=== PATIENT | male | born 1945 | race Hispanic/Latino ===

== ENCOUNTER 2020-08-31 15:21 | Outpatient (CLI) | payer MEDICARE ==
--- NOTE | 2020-08-31 16:57 | XRay Report ---
THORACIC SPINE 2 VIEWS INDICATION / CLINICAL INFORMATION: BACK PAIN. COMPARISON: None available. FINDINGS: VERTEBRAE: No acute fracture. No significant malalignment. DISC SPACES / FACET JOINTS:Moderate multilevel degenerative spondylosis is seen throughout the thorac ic spine. PARASPINAL SOFT TISSUES:No significant abnormality. ADDITIONAL FINDINGS: IVC filter is noted. Signer Name: Yevgeniy Tracy MD Signed: 08/31/2020 4:52 PM Workstation Name: [id number]
== END 2020-08-31 15:22 | disposition home or self-care (01) ==
LOC: XRAY 15:21
PROVIDERS: ATTEND Internal Medicine Hematology & Oncology
DX: M47.814 Spondylosis without myelopathy or radiculopathy, thoracic region (principal); M54.9 Dorsalgia, unspecified
CPT/HCPCS: 72080

== ENCOUNTER 2020-12-24 15:11 | Outpatient (CLI) | payer MEDICARE ==
--- NOTE | 2020-12-24 16:07 | XRay Report ---
CLINICAL DATA: PAIN IN NECK AND SHOULDER TECHNICAL DATA: AP, lateral, and odontoid views of the cervical spine were obtained. FINDINGS: Only the first 6 vertebral body are clearly visualized. The vertebral body heights are within normal limits. Bones are osteopenic. Anterior osteophytes are present throughout the cervical spine region IMPRESSION: 1. Osteopenia 2. Degenerative changes as noted Signer Name: Rajinder Kang MD Signed: 12/24/2020 4:03 PM Workstation Name: [id number]
== END 2020-12-24 15:12 | disposition home or self-care (01) ==
LOC: XRAY 15:11
PROVIDERS: ATTEND Internal Medicine Hematology & Oncology
DX: M47.812 Spondylosis without myelopathy or radiculopathy, cervical region (principal); M85.88 Other specified disorders of bone density and structure, other site
CPT/HCPCS: 72040

== ENCOUNTER 2021-01-14 11:36 | Outpatient (CLI) | payer MEDICARE ==
--- NOTE | 2021-01-14 13:24 | XRay Report ---
Right shoulder 2 views INDICATION: Tender FINDINGS: Glenohumeral and AC degenerative change. No displaced fracture. If there is concern for a s oft tissue mass MRI is recommended. Signer Name: Tyrel Bower MD Signed: 01/14/2021 1:20 PM Workstation Name: [id number]
== END 2021-01-14 11:37 | disposition home or self-care (01) ==
LOC: XRAY 11:36
PROVIDERS: ATTEND Internal Medicine Hematology & Oncology
DX: M19.011 Primary osteoarthritis, right shoulder (principal)

== ENCOUNTER 2021-03-17 10:10 | Emergency (ER) | payer MEDICARE ==
[2021-03-17 10:36] VITALS: BP 104/53
[2021-03-17 12:56] LABS: Basophils % (Auto) 0.7 % (0.0-1.8); Eosinophils # (Auto) 0.1 K/mm3 (0.0-0.4); Eosinophils % (Auto) 2.1 % (0.0-4.3); Hematocrit 32.5 % (35.5-45.6); Hemoglobin 10.4 gm/dl (11.8-15.2); Lymphocytes # (Auto) 1.3 K/mm3 (1.2-5.4); Lymphocytes % (Auto) 22.1 % (13.4-35.0); Mean Corpuscular HGB Conc 32 % (32-34); Mean Corpuscular Volume 87 fl (84-94); Monocytes # (Auto) 0.5 K/mm3 (0.0-0.8); Monocytes % (Auto) 8.6 % (0.0-7.3); Platelet Count 231 K/mm3 (140-440); Red Blood Count 3.76 M/mm3 (3.65-5.03); Red Cell Distribution Width 18.5 % (13.2-15.2)
[2021-03-17 13:11] LABS: Albumin 3.9 g/dL (3.9-5); Calcium 8.4 mg/dL (8.4-10.2)
== END 2021-03-17 15:40 | disposition home or self-care (01) ==
LOC: ED 10:10
DX: S62.112A Displaced fracture of triquetrum [cuneiform] bone, left wrist, initial encounter for closed fracture (principal); S52.515A Nondisplaced fracture of left radial styloid process, initial encounter for closed fracture; S20.219A Contusion of unspecified front wall of thorax, initial encounter; J18.9 Pneumonia, unspecified organism; J98.11 Atelectasis; R55 Syncope and collapse; I10 Essential (primary) hypertension; J44.9 Chronic obstructive pulmonary disease, unspecified; Z90.49 Acquired absence of other specified parts of digestive tract; Z98.890 Other specified postprocedural states; Z87.891 Personal history of nicotine dependence; Z79.2 Long term (current) use of antibiotics; W18.30XA Fall on same level, unspecified, initial encounter; Y93.89 Activity, other specified; Y92.89 Other specified places as the place of occurrence of the external cause; Y99.8 Other external cause status
CPT/HCPCS: 36415; 80053; 83880; 84484; 85025; 93005

== ENCOUNTER 2021-05-06 09:43 | Outpatient (CLI) | payer MEDICARE ==
--- NOTE | 2021-05-06 17:19 | Vascular Lab Report ---
DUPLEX DOPPLER ULTRASOUND CAROTID, BILATERAL INDICATION / CLINICAL INFORMATION: SYNCOPE. COMPARISON: None available. FINDINGS: RIGHT CAROTID: Moderate plaque in ICA proximally - PLAQUE ESTIMATE (%): 50-75% - CCA velocity: 64 cm/sec. - ICA peak systolic velocity: 148 cm/sec. - ICA/CCA PSV Ratio: 2.33 Right Vertebral Artery: Antegrade flow. LEFT CAROTID: Moderate plaque - PLAQUE ESTIMATE: 50-75% - CCA velocity: 67 cm/sec. - ICA peak systolic velocity: 166 cm/sec. - ICA/CCA PSV Ratio: 2.49 Left Vertebral Artery: Antegrade flow. IMPRESSION: 1. Right Internal Carotid Artery: 50-69% diameter stenosis. 2. Left Internal Carotid Artery: 50-69% diameter stenosis. Velocity criteria are extrapolated from diameter data as defined by the Society of Radiologists in Ul trasound Consensus Conference, Radiology 2003; 229;340-346. NO STENOSIS (NORMAL) * Plaque = none; ICA PSV < 125 cm/sec; ICA/CCA PSV Ratio < 2.0 <50% STENOSIS * Plaque < 50%; ICA PSV < 125 cm/sec; ICA/CCA PSV Ratio < 2.0 50-69% STENOSIS * Plaque > 50%; ICA PSV = 125-230 cm/sec; ICA/CCA PSV Ratio = 2.0-4.0 >70% BUT <100% STENOSIS * Plaque > 50%; ICA PSV > 230 cm/sec; ICA/CCA PSV Ratio > 4.0 NEAR OCCLUSION * Plaque = visible lumen; ICA PSV = high/low/none; ICA/CCA PSV Ratio = variable TOTAL OCCLUSION * Plaque = no lumen; ICA PSV = none; ICA/CCA PSV Ratio = N/A Signer Name: Tyrel Bower MD Signed: 05/06/2021 5:15 PM Workstation Name: [id number]
== END 2021-05-06 09:44 | disposition home or self-care (01) ==
LOC: VAS 09:43
PROVIDERS: ATTEND Internal Medicine Hematology & Oncology
DX: I65.23 Occlusion and stenosis of bilateral carotid arteries (principal)
CPT/HCPCS: 93880

== ENCOUNTER 2021-05-23 13:35 | Inpatient (IN) | payer MEDICARE ==
[2021-05-23] MEDS ORDERED: IPRATROPIUM 0.02% NEBU 2.5 ML IH ONE ×2 (17:19→20:06)
[2021-05-23] MEDS ORDERED: ALBUTEROL 2.5 MG/3 ML NEBU IH ONE ×2 (17:19→20:06)
--- NOTE | 2021-05-23 17:28 | Emergency Department Report ---
ED General Adult HPI - General Chief complaint: Dyspnea/Respdistress Stated complaint: MARKY/SOB Time Seen by Provider: 05/23/21 16:55 Source: EMS Mode of arrival: Stretcher Limitations: No Limitations - History of Present Illness Initial comments: Patient presents to the emergency department the chief complaint of a nagging cough that started yesterday. Patient states he has history of COPD and wears 2.5 L oxygen at home. Patient states last night he began to have a very severe cough which has persisted since his onset. Patient also complains of mild shortness of breath when trying to lay flat. Patient states this feels different than his COPD exacerbations. Patient complains of substernal chest pain that he describes as tightness in nature. Patient also tells me that he takes a water pill daily -: Sudden Severity scale (0 -10): 0 Consistency: constant Improves with: none Worsens with: movement Associated Symptoms: denies other symptoms Treatments Prior to Arrival: none - Related Data Home Medications Medication Instructions Recorded Confirmed Last Taken No Known Home Medications [No 02/04/20 02/04/20 Unknown Reported Home Medications] Previous Rx's Medication Instructions Recorded Last Taken Type Amoxicillin/Potassium Clav 1 each PO BID #10 tablet 03/17/21 Unknown Rx [Augmentin 875-125 Tablet] Allergies Allergy/AdvReac Type Severity Reaction Status Date / Time No Known Allergies Allergy Verified 07/24/20 15:58 ED Review of Systems ROS: Stated complaint: MARKY/SOB Other details as noted in HPI Constitutional: denies: chills, fever Eyes: denies: eye pain, eye discharge, vision change ENT: denies: ear pain, throat pain Respiratory: shortness of breath. denies: cough, wheezing Cardiovascular: denies: chest pain, palpitations Endocrine: no symptoms reported Gastrointestinal: denies: abdominal pain, nausea, diarrhea Genitourinary: denies: urgency, dysuria Musculoskeletal: denies: back pain, joint swelling, arthralgia Skin: denies: rash, lesions Neurological: denies: headache, weakness, paresthesias Psychiatric: denies: anxiety, depression Hematological/Lymphatic: denies: easy bleeding, easy bruising ED Past Medical Hx - Past Medical History Previous Medical History?: Yes Hx Hypertension: Yes Hx COPD: Yes - Surgical History Past Surgical History?: No Hx Cholecystectomy: Yes Additional Surgical History: bilateral hip replacement. colon rupture. hernia repair x 2 - Social History Smoking Status: Former Smoker Substance Use Type: Alcohol - Medications Home Medications: Home Medications Medication Instructions Recorded Confirmed Last Taken Type No Known Home Medications [No 02/04/20 02/04/20 Unknown History Reported Home Medications] Amoxicillin/Potassium Clav 1 each PO BID #10 tablet 03/17/21 Unknown Rx [Augmentin 875-125 Tablet] ED Physical Exam - General Limitations: No Limitations General appearance: alert, in no apparent distress - Head Head exam: Present: atraumatic, normocephalic - Eye Eye exam: Present: normal appearance, PERRL, EOMI - ENT ENT exam: Present: mucous membranes moist - Neck Neck exam: Present: normal inspection - Respiratory Respiratory exam: Present: normal lung sounds bilaterally, rales, other (Mild respiratory distress) - Cardiovascular Cardiovascular Exam: Present: regular rate, normal rhythm. Absent: systolic murmur, diastolic murmur, rubs, gallop - GI/Abdominal GI/Abdominal exam: Present: soft, normal bowel sounds. Absent: distended, tenderness - Rectal Rectal exam: Present: deferred - Extremities Exam Extremities exam: Present: normal inspection, pedal edema - Back Exam Back exam: Present: normal inspection - Neurological Exam Neurological exam: Present: alert, oriented X3, CN II-XII intact. Absent: motor sensory deficit - Psychiatric Psychiatric exam: Present: normal affect, normal mood - Skin Skin exam: Present: warm, dry, intact, normal color. Absent: rash ED Course Vital Signs 05/23/21 05/23/21 13:37 20:13 Pulse Rate 92 H Pulse Rate [ 94 H Bilateral] Respiratory 21 Rate Respiratory 20 Rate [Bilateral ] Blood Pressure 197/106 [Left] O2 Sat by Pulse 98 Oximetry ED Medical Decision Making - Lab Data Result diagrams: 05/23/21 17:37 05/23/21 17:37 Lab Results 05/23/21 05/23/21 05/23/21 Range/Units 17:37 17:37 17:37 WBC 6.5 (4.5-11.0) K/mm3 RBC 4.57 (3.65-5.03) M/mm3 Hgb 13.0 (11.8-15.2) gm/dl Hct 40.0 (35.5-45.6) % MCV 88 (84-94) fl MCH 29 (28-32) pg MCHC 33 (32-34) % RDW 19.3 H (13.2-15.2) % Plt Count 215 (140-440) K/mm3 Add Manual Diff Complete Total Counted 100 Seg Neutrophils % Reed Repairer Seg Neuts % (Manual) 86.0 H (40.0-70.0) % Lymphocytes % (Manual) 10.0 L (13.4-35.0) % Monocytes % (Manual) 4.0 (0.0-7.3) % Nucleated RBC % Not Reportable Seg Neutrophils # Man 5.6 (1.8-7.7) K/mm3 Band Neutrophils # 0.0 K/mm3 Lymphocytes # (Manual) 0.7 L (1.2-5.4) K/mm3 Abs React Lymphs (Man) 0.0 K/mm3 Monocytes # (Manual) 0.3 (0.0-0.8) K/mm3 Eosinophils # (Manual) 0.0 (0.0-0.4) K/mm3 Basophils # (Manual) 0.0 (0.0-0.1) K/mm3 Metamyelocytes # 0.0 K/mm3 Myelocytes # 0.0 K/mm3 Promyelocytes # 0.0 K/mm3 Blast Cells # 0.0 K/mm3 WBC Morphology Not Reportable Hypersegmented Neuts Not Reportable Hyposegmented Neuts Not Reportable Hypogranular Neuts Not Reportable Smudge Cells Not Reportable Toxic Granulation Not Reportable Toxic Vacuolation Not Reportable Dohle Bodies Not Reportable Pelger-Huet Anomaly Not Reportable Fabricio Rods Not Reportable Platelet Estimate Not Reportable Clumped Platelets Not Reportable Plt Clumps, EDTA Not Reportable Large Platelets Not Reportable Giant Platelets Not Reportable Platelet Satelliting Not Reportable Plt Morphology Comment Not Reportable RBC Morphology Normal Dimorphic RBCs Not Reportable Polychromasia Not Reportable Hypochromasia Not Reportable Poikilocytosis Not Reportable Anisocytosis Not Reportable Microcytosis Not Reportable Macrocytosis Not Reportable Spherocytes Not Reportable Pappenheimer Bodies Not Reportable Sickle Cells Not Reportable Target Cells Not Reportable Tear Drop Cells Not Reportable Ovalocytes Not Reportable Helmet Cells Not Reportable Perry-Ridgemark Bodies Not Reportable Kerrick Rings Not Reportable Eldred Cells Not Reportable Bite Cells Not Reportable Crenated Cell Not Reportable Elliptocytes Not Reportable Acanthocytes (Spur) Not Reportable Rouleaux Not Reportable Hemoglobin C Crystals Not Reportable Schistocytes Not Reportable Malaria parasites Not Reportable Julio Cesar Bodies Not Reportable Hem Pathologist Commnt No PT (12.2-14.9) Sec. INR (0.87-1.13) APTT (24.2-36.6) Sec. Sodium 138 (137-145) mmol/L Potassium 4.4 (3.6-5.0) mmol/L Chloride 98.3 (98-107) mmol/L Carbon Dioxide 26 (22-30) mmol/L Anion Gap 18 mmol/L BUN 9 (9-20) mg/dL Creatinine 1.1 (0.8-1.3) mg/dL Estimated GFR > 60 ml/min BUN/Creatinine Ratio 8 % Glucose 120 H (75-100) mg/dL Lactic Acid 1.40 (0.7-2.0) mmol/L Calcium 8.8 (8.4-10.2) mg/dL Total Bilirubin 0.60 (0.1-1.2) mg/dL AST 22 (5-40) units/L ALT 10 (7-56) units/L Alkaline Phosphatase 77 (35-129) units/L Troponin T 0.030 H (0.00-0.029) ng/mL NT-Pro-B Natriuret Pep (0-900) pg/mL Total Protein 7.9 (6.3-8.2) g/dL Albumin 3.9 (3.9-5) g/dL Albumin/Globulin Ratio 1.0 % Triglycerides 93 (2-149) mg/dL Cholesterol 140 (50-199) mg/dL LDL Cholesterol Direct 63 (50-130) mg/dL HDL Cholesterol 67 H (40-59) mg/dL Cholesterol/HDL Ratio 2.08 % 05/23/21 05/23/21 05/23/21 Range/Units 17:37 17:37 20:01 WBC (4.5-11.0) K/mm3 RBC (3.65-5.03) M/mm3 Hgb (11.8-15.2) gm/dl Hct (35.5-45.6) % MCV (84-94) fl MCH (28-32) pg MCHC (32-34) % RDW (13.2-15.2) % Plt Count (140-440) K/mm3 Add Manual Diff Total Counted Seg Neutrophils % Seg Neuts % (Manual) (40.0-70.0) % Lymphocytes % (Manual) (13.4-35.0) % Monocytes % (Manual) (0.0-7.3) % Nucleated RBC % Seg Neutrophils # Man (1.8-7.7) K/mm3 Band Neutrophils # K/mm3 Lymphocytes # (Manual) (1.2-5.4) K/mm3 Abs React Lymphs (Man) K/mm3 Monocytes # (Manual) (0.0-0.8) K/mm3 Eosinophils # (Manual) (0.0-0.4) K/mm3 Basophils # (Manual) (0.0-0.1) K/mm3 Metamyelocytes # K/mm3 Myelocytes # K/mm3 Promyelocytes # K/mm3 Blast Cells # K/mm3 WBC Morphology Hypersegmented Neuts Hyposegmented Neuts Hypogranular Neuts Smudge Cells Toxic Granulation Toxic Vacuolation Dohle Bodies Pelger-Huet Anomaly Fabricio Rods Platelet Estimate Clumped Platelets Plt Clumps, EDTA Large Platelets Giant Platelets Platelet Satelliting Plt Morphology Comment RBC Morphology Dimorphic RBCs Polychromasia Hypochromasia Poikilocytosis Anisocytosis Microcytosis Macrocytosis Spherocytes Pappenheimer Bodies Sickle Cells Target Cells Tear Drop Cells Ovalocytes Helmet Cells Perry-Ridgemark Bodies Kerrick Rings Eldred Cells Bite Cells Crenated Cell Elliptocytes Acanthocytes (Spur) Rouleaux Hemoglobin C Crystals Schistocytes Malaria parasites Julio Cesar Bodies Hem Pathologist Commnt PT 20.2 H (12.2-14.9) Sec. INR 1.66 H (0.87-1.13) APTT 32.9 (24.2-36.6) Sec. Sodium (137-145) mmol/L Potassium (3.6-5.0) mmol/L Chloride (98-107) mmol/L Carbon Dioxide (22-30) mmol/L Anion Gap mmol/L BUN (9-20) mg/dL Creatinine (0.8-1.3) mg/dL Estimated GFR ml/min BUN/Creatinine Ratio % Glucose (75-100) mg/dL Lactic Acid (0.7-2.0) mmol/L Calcium (8.4-10.2) mg/dL Total Bilirubin (0.1-1.2) mg/dL AST (5-40) units/L ALT (7-56) units/L Alkaline Phosphatase (35-129) units/L Troponin T 0.031 H (0.00-0.029) ng/mL NT-Pro-B Natriuret Pep 3136 H (0-900) pg/mL Total Protein (6.3-8.2) g/dL Albumin (3.9-5) g/dL Albumin/Globulin Ratio % Triglycerides (2-149) mg/dL Cholesterol (50-199) mg/dL LDL Cholesterol Direct (50-130) mg/dL HDL Cholesterol (40-59) mg/dL Cholesterol/HDL Ratio % - EKG Data -: EKG Interpreted by Me EKG shows normal: sinus rhythm Rate: tachycardia - Radiology Data Radiology results: report reviewed - Medical Decision Making Patient received a continuous breathing treatment as well as 40 mg IV Lasix repeat evaluation of the patient multiple times from to be tachypneic with respiratory rate approximately 28 breaths/min Critical Care Time: Yes Critical care time in (mins) excluding proc time.: 35 Critical care attestation.: If time is entered above; I have spent that time in minutes in the direct care of this critically ill patient, excluding procedure time. ED Disposition Clinical Impression: Dyspnea, Orthopnea, Chest pain, COPD (chronic obstructive pulmonary disease) Disposition: ADMITTED INPATIENT Is pt being admited?: No Does the pt Need Aspirin: No Condition: Stable Instructions: Chronic Obstructive Pulmonary Disease (ED) Heart Score - HEART Score History: Slightly suspicious EKG: Non-specific Age: > 65 Risk factors: 1-2 risk factors Troponin: 1-3x normal limit HEART Score: 5 - EKG Read Time Time EKG Completed: 22:40 EKG Read Time: 22:42
--- NOTE | 2021-05-23 17:52 | XRay Report ---
CHEST 1 VIEW 05/23/2021 5:32 PM INDICATION / CLINICAL INFORMATION: Dyspnea. COMPARISON: 03/17/21. FINDINGS: SUPPORT DEVICES: None. HEART / MEDIASTINUM: Mild cardiomegaly with a left ventricular configuration is stable. Pulmonary vas culature is normal. LUNGS / PLEURA: Patchy parenchymal opacity in the right lower lung has improved significantly. There is minimal residual bibasilar subsegmental atelectasis/scarring. No new abnormality. No pleural effus ion. No pneumothorax. ADDITIONAL FINDINGS: No significant additional findings. IMPRESSION: Mild bibasilar subsegmental atelectasis/scarring. Patchy parenchymal disease in the right lower lung has otherwise cleared since 03/17/21. Signer Name: Kenny Simpson MD Signed: 05/23/2021 5:48 PM Workstation Name: [id number]
[2021-05-23] MEDS ORDERED: guaiFENesin/CODEINE 100-10MG ORAL LIQD 5 ML PO ONE (18:00)
[2021-05-23 18:05] LABS: Mean Corpuscular HGB Conc 33 % (32-34); Mean Corpuscular Volume 88 fl (84-94); Platelet Count 215 K/mm3 (140-440); Red Blood Count 4.57 M/mm3 (3.65-5.03); Red Cell Distribution Width 19.3 % (13.2-15.2)
[2021-05-23 18:15] LABS: INR 1.66 (0.87-1.13)
[2021-05-23 18:16] LABS: Partial Thromboplastin Time 32.9 Sec. (24.2-36.6)
[2021-05-23 18:21] LABS: Alanine Aminotransferase 10 units/L (7-56); Albumin 3.9 g/dL (3.9-5); BUN/Creatinine Ratio 8; Blood Urea Nitrogen 9 mg/dL (9-20); Calcium 8.8 mg/dL (8.4-10.2); Hemolysis Index 10
[2021-05-23 18:41] LABS: Chol/HDL Ratio 2.08 %; HDL Cholesterol 67 mg/dL (40-59); LDL Cholesterol,Direct 63 mg/dL (50-130)
[2021-05-23] MEDS ORDERED: FUROSEMIDE 40 MG/4 ML INJ IV ONE (19:14)
[2021-05-23 19:45] LABS: Total Cells Counted 100
[2021-05-23 19:46] LABS: RBC Morphology Normal
[2021-05-23] MEDS ORDERED: MORPHINE 4 MG/1 ML INJ IV ONE (21:27)
[2021-05-23] MEDS ORDERED: ONDANSETRON 4 MG/2 ML INJ IV ONE (21:27)
[2021-05-23] MEDS ORDERED: FUROSEMIDE 40 MG/4 ML INJ ONE (22:55)
[2021-05-23] MEDS ORDERED: ONDANSETRON 4 MG/2 ML INJ IV PRN (23:17)
[2021-05-23] MEDS ORDERED: ACETAMINOPHEN 325 MG TAB PO PRN ×2 (23:17)
[2021-05-23] MEDS ORDERED: NITROGLYCERIN 0.4 MG TAB SUBL SL PRN (23:17)
[2021-05-23] MEDS ORDERED: traMADol 50 MG TAB PO PRN (23:17)
[2021-05-23] MEDS ORDERED: ALBUTEROL 2.5 MG/3 ML NEBU IH PRN (23:17)
--- NOTE | 2021-05-23 23:28 | History and Physical Report ---
History of Present Illness Date of examination: 05/23/21 Date of admission: 05/23/2021 Chief complaint: Shortness of breath Cough History of present illness: 75 years old male with history of COPD was brought to the emergency room because of shortness of breath and nagging cough that started yesterday. Patient states he has history of COPD and wears 2.5 L oxygen at home. Patient states last night he began to have a very severe cough which has persisted since his onset. Patient also complains of mild shortness of breath when trying to lay flat. Patient states this feels different than his COPD exacerbations. Patient complains of substernal chest pain that he describes as tightness in nature. Patient also tells me that he takes a water pill daily In the emergency room patient BNP is 3136, patient troponin is 0.030. Also chest x-ray shows mild bibasilar subsegmental atelectasis/scaring. Patchy parenchymal disease in the right lower lung base Past History Past Medical History: COPD, hypertension Medications and Allergies Allergies Allergy/AdvReac Type Severity Reaction Status Date / Time No Known Allergies Allergy Verified 07/24/20 15:58 Home Medications Medication Instructions Recorded Confirmed Last Taken Type No Known Home Medications [No 02/04/20 02/04/20 Unknown History Reported Home Medications] Amoxicillin/Potassium Clav 1 each PO BID #10 tablet 03/17/21 Unknown Rx [Augmentin 875-125 Tablet] Active Meds: Active Medications Acetaminophen (Acetaminophen 325 Mg Tab) 650 mg PO Q4H PRN PRN Reason: Pain MILD(1-3)/Fever >100.5/[place] Acetaminophen (Acetaminophen 325 Mg Tab) 650 mg PO Q6H PRN PRN Reason: Pain, Mild (1-3) Albuterol (Albuterol 2.5 Mg/3 Ml Nebu) 2.5 mg IH Q4HRT PRN PRN Reason: Shortness Of Breath Albuterol/Ipratropium (Ipratropium/Albuterol Sulfate 3 Ml Ampul.Neb) 1 ampul IH Q6HRT [facility] Aspirin (Aspirin 325 Mg Tab) 325 mg PO QDAY [facility] Atorvastatin Calcium (Atorvastatin 40 Mg Tab) 40 mg PO QHS [facility] Famotidine (Famotidine 20 Mg Tab) 20 mg PO BID [facility] Furosemide (Furosemide 40 Mg/4 Ml Inj) 40 mg IV BID@0600,1800 [facility] Heparin Sodium (Porcine) (Heparin 5,000 Unit/1 Ml Vial) 5,000 unit SUB-Q Q8HR [facility] Hydromorphone HCl (Hydromorphone 1 Mg/1 Ml Inj) 0.5 mg IV Q3H PRN PRN Reason: Pain , Severe (7-10) Nitroglycerin (Nitroglycerin 0.4 Mg Tab Subl) 0.4 mg SL Q5M PRN PRN Reason: Chest Pain Ondansetron HCl (Ondansetron 4 Mg/2 Ml Inj) 4 mg IV Q8H PRN PRN Reason: Nausea And Vomiting Oxycodone/Acetaminophen (Oxycodone /Acetaminophen 5-325mg Tab) 1 tab PO Q6H PRN PRN Reason: Pain, Moderate (4-6) Ropinirole HCl (Ropinirole 1 Mg Tab) 1 mg PO QHS [facility] Sodium Chloride (Sodium Chloride 0.9% 10 Ml Flush Syringe) 10 ml IV BID [facility] Sodium Chloride (Sodium Chloride 0.9% 10 Ml Flush Syringe) 10 ml IV PRN PRN PRN Reason: LINE FLUSH Sodium Chloride (Sodium Chloride 0.9% 10 Ml Flush Syringe) 10 ml IV PRN PRN PRN Reason: LINE FLUSH Tramadol HCl (Tramadol 50 Mg Tab) 50 mg PO Q6H PRN PRN Reason: Pain, Moderate (4-6) Review of Systems Cardiovascular: orthopnea, edema, shortness of breath, dyspnea on exertion Respiratory: shortness of breath, dyspnea on exertion Exam - Constitutional Vitals: Temp Pulse Resp BP Pulse Ox 98.9 F 94 H 20 135/82 94 05/23/21 18:14 05/23/21 20:13 05/23/21 20:13 05/23/21 18:14 05/23/21 19:00 General appearance: Present: no acute distress, well-nourished - EENT Eyes: Present: PERRL ENT: hearing intact, clear oral mucosa - Neck Neck: Present: supple, normal ROM - Respiratory Respiratory effort: normal Respiratory: bilateral: diminished, rales - Cardiovascular Heart Sounds: Present: S1 & S2. Absent: rub, click - Extremities Extremities: pulses symmetrical Extremity abnormal: edema Peripheral Pulses: within normal limits - Abdominal General gastrointestinal: Present: soft, non-tender, non-distended, normal bowel sounds Male genitourinary: Present: normal - Integumentary Integumentary: Present: clear, warm, dry - Musculoskeletal Musculoskeletal: gait normal, strength equal bilaterally - Psychiatric Psychiatric: appropriate mood/affect, intact judgment & insight - Neurologic Neurologic: CNII-XII intact, moves all extremities HEART Score - HEART Score EKG: Non-specific Age: > 65 Risk factors: 1-2 risk factors Troponin: Troponin T 0.031 ng/mL (0.00-0.029) H 05/23/21 20:01 Troponin: 1-3x normal limit Results - Labs CBC & Chem 7: 05/23/21 17:37 05/23/21 17:37 Labs: Laboratory Last Values WBC 6.5 K/mm3 (4.5-11.0) 05/23/21 17:37 RBC 4.57 M/mm3 (3.65-5.03) 05/23/21 17:37 Hgb 13.0 gm/dl (11.8-15.2) 05/23/21 17:37 Hct 40.0 % (35.5-45.6) 05/23/21 17:37 MCV 88 fl (84-94) 05/23/21 17:37 MCH 29 pg (28-32) 05/23/21 17:37 MCHC 33 % (32-34) 05/23/21 17:37 RDW 19.3 % (13.2-15.2) H 05/23/21 17:37 Plt Count 215 K/mm3 (140-440) 05/23/21 17:37 Add Manual Diff Complete 05/23/21 17:37 Total Counted 100 05/23/21 17:37 Seg Neutrophils % Marriage Counselor 05/23/21 17:37 Seg Neuts % (Manual) 86.0 % (40.0-70.0) H 05/23/21 17:37 Lymphocytes % (Manual) 10.0 % (13.4-35.0) L 05/23/21 17:37 Monocytes % (Manual) 4.0 % (0.0-7.3) 05/23/21 17:37 Nucleated RBC % Not Reportable 05/23/21 17:37 Seg Neutrophils # Man 5.6 K/mm3 (1.8-7.7) 05/23/21 17:37 Band Neutrophils # 0.0 K/mm3 05/23/21 17:37 Lymphocytes # (Manual) 0.7 K/mm3 (1.2-5.4) L 05/23/21 17:37 Abs React Lymphs (Man) 0.0 K/mm3 05/23/21 17:37 Monocytes # (Manual) 0.3 K/mm3 (0.0-0.8) 05/23/21 17:37 Eosinophils # (Manual) 0.0 K/mm3 (0.0-0.4) 05/23/21 17:37 Basophils # (Manual) 0.0 K/mm3 (0.0-0.1) 05/23/21 17:37 Metamyelocytes # 0.0 K/mm3 05/23/21 17:37 Myelocytes # 0.0 K/mm3 05/23/21 17:37 Promyelocytes # 0.0 K/mm3 05/23/21 17:37 Blast Cells # 0.0 K/mm3 05/23/21 17:37 WBC Morphology Not Reportable 05/23/21 17:37 Hypersegmented Neuts Not Reportable 05/23/21 17:37 Hyposegmented Neuts Not Reportable 05/23/21 17:37 Hypogranular Neuts Not Reportable 05/23/21 17:37 Smudge Cells Not Reportable 05/23/21 17:37 Toxic Granulation Not Reportable 05/23/21 17:37 Toxic Vacuolation Not Reportable 05/23/21 17:37 Dohle Bodies Not Reportable 05/23/21 17:37 Pelger-Huet Anomaly Not Reportable 05/23/21 17:37 Fabricio Rods Not Reportable 05/23/21 17:37 Platelet Estimate Not Reportable 05/23/21 17:37 Clumped Platelets Not Reportable 05/23/21 17:37 Plt Clumps, EDTA Not Reportable 05/23/21 17:37 Large Platelets Not Reportable 05/23/21 17:37 Giant Platelets Not Reportable 05/23/21 17:37 Platelet Satelliting Not Reportable 05/23/21 17:37 Plt Morphology Comment Not Reportable 05/23/21 17:37 RBC Morphology Normal 05/23/21 17:37 Dimorphic RBCs Not Reportable 05/23/21 17:37 Polychromasia Not Reportable 05/23/21 17:37 Hypochromasia Not Reportable 05/23/21 17:37 Poikilocytosis Not Reportable 05/23/21 17:37 Anisocytosis Not Reportable 05/23/21 17:37 Microcytosis Not Reportable 05/23/21 17:37 Macrocytosis Not Reportable 05/23/21 17:37 Spherocytes Not Reportable 05/23/21 17:37 Pappenheimer Bodies Not Reportable 05/23/21 17:37 Sickle Cells Not Reportable 05/23/21 17:37 Target Cells Not Reportable 05/23/21 17:37 Tear Drop Cells Not Reportable 05/23/21 17:37 Ovalocytes Not Reportable 05/23/21 17:37 Helmet Cells Not Reportable 05/23/21 17:37 [place] Bodies Not Reportable 05/23/21 17:37 Mills Rings Not Reportable 05/23/21 17:37 Donaldo Cells Not Reportable 05/23/21 17:37 Bite Cells Not Reportable 05/23/21 17:37 Crenated Cell Not Reportable 05/23/21 17:37 Elliptocytes Not Reportable 05/23/21 17:37 Acanthocytes (Spur) Not Reportable 05/23/21 17:37 Rouleaux Not Reportable 05/23/21 17:37 Hemoglobin C Crystals Not Reportable 05/23/21 17:37 Schistocytes Not Reportable 05/23/21 17:37 Malaria parasites Not Reportable 05/23/21 17:37 Julio Cesar Bodies Not Reportable 05/23/21 17:37 Hem Pathologist Commnt No 05/23/21 17:37 PT 20.2 Sec. (12.2-14.9) H 05/23/21 17:37 INR 1.66 (0.87-1.13) H 05/23/21 17:37 APTT 32.9 Sec. (24.2-36.6) 05/23/21 17:37 Sodium 138 mmol/L (137-145) 05/23/21 17:37 Potassium 4.4 mmol/L (3.6-5.0) 05/23/21 17:37 Chloride 98.3 mmol/L (98-107) 05/23/21 17:37 Carbon Dioxide 26 mmol/L (22-30) 05/23/21 17:37 Anion Gap 18 mmol/L 05/23/21 17:37 BUN 9 mg/dL (9-20) 05/23/21 17:37 Creatinine 1.1 mg/dL (0.8-1.3) 05/23/21 17:37 Estimated GFR > 60 ml/min 05/23/21 17:37 BUN/Creatinine Ratio 8 % 05/23/21 17:37 Glucose 120 mg/dL (75-100) H 05/23/21 17:37 Lactic Acid 1.40 mmol/L (0.7-2.0) 05/23/21 17:37 Calcium 8.8 mg/dL (8.4-10.2) 05/23/21 17:37 Total Bilirubin 0.60 mg/dL (0.1-1.2) 05/23/21 17:37 AST 22 units/L (5-40) 05/23/21 17:37 ALT 10 units/L (7-56) 05/23/21 17:37 Alkaline Phosphatase 77 units/L (35-129) 05/23/21 17:37 Troponin T 0.031 ng/mL (0.00-0.029) H 05/23/21 20:01 NT-Pro-B Natriuret Pep 3136 pg/mL (0-900) H 05/23/21 17:37 Total Protein 7.9 g/dL (6.3-8.2) 05/23/21 17:37 Albumin 3.9 g/dL (3.9-5) 05/23/21 17:37 Albumin/Globulin Ratio 1.0 % 05/23/21 17:37 Triglycerides 93 mg/dL (2-149) 05/23/21 17:37 Cholesterol 140 mg/dL (50-199) 05/23/21 17:37 LDL Cholesterol Direct 63 mg/dL (50-130) 05/23/21 17:37 HDL Cholesterol 67 mg/dL (40-59) H 05/23/21 17:37 Cholesterol/HDL Ratio 2.08 % 05/23/21 17:37 Microbiology: Microbiology 05/23/21 17:37 Peripheral/Venous Blood Culture - Preliminary Culture in Progress 05/23/21 17:37 Peripheral/Venous Blood Culture - Preliminary Culture in Progress - Imaging and Cardiology Chest x-ray: report reviewed Assessment and Plan VTE prophylaxis?: Chemical Plan of care discussed with patient/family: Yes - Patient Problems (1) Acute exacerbation of congestive heart failure Status: Acute Plan to address problem: Admit the patient to the medical telemetry. Cardiac diet. Fluid restriction. Maintain input output. Daily weight. Lasix 40 mg IV every 12 hours. E chocardiogram. Cardiology consult (2) Acute coronary syndrome Status: Acute Plan to address problem: Aspirin 325 mg p.o. daily. Lipitor 40 mg p.o. daily. Nitroglycerin as needed. Serial cardiac enzymes. Echocardiogram. Cardiology consult. Recheck lipid and BMP in the morning (3) COPD exacerbation Status: Acute Plan to address problem: Oxygen by nasal cannula 3 L/min. DuoNeb by nebulizer every 4 hours. Albuterol via nebulizer every 4 hours as needed. Robitussin 10 mL p.o. 3 times daily as needed. Consult pulmonary if needed (4) Hypertension Status: Acute Plan to address problem: Hydralazine 10 mg IV every 6 hours as needed. We will monitor the blood pressure closely. (5) DVT prophylaxis Status: Acute Plan to address problem: Heparin 5000 units subcu every 8 hours for DVT prophylaxis. Pepcid 20 mg p.o. twice daily for GI prophylaxis. Patient is a full code
[2021-05-23] MEDS ORDERED: guaiFENesin 200 MG TAB PO PRN (23:30)
[2021-05-23] MEDS ORDERED: hydrALAZINE 20 MG/1 ML INJ IV PRN (23:30)
[2021-05-24 00:01] LABS: Calcium 8.4 mg/dL (8.4-10.2)
[2021-05-24 03:27] LABS: Basophils % (Auto) 0.1 % (0.0-1.8); Hematocrit 37.4 % (35.5-45.6); Lymphocytes # (Auto) 0.3 K/mm3 (1.2-5.4); Lymphocytes % (Auto) 5.2 % (13.4-35.0); Mean Corpuscular HGB Conc 32 % (32-34); Mean Corpuscular Volume 89 fl (84-94); Monocytes # (Auto) 0.4 K/mm3 (0.0-0.8); Monocytes % (Auto) 6.6 % (0.0-7.3); Platelet Count 204 K/mm3 (140-440); Red Blood Count 4.23 M/mm3 (3.65-5.03); Red Cell Distribution Width 19.4 % (13.2-15.2)
[2021-05-24 03:38] LABS: Calcium 8.2 mg/dL (8.4-10.2)
[2021-05-24] MEDS: HYDROmorphone 1 MG/1 ML INJ IV PRN ×3 (04:10→16:34)
[2021-05-24] MEDS: oxyCODONE /ACETAMINOPHEN 5-325MG TAB PO PRN (04:18)
[2021-05-24] MEDS: cefTRIAXone/NS 1 GM/50 ML 1 GM/50 ML BAG IV SCH (04:20)
[2021-05-24] MEDS: IPRATROPIUM/ALBUTEROL SULFATE 3 ML AMPUL.NEB IH SCH ×4 (05:41→22:34)
[2021-05-24] MEDS: HEPARIN 5,000 UNIT/1 ML VIAL SUB-Q SCH ×2 (05:42→14:59)
[2021-05-24] MEDS: FUROSEMIDE 40 MG/4 ML INJ IV SCH ×2 (05:42→17:23)
--- NOTE | 2021-05-24 09:22 | Electrocardiograph Report ---
[facility] Test Date: 2021-05-23 Test Time: 22:40:43 Pat Name: SAMMY TEIXEIRA Department: Room: A465 Gender: M Clinical Consultant: : 1945 Requested By: FAITH TRAN Order Number: [id number] Reading MD: Maciel Mendes Measurements Intervals Steele Rate: 112 P: 31 NJ: 189 QRS: 24 QRSD: 96 T: 192 QT: 335 QTc: 458 Interpretive Statements Sinus tachycardia Atrial premature complex Repol abnrm suggests ischemia, lateral leads Compared to ECG 03/17/2021 14:00:43 Atrial premature complex(es) now present Early repolarization now present Possible ischemia now present Sinus rhythm no longer present Electronically Signed On 05-24-2021 9:22:07 EDT by Maciel Mendes
[2021-05-24] MEDS ORDERED: FAMOTIDINE 20 MG TAB PO SCH (10:00)
--- NOTE | 2021-05-24 10:25 | Consultation ---
History of Present Illness Consult date: 05/24/21 Consult reason: shortness of breath History of present illness: The patient is a 75-year-old man with a history of previous tobacco abuse, which resulted in severe COPD. He is on home oxygen therapy and home nebulizer therapy. He has no prior cardiac history. His primary care doctor is Dr. Boyer who he states also manages his pulmonary condition. He presents to the hospital with a 1 day history of increasing shortness of breath above his usual baseline. He states that he awoke in the middle of the night, feeling dyspneic, and found some malfunction of his oxygen concentrator that was by his bedside. [facility], he states that he became very anxious, which worsened his dyspnea and he eventually had the ambulance called and he was brought to the emergency room for further evaluation. There was no chest pain, no palpitations, no lower extremity edema. Currently, the patient is in the emergency room, feels better, despite nasal oxygen, he exhibits oral breathing, consistent with her severe underlying COPD. Work-up in the hospital so far, EKG was sinus rhythm, left ventricular hypertrophy by voltage criteria, no acute ST or T wave abnormalities. His chest x-ray showed a normal-sized cardiac silhouette, with diffuse chronic interstitial changes consistent with his COPD, no evident pulmonary edema. Past History Past Medical History: COPD, hypertension Medications and Allergies Allergies Allergy/AdvReac Type Severity Reaction Status Date / Time No Known Allergies Allergy Verified 07/24/20 15:58 Home Medications Medication Instructions Recorded Confirmed Last Taken Type No Known Home Medications [No 02/04/20 02/04/20 Unknown History Reported Home Medications] Amoxicillin/Potassium Clav 1 each PO BID #10 tablet 03/17/21 Unknown Rx [Augmentin 875-125 Tablet] Active Meds: Active Medications Acetaminophen (Acetaminophen 325 Mg Tab) 650 mg PO Q6H PRN PRN Reason: Pain, Mild (1-3) Albuterol (Albuterol 2.5 Mg/3 Ml Nebu) 2.5 mg IH Q4HRT PRN PRN Reason: Shortness Of Breath Albuterol/Ipratropium (Ipratropium/Albuterol Sulfate 3 Ml Ampul.Neb) 1 ampul IH Q6HRT [facility] Last Admin: 05/24/21 08:12 Dose: 1 ampul Documented by: Aspirin (Aspirin 325 Mg Tab) 325 mg PO QDAY [facility] Atorvastatin Calcium (Atorvastatin 40 Mg Tab) 40 mg PO QHS [facility] Famotidine (Famotidine 20 Mg Tab) 20 mg PO BID [facility] Furosemide (Furosemide 40 Mg/4 Ml Inj) 40 mg IV BID@0600,1800 [facility] Last Admin: 05/24/21 05:42 Dose: 40 mg Documented by: Guaifenesin (Guaifenesin 200 Mg Tab) 200 mg PO BIDAC PRN PRN Reason: Cough Last Admin: 05/24/21 05:14 Dose: 200 mg Documented by: Heparin Sodium (Porcine) (Heparin 5,000 Unit/1 Ml Vial) 5,000 unit SUB-Q Q8HR [facility] Last Admin: 05/24/21 05:42 Dose: 5,000 unit Documented by: Hydralazine HCl (Hydralazine 20 Mg/1 Ml Inj) 10 mg IV Q6H PRN PRN Reason: Blood Pressure Hydromorphone HCl (Hydromorphone 1 Mg/1 Ml Inj) 0.5 mg IV Q3H PRN PRN Reason: Pain , Severe (7-10) Last Admin: 05/24/21 07:15 Dose: 0.5 mg Documented by: Ceftriaxone Sodium (Rocephin/Ns 1 Gm/50 Ml) 1 gm in 50 mls @ 100 mls/hr IV Q24H [facility]; Protocol Last Admin: 05/24/21 04:20 Dose: 100 mls/hr Documented by: Nitroglycerin (Nitroglycerin 0.4 Mg Tab Subl) 0.4 mg SL Q5M PRN PRN Reason: Chest Pain Ondansetron HCl (Ondansetron 4 Mg/2 Ml Inj) 4 mg IV Q8H PRN PRN Reason: Nausea And Vomiting Oxycodone/Acetaminophen (Oxycodone /Acetaminophen 5-325mg Tab) 1 tab PO Q6H PRN PRN Reason: Pain, Moderate (4-6) Last Admin: 05/24/21 04:18 Dose: 1 tab Documented by: Ropinirole HCl (Ropinirole 1 Mg Tab) 1 mg PO QHS [facility] Sodium Chloride (Sodium Chloride 0.9% 10 Ml Flush Syringe) 10 ml IV BID [facility] Sodium Chloride (Sodium Chloride 0.9% 10 Ml Flush Syringe) 10 ml IV PRN PRN PRN Reason: LINE FLUSH Sodium Chloride (Sodium Chloride 0.9% 10 Ml Flush Syringe) 10 ml IV PRN PRN PRN Reason: LINE FLUSH Tramadol HCl (Tramadol 50 Mg Tab) 50 mg PO Q6H PRN PRN Reason: Pain, Moderate (4-6) Review of Systems Cardiovascular: shortness of breath, no chest pain, no orthopnea, no palpitations, no rapid/irregular heart beat, no edema, no syncope, no li ghtheadedness Physical Examination Vital Signs Pulse Resp BP Pulse Ox 92 H 21 197/106 98 05/23/21 13:37 05/23/21 13:37 05/23/21 13:37 05/23/21 13:37 General appearance: mild distress HEENT: Positive: PERRL Neck: Positive: neck supple Cardiac: Positive: Reg Rate and Rhythm Lungs: Positive: Decreased Breath Sounds, Wheezes Neuro: Positive: Grossly Intact Abdomen: Positive: Soft Male genitourinary: Positive: deferred Skin: Positive: Clear Extremities: Absent: edema Results 05/24/21 03:01 05/24/21 03:01 Cardiac Enzymes 05/23/21 Range/Units 17:37 AST 22 (5-40) units/L Coagulation 05/23/21 Range/Units 17:37 PT 20.2 H (12.2-14.9) Sec. INR 1.66 H (0.87-1.13) APTT 32.9 (24.2-36.6) Sec. Lipids 05/23/21 Range/Units 17:37 Triglycerides 93 (2-149) mg/dL Cholesterol 140 (50-199) mg/dL HDL Cholesterol 67 H (40-59) mg/dL Cholesterol/HDL Ratio 2.08 % CBC 05/23/21 05/24/21 Range/Units 17:37 03:01 WBC 6.5 5.9 (4.5-11.0) K/mm3 RBC 4.57 4.23 (3.65-5.03) M/mm3 Hgb 13.0 12.0 (11.8-15.2) gm/dl Hct 40.0 37.4 (35.5-45.6) % Plt Count 215 204 (140-440) K/mm3 Lymph # (Auto) 0.3 L (1.2-5.4) K/mm3 [place] # (Auto) 0.4 (0.0-0.8) K/mm3 Eos # (Auto) 0.0 (0.0-0.4) K/mm3 Baso # (Auto) 0.0 (0.0-0.1) K/mm3 Comprehensive Metabolic Panel 05/23/21 05/23/21 05/24/21 Range/Units 17:37 23:29 03:01 Sodium 138 138 138 (137-145) mmol/L Potassium 4.4 3.9 4.0 (3.6-5.0) mmol/L Chloride 98.3 99.7 99.2 (98-107) mmol/L Carbon Dioxide 26 23 27 (22-30) mmol/L BUN 9 13 16 (9-20) mg/dL Creatinine 1.1 1.7 H D 1.6 H (0.8-1.3) mg/dL Glucose 120 H 342 H 199 H (75-100) mg/dL Calcium 8.8 8.4 8.2 L (8.4-10.2) mg/dL AST 22 (5-40) units/L ALT 10 (7-56) units/L Alkaline Phosphatase 77 (35-129) units/L Total Protein 7.9 (6.3-8.2) g/dL Albumin 3.9 (3.9-5) g/dL EKG interpretations - Telemetry EKG Rhythm: Sinus Rhythm Assessment and Plan - Patient Problems (1) SOB (shortness of breath) Current Visit: Yes Status: Acute Plan to address problem: Patient's history and presentation appear likely due to exacerbation of his chronic lung disease. For cardiac work-up, we will get an echocardiogram for left ventricular function assessment, further cardiac evaluation and management will depend on clinical course.
[2021-05-24] MEDS: ASPIRIN 325 MG TAB PO SCH (11:17)
[2021-05-24] MEDS: FAMOTIDINE 20 MG TAB PO SCH (11:17)
[2021-05-24] MEDS: CETIRIZINE 10 MG TAB PO SCH (11:48)
[2021-05-24] MEDS: guaiFENesin/CODEINE 100-10MG ORAL LIQD 5 ML PO PRN (14:59)
[2021-05-24] MEDS ORDERED: ALPRAZolam 0.5 MG TAB PO PRN (18:53)
[2021-05-24] MEDS ORDERED: ALPRAZolam 1 MG TAB PO ONE (18:56)
[2021-05-24] MEDS: methylPREDNISolone Sod Succinate 125 MG/2 ML INJ IV SCH (19:20)
--- NOTE | 2021-05-24 19:27 | Progress Note ---
Assessment and Plan Assessment and plan: --Acute on chronic hypoxic respiratory failure; Status: Acute Secondary to CHF exacerbation, as well as acute exacerbation of COPD Patient is home oxygen dependent Complains of mild congestion, improved with IV Lasix We will add antihistamines, cough medicine --Acute exacerbation of congestive heart failure Status: Acute Antifailure medications, input output monitoring, low-sodium diet, fluid restriction Cardiology evaluation noted and appreciated, follow echocardiogram and ejection fraction --Non-ST elevation AK; probably type II Status: Acute Nonspecific elevation of troponins Due to CHF exacerbation Trend the cardiac enzymes, follow EKG, echocardiogram for LV function Cardiology already following --Acute coronary syndrome Status: Acute Continue cardiac medications aspirin 325 mg p.o. daily. Lipitor 40 mg p.o. daily. Nitroglycerin as needed. Serial cardiac enzymes. Echocardiogram. For LV function ejection fraction cardiology following --Acute exacerbation COPD; Status: Acute Oxygen titrate O2 sats to more than 90% Duo nebs , IV steroids , inhalation steroids , cough medicine Antihistamines , supportive care pulmonary consult if needed --Acute kidney injury; Status: Acute vasomotor nephropathy;present on admission Probably due to overdiuresis, closely monitor renal function Avoid nephrotoxins --Generalized anxiety; Status: Acute Xanax 0.5 every 8 hours as needed O2 sats 97 to 98% on 2 L of oxygen Closely monitor -- Hypertension/moderate control Status: Acute Continue current antihypertensives , as needed hydralazine -- DVT prophylaxis Status: Acute Heparin 5000 units subcu every 8 hours for DVT prophylaxis. GI prophylaxis; Pepcid 20 mg p.o. twice daily --full CODE STATUS Closely monitor the patient and adjust management as needed Follow consultants and recommendations PT OT evaluation to treat and for DC needs at discharge Plan of care reviewed with the patient and his nurse History Interval history: I have seen and examined the patient at the bedside this morning during morning rounds Patient's chart and medications reviewed, patient complains of shortness of breath and chest congestion and cough Alert awake oriented, not in acute distress Patient reports he has home oxygen Productive cough, no hemoptysis Vital signs noted Saturating well on 2 L of nasal cannula oxygen Hospitalist Physical - Constitutional Vitals: Temp Pulse Resp BP Pulse Ox 97.4 F L 110 H 18 201/117 93 05/24/21 11:06 05/24/21 18:02 05/24/21 16:50 08/13/21 18:02 05/24/21 16:50 General appearance: Present: mild distress, well-nourished, other (On 2 L nasal cannula oxygen) - EENT Eyes: Present: PERRL, EOM intact - Neck Neck: Present: supple, normal ROM - Respiratory Respiratory effort: normal Respiratory: bilateral: diminished, rhonchi, wheezing, negative: rales - Cardiovascular Rhythm: regular Heart Sounds: Present: S1 & S2 - Extremities Extremities: no ischemia, No edema - Abdominal General gastrointestinal: soft, non-tender, non-distended, normal bowel sounds - Integumentary Integumentary: Present: clear, warm - Psychiatric Psychiatric: appropriate mood/affect, cooperative - Neurologic Neurologic: CNII-XII intact, moves all extremities HEART Score - HEART Score EKG: Non-specific Age: > 65 Risk factors: 1-2 risk factors Troponin: Troponin T 0.023 ng/mL (0.00-0.029) 05/24/21 04:58 Troponin: 1-3x normal limit Results - Labs CBC & Chem 7: 05/24/21 03:01 05/24/21 03:01 Labs: Laboratory Last Values WBC 5.9 K/mm3 (4.5-11.0) 05/24/21 03:01 RBC 4.23 M/mm3 (3.65-5.03) 05/24/21 03:01 Hgb 12.0 gm/dl (11.8-15.2) 05/24/21 03:01 Hct 37.4 % (35.5-45.6) 05/24/21 03:01 MCV 89 fl (84-94) 05/24/21 03:01 MCH 28 pg (28-32) 05/24/21 03:01 MCHC 32 % (32-34) 05/24/21 03:01 RDW 19.4 % (13.2-15.2) H 05/24/21 03:01 Plt Count 204 K/mm3 (140-440) 05/24/21 03:01 Lymph % (Auto) 5.2 % (13.4-35.0) L 05/24/21 03:01 [place] % (Auto) 6.6 % (0.0-7.3) 05/24/21 03:01 Eos % (Auto) 0.0 % (0.0-4.3) 05/24/21 03:01 Baso % (Auto) 0.1 % (0.0-1.8) 05/24/21 03:01 Lymph # (Auto) 0.3 K/mm3 (1.2-5.4) L 05/24/21 03:01 [place] # (Auto) 0.4 K/mm3 (0.0-0.8) 05/24/21 03:01 Eos # (Auto) 0.0 K/mm3 (0.0-0.4) 05/24/21 03:01 Baso # (Auto) 0.0 K/mm3 (0.0-0.1) 05/24/21 03:01 Add Manual Diff Complete 05/23/21 17:37 Total Counted 100 05/23/21 17:37 Seg Neutrophils % 88.1 % (40.0-70.0) H 05/24/21 03:01 Seg Neuts % (Manual) 86.0 % (40.0-70.0) H 05/23/21 17:37 Lymphocytes % (Manual) 10.0 % (13.4-35.0) L 05/23/21 17:37 Monocytes % (Manual) 4.0 % (0.0-7.3) 05/23/21 17:37 Nucleated RBC % Not Reportable 05/23/21 17:37 Seg Neutrophils # 5.2 K/mm3 (1.8-7.7) 05/24/21 03:01 Seg Neutrophils # Man 5.6 K/mm3 (1.8-7.7) 05/23/21 17:37 Band Neutrophils # 0.0 K/mm3 05/23/21 17:37 Lymphocytes # (Manual) 0.7 K/mm3 (1.2-5.4) L 05/23/21 17:37 Abs React Lymphs (Man) 0.0 K/mm3 05/23/21 17:37 Monocytes # (Manual) 0.3 K/mm3 (0.0-0.8) 05/23/21 17:37 Eosinophils # (Manual) 0.0 K/mm3 (0.0-0.4) 05/23/21 17:37 Basophils # (Manual) 0.0 K/mm3 (0.0-0.1) 05/23/21 17:37 Metamyelocytes # 0.0 K/mm3 05/23/21 17:37 Myelocytes # 0.0 K/mm3 05/23/21 17:37 Promyelocytes # 0.0 K/mm3 05/23/21 17:37 Blast Cells # 0.0 K/mm3 05/23/21 17:37 WBC Morphology Not Reportable 05/23/21 17:37 Hypersegmented Neuts Not Reportable 05/23/21 17:37 Hyposegmented Neuts Not Reportable 05/23/21 17:37 Hypogranular Neuts Not Reportable 05/23/21 17:37 Smudge Cells Not Reportable 05/23/21 17:37 Toxic Granulation Not Reportable 05/23/21 17:37 Toxic Vacuolation Not Reportable 05/23/21 17:37 Dohle Bodies Not Reportable 05/23/21 17:37 Pelger-Huet Anomaly Not Reportable 05/23/21 17:37 Fabricio Rods Not Reportable 05/23/21 17:37 Platelet Estimate Not Reportable 05/23/21 17:37 Clumped Platelets Not Reportable 05/23/21 17:37 Plt Clumps, EDTA Not Reportable 05/23/21 17:37 Large Platelets Not Reportable 05/23/21 17:37 Giant Platelets Not Reportable 05/23/21 17:37 Platelet Satelliting Not Reportable 05/23/21 17:37 Plt Morphology Comment Not Reportable 05/23/21 17:37 RBC Morphology Normal 05/23/21 17:37 Dimorphic RBCs Not Reportable 05/23/21 17:37 Polychromasia Not Reportable 05/23/21 17:37 Hypochromasia Not Reportable 05/23/21 17:37 Poikilocytosis Not Reportable 05/23/21 17:37 Anisocytosis Not Reportable 05/23/21 17:37 Microcytosis Not Reportable 05/23/21 17:37 Macrocytosis Not Reportable 05/23/21 17:37 Spherocytes Not Reportable 05/23/21 17:37 Pappenheimer Bodies Not Reportable 05/23/21 17:37 Sickle Cells Not Reportable 05/23/21 17:37 Target Cells Not Reportable 05/23/21 17:37 Tear Drop Cells Not Reportable 05/23/21 17:37 Ovalocytes Not Reportable 05/23/21 17:37 Helmet Cells Not Reportable 05/23/21 17:37 [place] Bodies Not Reportable 05/23/21 17:37 [place] Rings Not Reportable 05/23/21 17:37 [place] Cells Not Reportable 05/23/21 17:37 Bite Cells Not Reportable 05/23/21 17:37 Crenated Cell Not Reportable 05/23/21 17:37 Elliptocytes Not Reportable 05/23/21 17:37 Acanthocytes (Spur) Not Reportable 05/23/21 17:37 Rouleaux Not Reportable 05/23/21 17:37 Hemoglobin C Crystals Not Reportable 05/23/21 17:37 Schistocytes Not Reportable 05/23/21 17:37 Malaria parasites Not Reportable 05/23/21 17:37 Julio Cesar Bodies Not Reportable 05/23/21 17:37 Hem Pathologist Commnt No 05/23/21 17:37 PT 20.2 Sec. (12.2-14.9) H 05/23/21 17:37 INR 1.66 (0.87-1.13) H 05/23/21 17:37 APTT 32.9 Sec. (24.2-36.6) 05/23/21 17:37 Sodium 138 mmol/L (137-145) 05/24/21 03:01 Potassium 4.0 mmol/L (3.6-5.0) 05/24/21 03:01 Chloride 99.2 mmol/L (98-107) 05/24/21 03:01 Carbon Dioxide 27 mmol/L (22-30) 05/24/21 03:01 Anion Gap 16 mmol/L 05/24/21 03:01 BUN 16 mg/dL (9-20) 05/24/21 03:01 Creatinine 1.6 mg/dL (0.8-1.3) H 05/24/21 03:01 Estimated GFR 42 ml/min 05/24/21 03:01 BUN/Creatinine Ratio 10 % 05/24/21 03:01 Glucose 199 mg/dL (75-100) H 05/24/21 03:01 POC Glucose 104 mg/dL (70-105) 05/24/21 19:21 Lactic Acid 4.90 mmol/L (0.7-2.0) H* 05/24/21 03:01 Calcium 8.2 mg/dL (8.4-10.2) L 05/24/21 03:01 Total Bilirubin 0.60 mg/dL (0.1-1.2) 05/23/21 17:37 AST 22 units/L (5-40) 05/23/21 17:37 ALT 10 units/L (7-56) 05/23/21 17:37 Alkaline Phosphatase 77 units/L (35-129) 05/23/21 17:37 Troponin T 0.023 ng/mL (0.00-0.029) 05/24/21 04:58 NT-Pro-B Natriuret Pep 3136 pg/mL (0-900) H 05/23/21 17:37 Total Protein 7.9 g/dL (6.3-8.2) 05/23/21 17:37 Albumin 3.9 g/dL (3.9-5) 05/23/21 17:37 Albumin/Globulin Ratio 1.0 % 05/23/21 17:37 Triglycerides 93 mg/dL (2-149) 05/23/21 17:37 Cholesterol 140 mg/dL (50-199) 05/23/21 17:37 LDL Cholesterol Direct 63 mg/dL (50-130) 05/23/21 17:37 HDL Cholesterol 67 mg/dL (40-59) H 05/23/21 17:37 Cholesterol/HDL Ratio 2.08 % 05/23/21 17:37 Microbiology: Microbiology 05/23/21 17:37 Peripheral/Venous Blood Culture - Preliminary NO GROWTH AFTER 24 HOURS 05/23/21 17:37 Peripheral/Venous Blood Culture - Preliminary NO GROWTH AFTER 24 HOURS Santos/IV: Voiding Method Urinal Active Medications - Current Medications Current Medications: Generic Name Dose Route Start Last Admin Trade Name Freq PRN Reason Stop Dose Admin Acetaminophen 650 mg 05/23/21 23:17 Acetaminophen 325 Mg Tab PO Q6H PRN Pain, Mild (1-3) Albuterol 2.5 mg 05/23/21 23:17 Albuterol 2.5 Mg/3 Ml Nebu IH Q4HRT PRN Shortness Of Breath Albuterol/Ipratropium 1 ampul 05/24/21 02:00 05/24/21 14:16 Ipratropium/Albuterol Sulfate 3 Ml Ampul.Neb IH 1 ampul Q6HRT THERON Administration Alprazolam 0.5 mg 05/24/21 18:53 Alprazolam 0.5 Mg Tab PO Q8H PRN Anxiety Aspirin 325 mg 05/24/21 10:00 05/24/21 11:17 Aspirin 325 Mg Tab PO Not Given QDAY [facility] Atorvastatin Calcium 40 mg 05/24/21 22:00 Atorvastatin 40 Mg Tab PO QHS THERON Budesonide 0.5 mg 05/24/21 20:00 Budesonide 0.5 Mg/2 Ml Nebu IH Q12HRT THERON Cetirizine HCl 10 mg 05/24/21 12:00 05/24/21 11:48 Cetirizine 10 Mg Tab PO 10 mg QDAY THERON Administration Famotidine 20 mg 05/24/21 11:00 05/24/21 11:17 Famotidine 20 Mg Tab PO 20 mg DAILY THERON Administration Furosemide 40 mg 05/24/21 06:00 05/24/21 17:23 Furosemide 40 Mg/4 Ml Inj IV 40 mg BID@0600,1800 [facility] Administration Heparin Sodium (Porcine) 5,000 unit 05/24/21 06:00 05/24/21 14:59 Heparin 5,000 Unit/1 Ml Vial SUB-Q 5,000 unit Q8HR THERON Administration Hydralazine HCl 10 mg 05/23/21 23:30 05/24/21 18:02 Hydralazine 20 Mg/1 Ml Inj IV 10 mg Q6H PRN Administration SBP >/=165; DBP >/=100 Hydromorphone HCl 0.5 mg 05/23/21 23:17 05/24/21 16:34 Hydromorphone 1 Mg/1 Ml Inj IV 0.5 mg Q3H PRN Administration Pain , Severe (7-10) Ceftriaxone Sodium 1 gm in 50 mls @ 100 mls/hr 05/24/21 01:00 05/24/21 04:20 Rocephin/Ns 1 Gm/50 Ml IV 100 mls/hr Q24H [facility]ERON Administration Protocol Methylprednisolone Sodium Succinate 60 mg 05/24/21 20:00 Methylprednisolone Sod Succinate 125 Mg/2 Ml Inj IV Q8H [facility] Nitroglycerin 0.4 mg 05/23/21 23:17 Nitroglycerin 0.4 Mg Tab Subl SL Q5M PRN Chest Pain Ondansetron HCl 4 mg 05/23/21 23:17 Ondansetron 4 Mg/2 Ml Inj IV Q8H PRN Nausea And Vomiting Oxycodone/Acetaminophen 1 tab 05/23/21 23:17 05/24/21 04:18 Oxycodone /Acetaminophen 5-325mg Tab PO 1 tab Q6H PRN Administration Pain, Moderate (4-6) Pseudoephedrine/Acetam/Chlorphenir 5 ml 05/24/21 14:54 05/24/21 14:59 Guaifenesin/Codeine 100-10mg Oral Liqd 5 Ml PO 5 ml Q4H PRN Administration Cough Ropinirole HCl 1 mg 05/24/21 22:00 Ropinirole 1 Mg Tab PO QHS THERON Sodium Chloride 10 ml 05/24/21 10:00 05/24/21 11:17 Sodium Chloride 0.9% 10 Ml Flush Syringe IV 10 ml BID THERON Administration Sodium Chloride 10 ml 05/23/21 23:17 Sodium Chloride 0.9% 10 Ml Flush Syringe IV PRN PRN LINE FLUSH Tramadol HCl 50 mg 05/23/21 23:17 Tramadol 50 Mg Tab PO Q6H PRN Pain, Moderate (4-6)
[2021-05-24] MEDS ORDERED: IPRATROPIUM/ALBUTEROL SULFATE 3 ML AMPUL.NEB IH PRN (19:44)
[2021-05-24] MEDS ORDERED: LORazepam 2 MG/ML VIAL IV ONE (19:45)
[2021-05-24] MEDS ORDERED: LORazepam 2 MG/ML VIAL IV PRN ×3 (19:53→22:59)
[2021-05-24] MEDS ORDERED: methylPREDNISolone Sod Succinate 125 MG/2 ML INJ IV SCH (20:00)
[2021-05-24] MEDS ORDERED: WATER IV SCH (20:00)
[2021-05-24] MEDS ORDERED: ALBUTEROL 2.5 MG/3 ML NEBU IH PRN (20:00)
[2021-05-24] MEDS ORDERED: DEXTROSE 5% IV SCH (20:00)
[2021-05-24] MEDS ORDERED: DILTIAZEM IV SCH (20:00)
[2021-05-24] MEDS ORDERED: dilTIAZem 25 MG/5 ML INJ IV ONE (21:00)
[2021-05-24] MEDS ORDERED: dilTIAZem/D5W 100 MG/100 ML BAG IV SCH (21:00)
[2021-05-24] MEDS: LORazepam 2 MG/ML VIAL IV PRN (21:10)
[2021-05-24] MEDS: BUDESONIDE 0.5 MG/2 ML NEBU IH SCH (21:34)
[2021-05-24] MEDS: LEVALBUTEROL 0.63 MG/3 ML NEBU IH PRN (21:35)
--- NOTE | 2021-05-24 23:09 | Event Note ---
Date: 05/24/21 Code met was called around 19 hours Patient was very short of breath and hypertensive with blood pressure of 200/110 and very restless and agitated. Patient was wheezing . Patient was tachycardic and heart rate of 170s. Patient was IV hydralazine IV Cardizem and started on Cardizem drip. Patient transferred to ICU. Patient on BiPAP If decompensates patient to be intubated Dr. Gong advised about admission to ICU at 23 hours
[2021-05-25] MEDS: LORazepam 2 MG/ML VIAL IV PRN (00:34)
[2021-05-25] MEDS: hydrALAZINE 25 MG TAB PO SCH ×4 (01:42→21:14)
[2021-05-25] MEDS: rOPINIRole 1 MG TAB PO SCH ×2 (01:43→21:18)
[2021-05-25] MEDS: cefTRIAXone/NS 1 GM/50 ML 1 GM/50 ML BAG IV SCH (01:52)
[2021-05-25] MEDS: HEPARIN 5,000 UNIT/1 ML VIAL SUB-Q SCH ×4 (01:53→21:07)
--- NOTE | 2021-05-25 02:21 | Consultation ---
History of Present Illness Consult date: 05/25/21 Requesting physician: ALEXANDRIA ROE Reason for consult: hypoxemia History of present illness: 75 y/o male admitted on the floor with CHF and COPD exacerbation had code met called at 1900 today. IMS responded and felt patient was volume overloaded, tachycardic and hypertensive. All of these things per IMS secondary to ETOH withdrawal. Given sedatives and placed on bipap. Transferred to ICU for further monitoring. When I was called ordered precedex therapy to help with agitation and potential withdrawal symptoms. patient is asleep, on precedex and bipap, minimal settings with good sats. Got lasix earlier as well with good output. No further history able to be obtained. Past History Past Medical History: COPD, hypertension Medications and Allergies Allergies Allergy/AdvReac Type Severity Reaction Status Date / Time No Known Allergies Allergy Verified 07/24/20 15:58 Home Medications Medication Instructions Recorded Confirmed Last Taken Type No Known Home Medications [No 02/04/20 02/04/20 Unknown History Reported Home Medications] Amoxicillin/Potassium Clav 1 each PO BID #10 tablet 03/17/21 Unknown Rx [Augmentin 875-125 Tablet] Active Meds: Active Medications Acetaminophen (Acetaminophen 325 Mg Tab) 650 mg PO Q6H PRN PRN Reason: Pain, Mild (1-3) Albuterol/Ipratropium (Ipratropium/Albuterol Sulfate 3 Ml Ampul.Neb) 1 ampul IH QIDRT [facility] Last Admin: 05/24/21 22:34 Dose: Not Given Documented by: Alprazolam (Alprazolam 0.5 Mg Tab) 0.5 mg PO Q8H PRN PRN Reason: Anxiety Aspirin (Aspirin 325 Mg Tab) 325 mg PO QDAY [facility] Last Admin: 05/24/21 11:17 Dose: Not Given Documented by: Atorvastatin Calcium (Atorvastatin 40 Mg Tab) 40 mg PO QHS [facility] Last Admin: 05/25/21 01:43 Dose: Not Given Documented by: Budesonide (Budesonide 0.5 Mg/2 Ml Nebu) 0.5 mg IH Q12HRT [facility] Last Admin: 05/24/21 21:34 Dose: 0.5 mg Documented by: Cetirizine HCl (Cetirizine 10 Mg Tab) 10 mg PO QDAY [facility] Last Admin: 05/24/21 11:48 Dose: 10 mg Documented by: Famotidine (Famotidine 20 Mg Tab) 20 mg PO DAILY [facility] Last Admin: 05/24/21 11:17 Dose: 20 mg Documented by: Furosemide (Furosemide 40 Mg/4 Ml Inj) 40 mg IV BID@0600,1800 [facility] Last Admin: 05/24/21 17:23 Dose: 40 mg Documented by: Heparin Sodium (Porcine) (Heparin 5,000 Unit/1 Ml Vial) 5,000 unit SUB-Q Q8HR [facility] Last Admin: 05/25/21 01:53 Dose: Not Given Documented by: Hydralazine HCl (Hydralazine 20 Mg/1 Ml Inj) 10 mg IV Q6H PRN PRN Reason: SBP >/=165; DBP >/=100 Last Admin: 05/24/21 18:02 Dose: 10 mg Documented by: Hydralazine HCl (Hydralazine 25 Mg Tab) 50 mg PO Q8HR [facility] Last Admin: 05/25/21 01:42 Dose: Not Given Documented by: Hydromorphone HCl (Hydromorphone 1 Mg/1 Ml Inj) 0.5 mg IV Q3H PRN PRN Reason: Pain , Severe (7-10) Last Admin: 05/24/21 16:34 Dose: 0.5 mg Documented by: Ceftriaxone Sodium (Rocephin/Ns 1 Gm/50 Ml) 1 gm in 50 mls @ 100 mls/hr IV Q24H THERON; Protocol Last Admin: 05/25/21 01:52 Dose: 100 mls/hr Documented by: Diltiazem HCl (Cardizem/D5w 100mg/100ml) 100 mg in 100 mls @ 5 mls/hr IV TITR THERON; Protocol Dexmedetomidine HCl 400 mcg/ (Sodium Chloride) 104 mls @ 3.892 mls/hr IV TITRATE THERON; Protocol Last Admin: 05/25/21 02:06 Dose: 0.2 mcg/kg/hr, 3.892 mls/hr Documented by: Dexmedetomidine HCl 400 mcg/ (Sodium Chloride) 104 mls @ 3.892 mls/hr IV TITRATE THERON; Protocol Levalbuterol HCl (Levalbuterol 0.63 Mg/3 Ml Nebu) 0.63 mg IH Q6H PRN PRN Reason: Shortness Of Breath Last Admin: 05/24/21 21:35 Dose: 0.63 mg Documented by: Lorazepam (Lorazepam 2 Mg/Ml Vial) 1 mg IV Q1H PRN PRN Reason: CIWA-Ar 8-15 Lorazepam (Lorazepam 2 Mg/Ml Vial) 2 mg IV Q1H PRN PRN Reason: CIWA-Ar 8-15 Last Admin: 05/25/21 00:34 Dose: 2 mg Documented by: Lorazepam (Lorazepam 2 Mg/Ml Vial) 4 mg IV Q1H PRN PRN Reason: CIWA-Ar 16-25 Lorazepam (Lorazepam 2 Mg/Ml Vial) 4 mg IV Q15MIN PRN PRN Reason: CIWA-Ar >25 Last Admin: 05/25/21 01:30 Dose: 4 mg Documented by: Methylprednisolone Sodium Succinate (Methylprednisolone Sod Succinate 125 Mg/2 Ml Inj) 125 mg IV Q8H [facility] Last Admin: 05/24/21 19:20 Dose: 125 mg Documented by: Nitroglycerin (Nitroglycerin 0.4 Mg Tab Subl) 0.4 mg SL Q5M PRN PRN Reason: Chest Pain Ondansetron HCl (Ondansetron 4 Mg/2 Ml Inj) 4 mg IV Q8H PRN PRN Reason: Nausea And Vomiting Oxycodone/Acetaminophen (Oxycodone /Acetaminophen 5-325mg Tab) 1 tab PO Q6H PRN PRN Reason: Pain, Moderate (4-6) Last Admin: 05/24/21 04:18 Dose: 1 tab Documented by: Pseudoephedrine/Acetam/Chlorphenir (Guaifenesin/Codeine 100-10mg Oral Liqd 5 Ml) 5 ml PO Q4H PRN PRN Reason: Cough Last Admin: 05/24/21 14:59 Dose: 5 ml Documented by: Ropinirole HCl (Ropinirole 1 Mg Tab) 1 mg PO QHS [facility] Last Admin: 05/25/21 01:43 Dose: Not Given Documented by: Sodium Chloride (Sodium Chloride 0.9% 10 Ml Flush Syringe) 10 ml IV BID [facility] Last Admin: 05/24/21 22:00 Dose: 10 ml Documented by: Sodium Chloride (Sodium Chloride 0.9% 10 Ml Flush Syringe) 10 ml IV PRN PRN PRN Reason: LINE FLUSH Tramadol HCl (Tramadol 50 Mg Tab) 50 mg PO Q6H PRN PRN Reason: Pain, Moderate (4-6) Review of Systems ROS unobtainable: due to mental status Physical Examination Vital signs: Vital Signs Pulse Resp BP Pulse Ox 92 H 21 197/106 98 05/23/21 13:37 05/23/21 13:37 05/23/21 13:37 05/23/21 13:37 General appearance: no acute distress, lethargic, appears uncomfortable Ascultation: Bilateral: rales Percussion: Bilateral: not dull Cardiovascular: other (sinus tach) Gastrointestinal: normoactive bowel sounds, soft Results - Laboratory Findings CBC and BMP: 05/24/21 03:01 05/24/21 03:01 ABG ABG pH 7.343 (7.320-7.450) 05/24/21 20:48 POC ABG pCO2 42.9 mmHg (32.0-48.0) 05/24/21 20:48 POC ABG pO2 136.5 mmHg (83-108) H 05/24/21 20:48 POC ABG HCO3 22.8 05/24/21 20:48 ABG O2 Saturation 98.6 (0-100) 05/24/21 20:48 PT/INR, D-dimer PT 20.2 Sec. (12.2-14.9) H 05/23/21 17:37 INR 1.66 (0.87-1.13) H 05/23/21 17:37 Abnormal lab findings: Abnormal Labs 05/23/21 05/23/21 05/23/21 17:37 17:37 17:37 RDW 19.3 H Lymph % (Auto) Lymph # (Auto) Seg Neutrophils % Seg Neuts % (Manual) 86.0 H Lymphocytes % (Manual) 10.0 L Lymphocytes # (Manual) 0.7 L PT 20.2 H INR 1.66 H POC ABG pO2 ABG Sodium ABG Glucose Creatinine Glucose 120 H Lactic Acid Calcium Troponin T 0.030 H NT-Pro-B Natriuret Pep HDL Cholesterol 67 H Arterial Blood Glucose Arterial Blood Ionized Calcium 05/23/21 05/23/21 05/23/21 17:37 20:01 23:17 RDW Lymph % (Auto) Lymph # (Auto) Seg Neutrophils % Seg Neuts % (Manual) Lymphocytes % (Manual) Lymphocytes # (Manual) PT INR POC ABG pO2 ABG Sodium ABG Glucose Creatinine Glucose Lactic Acid 7.00 H* Calcium Troponin T 0.031 H NT-Pro-B Natriuret Pep 3136 H HDL Cholesterol Arterial Blood Glucose Arterial Blood Ionized Calcium 05/23/21 05/24/21 05/24/21 23:29 03:01 03:01 RDW 19.4 H Lymph % (Auto) 5.2 L Lymph # (Auto) 0.3 L Seg Neutrophils % 88.1 H Seg Neuts % (Manual) Lymphocytes % (Manual) Lymphocytes # (Manual) PT INR POC ABG pO2 ABG Sodium ABG Glucose Creatinine 1.7 H D Glucose 342 H Lactic Acid 4.90 H* Calcium Troponin T NT-Pro-B Natriuret Pep HDL Cholesterol Arterial Blood Glucose Arterial Blood Ionized Calcium 05/24/21 05/24/21 03:01 20:48 RDW Lymph % (Auto) Lymph # (Auto) Seg Neutrophils % Seg Neuts % (Manual) Lymphocytes % (Manual) Lymphocytes # (Manual) PT INR POC ABG pO2 136.5 H ABG Sodium 130.6 L ABG Glucose 141 H Creatinine 1.6 H Glucose 199 H Lactic Acid Calcium 8.2 L Troponin T NT-Pro-B Natriuret Pep HDL Cholesterol Arterial Blood Glucose 141 H Arterial Blood Ionized Calcium 4.0 L - Diagnostic Findings Chest x-ray: other (no recent imaging taken since MET called.) Assessment and Plan 75 y/o male with acute on chronic respiratory failure per IMS note secondary to CHF and COPD now with worsening of both thought secondary to ETOH withdrawal 1. Continue precedex for sedation and possible withdrawal symptoms 2. Repeat CXR in am 3. Agree with diuresis, suggest another dose of lasix in am 4. Rate control per cards. 5. MOnitor electrolytes, keep K at 4 and Mag at 2 6. Wean Bipap as tolerated given current clinical state and oxygen requirements 7. Guarded prognosis. If able to be weaned from bipap and weaned off precedex, can likely go back to floor with CIWA protocol if scores will allow this once off drip. CCT 31 minutes.
--- NOTE | 2021-05-25 02:28 | XRay Report ---
ABDOMEN 1 VIEW(S) 05/25/2021 1:14 AM INDICATION / CLINICAL INFORMATION: NGT. COMPARISON: None available. FINDINGS: The tip of an esophagogastric tube projects over the distal thoracic esophagus and should be advanced another 10 to 15 cm into stomach. Signer Name: Benjamín Sher MD Signed: 05/25/2021 2:24 AM Workstation Name: [id number]
[2021-05-25 03:16] LABS: Hemoglobin 11.6 gm/dl (11.8-15.2); Mean Corpuscular HGB Conc 32 % (32-34); Mean Corpuscular Volume 87 fl (84-94); Platelet Count 182 K/mm3 (140-440); Red Blood Count 4.12 M/mm3 (3.65-5.03)
[2021-05-25 03:35] LABS: Albumin 3.9 g/dL (3.9-5); Calcium 8.2 mg/dL (8.4-10.2)
[2021-05-25] MEDS: methylPREDNISolone Sod Succinate 125 MG/2 ML INJ IV SCH ×3 (03:51→21:13)
[2021-05-25] MEDS: FUROSEMIDE 40 MG/4 ML INJ IV SCH ×2 (06:21→18:26)
[2021-05-25 06:36] LABS: Anisocytosis 1+; Platelet Estimate Consistent w Auto; Total Cells Counted 100
[2021-05-25] MEDS: IPRATROPIUM/ALBUTEROL SULFATE 3 ML AMPUL.NEB IH SCH ×4 (07:36→19:15)
[2021-05-25] MEDS: BUDESONIDE 0.5 MG/2 ML NEBU IH SCH ×2 (07:36→19:15)
[2021-05-25] MEDS ORDERED: INSULIN REGULAR, HUMAN 100 UNITS/1 ML SUB-Q PRN (09:00)
[2021-05-25] MEDS ORDERED: DEXTROSE 50% IN WATER (25GM) 50 ML SYRINGE IV PRN (09:30)
[2021-05-25] MEDS: CETIRIZINE 10 MG TAB PO SCH (10:28)
[2021-05-25] MEDS: ASPIRIN 325 MG TAB PO SCH (10:28)
[2021-05-25] MEDS: FAMOTIDINE 20 MG TAB PO SCH (10:28)
--- NOTE | 2021-05-25 16:52 | Progress Note ---
Assessment and Plan Assessment and plan: This is an 75-year-old female with COPD on home oxygen of 2.5 L and HTN who was admitted for COPD exacerbation,, acute exacerbation of chronic CHF and to rule out ACS Neuro: Generalized anxiety, ? EtOH abuse -Patient currently sedated on Precedex drip -Patient awakens to verbal and noxious stimuli however is unable to sustain a conversation. -RN instructed to wean Precedex -Avoid delirium -Reorientation as needed -CIWA protocol -Requip -As needed Xanax Cardio: r/o ACS, acute on chronic exacerbation of CHF, NSTEMI -Cardiology consulted, appreciate recommendations -Echocardiogram completed on 05/23 shows LVEF of 55 to 60%, mild LVH, normal biventricular function-see report -Admit proBNP 3136 -Trended cardiac enzymes (0.030, 0.031, 0.023) -Aspirin, Lipitor, Lasix -Hydralazine, as needed hydralazine, as needed nitroglycerin -Blood pressure monitoring per protocol -S/p Cardizem drip Respiratory: Acute on chronic hypoxic respiratory failure, COPD exacerbation -S/p BiPAP therapy currently on nasal cannula -SPO2 monitor per protocol -Pulmonary hygiene -CCM consulted, appreciate recommendations -As needed Robitussin and cefazolin GI: NAD -Cardiac diet -BR: senna -PPI : Acute kidney injury, hyponatremia, hypochloremia -Strict intake and output -Patient is on Lasix; likely due to overdiuresis -Trend BMP -Urine lites pending -24 hours -539.83 ml -Santos -Nephrology consult if needed Endo: NAD -Avoid hypoglycemia -BG q6 Heme: NAD -Heparin subq -SCDs to BLE -Trend CBC -Transfuse for hbg <7 ID: NAD -Trend CBC -Monitor for sx of infection The high probability of a clinically significant, sudden or life threatening deterioration of the [neuro/resp] system(s) required my full and direct attention, intervention and personal management. The aggregate critical care time was [60] minutes. This time is in addition to time spent performing reported procedures but includes the following: [x] Data Review and interpretation [x] Patient assessment and monitoring of vital signs [x] Documentation [x] Medication orders and management Total Time Spent with Patient (Minutes): 60 History Interval history: This is a 75-year-old male with COPD on home oxygen of 2.5 L, nicotine abuse and HTN who presents to the emergency department 05/23 because of mild orthopnea and nagging cough for 1 day and substernal chest pain described as tightness in nature. Work-up in the emergency department revealed proBNP of 3136, troponin 0 0.03 and CXR showed bibasilar segmental atelectasis/scarring with patchy parenchymal disease in the right lower lung base. Patient was admitted to the hospitalist service with acute exacerbation of chronic congestive heart failure, rule out ACS, COPD exacerbation consults to cardiology and eventually pulmonology was consulted due to acute respiratory distress. 05/24: Was on 2 L nasal cannula and awake, alert and oriented without any acute distress in the a.m. when examined by the hospitalist however around 1900 code met was called as the patient was very short of breath and hypertensive with a blood pressure of 200/110, tachycardia into the 170s and very agitated and restless. He was also wheezing. Patient was given IV hydralazine, IV Cardizem and started on a Cardizem drip and transferred to the ICU on BiPAP therapy. CCM was consulted. 05/25: Patient weaned to NC from BiPAP this morning. Weaning Precedex as tolerated. AM labs Hospitalist Physical - Constitutional Vitals: Temp Pulse Resp BP Pulse Ox 97.6 F 74 23 129/78 96 05/25/21 08:00 05/25/21 14:17 05/25/21 13:11 05/25/21 14:17 05/25/21 13:11 General appearance: Present: mild distress, well-nourished, other (On 2 L nasal cannula oxygen) HEART Score - HEART Score EKG: Non-specific Age: > 65 Risk factors: 1-2 risk factors Troponin: Troponin T 0.023 ng/mL (0.00-0.029) 05/24/21 04:58 Troponin: 1-3x normal limit Results - Labs CBC & Chem 7: 05/25/21 02:45 05/25/21 02:45 Labs: Laboratory Last Values WBC 10.0 K/mm3 (4.5-11.0) 05/25/21 02:45 RBC 4.12 M/mm3 (3.65-5.03) 05/25/21 02:45 Hgb 11.6 gm/dl (11.8-15.2) L 05/25/21 02:45 Hct 36.0 % (35.5-45.6) 05/25/21 02:45 MCV 87 fl (84-94) 05/25/21 02:45 MCH 28 pg (28-32) 05/25/21 02:45 MCHC 32 % (32-34) 05/25/21 02:45 RDW 19.0 % (13.2-15.2) H 05/25/21 02:45 Plt Count 182 K/mm3 (140-440) 05/25/21 02:45 Lymph % (Auto) 5.2 % (13.4-35.0) L 05/24/21 03:01 [place] % (Auto) 6.6 % (0.0-7.3) 05/24/21 03:01 Eos % (Auto) 0.0 % (0.0-4.3) 05/24/21 03:01 Baso % (Auto) 0.1 % (0.0-1.8) 05/24/21 03:01 Lymph # (Auto) 0.3 K/mm3 (1.2-5.4) L 05/24/21 03:01 [place] # (Auto) 0.4 K/mm3 (0.0-0.8) 05/24/21 03:01 Eos # (Auto) 0.0 K/mm3 (0.0-0.4) 05/24/21 03:01 Baso # (Auto) 0.0 K/mm3 (0.0-0.1) 05/24/21 03:01 Add Manual Diff Complete 05/25/21 02:45 Total Counted 100 05/25/21 02:45 Seg Neutrophils % Production Machine Computer Operator 05/25/21 02:45 Seg Neuts % (Manual) 95.0 % (40.0-70.0) H 05/25/21 02:45 Lymphocytes % (Manual) 1.0 % (13.4-35.0) L 05/25/21 02:45 Monocytes % (Manual) 4.0 % (0.0-7.3) 05/25/21 02:45 Nucleated RBC % Not Reportable 05/25/21 02:45 Seg Neutrophils # 5.2 K/mm3 (1.8-7.7) 05/24/21 03:01 Seg Neutrophils # Man 9.5 K/mm3 (1.8-7.7) H 05/25/21 02:45 Band Neutrophils # 0.0 K/mm3 05/25/21 02:45 Lymphocytes # (Manual) 0.1 K/mm3 (1.2-5.4) L 05/25/21 02:45 Abs React Lymphs (Man) 0.0 K/mm3 05/25/21 02:45 Monocytes # (Manual) 0.4 K/mm3 (0.0-0.8) 05/25/21 02:45 Eosinophils # (Manual) 0.0 K/mm3 (0.0-0.4) 05/25/21 02:45 Basophils # (Manual) 0.0 K/mm3 (0.0-0.1) 05/25/21 02:45 Metamyelocytes # 0.0 K/mm3 05/25/21 02:45 Myelocytes # 0.0 K/mm3 05/25/21 02:45 Promyelocytes # 0.0 K/mm3 05/25/21 02:45 Blast Cells # 0.0 K/mm3 05/25/21 02:45 WBC Morphology Not Reportable 05/25/21 02:45 Hypersegmented Neuts Not Reportable 05/25/21 02:45 Hyposegmented Neuts Not Reportable 05/25/21 02:45 Hypogranular Neuts Not Reportable 05/25/21 02:45 Smudge Cells Not Reportable 05/25/21 02:45 Toxic Granulation Not Reportable 05/25/21 02:45 Toxic Vacuolation Not Reportable 05/25/21 02:45 Dohle Bodies Not Reportable 05/25/21 02:45 Pelger-Huet Anomaly Not Reportable 05/25/21 02:45 Fabricio Rods Not Reportable 05/25/21 02:45 Platelet Estimate Consistent w auto 05/25/21 02:45 Clumped Platelets Not Reportable 05/25/21 02:45 Plt Clumps, EDTA Not Reportable 05/25/21 02:45 Large Platelets Not Reportable 05/25/21 02:45 Giant Platelets Not Reportable 05/25/21 02:45 Platelet Satelliting Not Reportable 05/25/21 02:45 Plt Morphology Comment Not Reportable 05/25/21 02:45 RBC Morphology Not Reportable 05/25/21 02:45 Dimorphic RBCs Not Reportable 05/25/21 02:45 Polychromasia Not Reportable 05/25/21 02:45 Hypochromasia Not Reportable 05/25/21 02:45 Poikilocytosis Not Reportable 05/25/21 02:45 Anisocytosis 1+ 05/25/21 02:45 Microcytosis Not Reportable 05/25/21 02:45 Macrocytosis Not Reportable 05/25/21 02:45 Spherocytes Not Reportable 05/25/21 02:45 Pappenheimer Bodies Not Reportable 05/25/21 02:45 Sickle Cells Not Reportable 05/25/21 02:45 Target Cells Not Reportable 05/25/21 02:45 Tear Drop Cells Not Reportable 05/25/21 02:45 Ovalocytes Not Reportable 05/25/21 02:45 Helmet Cells Not Reportable 05/25/21 02:45 [place] Bodies Not Reportable 05/25/21 02:45 [place] Rings Not Reportable 05/25/21 02:45 [place] Cells Not Reportable 05/25/21 02:45 Bite Cells Not Reportable 05/25/21 02:45 Crenated Cell Not Reportable 05/25/21 02:45 Elliptocytes Not Reportable 05/25/21 02:45 Acanthocytes (Spur) Not Reportable 05/25/21 02:45 Rouleaux Not Reportable 05/25/21 02:45 Hemoglobin C Crystals Not Reportable 05/25/21 02:45 Schistocytes Not Reportable 05/25/21 02:45 Malaria parasites Not Reportable 05/25/21 02:45 Julio Cesar Bodies Not Reportable 05/25/21 02:45 Hem Pathologist Commnt No 05/25/21 02:45 PT 20.2 Sec. (12.2-14.9) H 05/23/21 17:37 INR 1.66 (0.87-1.13) H 05/23/21 17:37 APTT 32.9 Sec. (24.2-36.6) 05/23/21 17:37 ABG pH 7.343 (7.320-7.450) 05/24/21 20:48 POC ABG pCO2 42.9 mmHg (32.0-48.0) 05/24/21 20:48 POC ABG pO2 136.5 mmHg (83-108) H 05/24/21 20:48 POC ABG HCO3 22.8 05/24/21 20:48 ABG O2 Saturation 98.6 (0-100) 05/24/21 20:48 POC ABG Base Excess -2.9 05/24/21 20:48 ABG Hemoglobin 13.0 (12.0-17.5) 05/24/21 20:48 ABG Oxyhemoglobin 97.6 (94-98) 05/24/21 20:48 ABG Methemoglobin 0.3 (0.0-1.5) 05/24/21 20:48 ABG Sodium 130.6 mmol/L (136.0-145.0) L 05/24/21 20:48 ABG Potassium 4.2 mmol/L (3.40-4.50) 05/24/21 20:48 ABG Chloride 100.0 mmol/L (98-107) 05/24/21 20:48 ABG Glucose 141 mg/dL (65-95) H 05/24/21 20:48 Carboxyhemoglobin 0.7 (0.5-1.5) 05/24/21 20:48 FiO2 % 100.0 05/24/21 20:48 Sodium 135 mmol/L (137-145) L 05/25/21 02:45 Potassium 4.1 mmol/L (3.6-5.0) 05/25/21 02:45 Chloride 92.2 mmol/L (98-107) L 05/25/21 02:45 Carbon Dioxide 29 mmol/L (22-30) 05/25/21 02:45 Anion Gap 18 mmol/L 05/25/21 02:45 BUN 22 mg/dL (9-20) H 05/25/21 02:45 Creatinine 1.7 mg/dL (0.8-1.3) H 05/25/21 02:45 Estimated GFR 39 ml/min 05/25/21 02:45 BUN/Creatinine Ratio 13 % 05/25/21 02:45 Glucose 82 mg/dL (75-100) 05/25/21 02:45 POC Glucose 112 mg/dL (70-105) H 05/25/21 13:18 Lactic Acid 1.50 mmol/L (0.7-2.0) 05/24/21 22:55 Calcium 8.2 mg/dL (8.4-10.2) L 05/25/21 02:45 Magnesium 2.00 mg/dL (1.7-2.3) 05/25/21 02:45 Total Bilirubin 0.50 mg/dL (0.1-1.2) 05/25/21 02:45 AST 36 units/L (5-40) 05/25/21 02:45 ALT 13 units/L (7-56) 05/25/21 02:45 Alkaline Phosphatase 60 units/L (35-129) 05/25/21 02:45 Troponin T 0.023 ng/mL (0.00-0.029) 05/24/21 04:58 NT-Pro-B Natriuret Pep 3136 pg/mL (0-900) H 05/23/21 17:37 Total Protein 6.8 g/dL (6.3-8.2) 05/25/21 02:45 Albumin 3.9 g/dL (3.9-5) 05/25/21 02:45 Albumin/Globulin Ratio 1.3 % 05/25/21 02:45 Triglycerides 93 mg/dL (2-149) 05/23/21 17:37 Cholesterol 140 mg/dL (50-199) 05/23/21 17:37 LDL Cholesterol Direct 63 mg/dL (50-130) 05/23/21 17:37 HDL Cholesterol 67 mg/dL (40-59) H 05/23/21 17:37 Cholesterol/HDL Ratio 2.08 % 05/23/21 17:37 Arterial Blood Glucose 141 mg/dL (65-95) H 05/24/21 20:48 Arterial Blood Ionized Calcium 4.0 mg/dL (4.6-5.3) L 05/24/21 20:48 Microbiology: Microbiology 05/23/21 17:37 Peripheral/Venous Blood Culture - Preliminary NO GROWTH AFTER 24 HOURS 05/23/21 17:37 Peripheral/Venous Blood Culture - Preliminary NO GROWTH AFTER 24 HOURS Santos/IV: Voiding Method Indwelling Catheter Active Medications - Current Medications Current Medications: Generic Name Dose Route Start Last Admin Trade Name Freq PRN Reason Stop Dose Admin Acetaminophen 650 mg 05/23/21 23:17 Acetaminophen 325 Mg Tab PO Q6H PRN Pain, Mild (1-3) Albuterol/Ipratropium 1 ampul 05/25/21 14:00 05/25/21 15:01 Ipratropium/Albuterol Sulfate 3 Ml Ampul.Neb IH Not Given TIDRT THERON Alprazolam 0.5 mg 05/24/21 18:53 Alprazolam 0.5 Mg Tab PO Q8H PRN Anxiety Aspirin 81 mg 05/26/21 10:00 Aspirin 81 Mg Tab Chew PO QDAY THERON Atorvastatin Calcium 40 mg 05/24/21 22:00 05/25/21 01:43 Atorvastatin 40 Mg Tab PO Not Given QHS THERON Budesonide 0.5 mg 05/24/21 20:00 05/25/21 07:36 Budesonide 0.5 Mg/2 Ml Nebu IH 0.5 mg Q12HRT THERON Administration Cetirizine HCl 10 mg 05/24/21 12:00 05/25/21 10:28 Cetirizine 10 Mg Tab PO Not Given QDAY [facility] Dextrose 50 ml 05/25/21 09:30 Dextrose 50% In Water (25gm) 50 Ml Syringe IV Q30MIN PRN Hypoglycemia Protocol Famotidine 20 mg 05/24/21 11:00 05/25/21 10:28 Famotidine 20 Mg Tab PO Not Given DAILY [facility] Furosemide 40 mg 05/24/21 06:00 05/25/21 06:21 Furosemide 40 Mg/4 Ml Inj IV 40 mg BID@0600,1800 [facility] Administration Heparin Sodium (Porcine) 5,000 unit 05/24/21 06:00 05/25/21 14:18 Heparin 5,000 Unit/1 Ml Vial SUB-Q 5,000 unit Q8HR THERON Administration Hydralazine HCl 10 mg 05/23/21 23:30 05/24/21 18:02 Hydralazine 20 Mg/1 Ml Inj IV 10 mg Q6H PRN Administration SBP >/=165; DBP >/=100 Hydralazine HCl 50 mg 05/24/21 20:00 05/25/21 14:17 Hydralazine 25 Mg Tab PO Not Given Q8HR [facility] Hydromorphone HCl 0.5 mg 05/23/21 23:17 05/24/21 16:34 Hydromorphone 1 Mg/1 Ml Inj IV 0.5 mg Q3H PRN Administration Pain , Severe (7-10) Ceftriaxone Sodium 1 gm in 50 mls @ 100 mls/hr 05/24/21 01:00 05/25/21 04:42 Rocephin/Ns 1 Gm/50 Ml IV Infused Q24H THERON Infusion Protocol Diltiazem HCl 100 mg in 100 mls @ 5 mls/hr 05/24/21 21:00 Cardizem/D5w 100mg/100ml IV TITR THERON Protocol 5 MG/HR Dexmedetomidine HCl 400 mcg/ 104 mls @ 4.763 mls/hr 05/25/21 02:00 05/25/21 14:17 Sodium Chloride IV 0.1 mcg/kg/hr TITRATE THERON 2.382 mls/hr Titration Protocol 0.2 MCG/KG/HR Insulin Human Regular 0 units 05/25/21 09:00 Insulin Regular, Human 100 Units/1 Ml SUB-Q Q6H PRN Hyperglycemia Protocol Levalbuterol HCl 0.63 mg 05/24/21 19:52 05/24/21 21:35 Levalbuterol 0.63 Mg/3 Ml Nebu IH 0.63 mg Q6H PRN Administration Shortness Of Breath Lorazepam 1 mg 05/24/21 19:53 Lorazepam 2 Mg/Ml Vial IV Q1H PRN CIWA-Ar 8-15 Lorazepam 2 mg 05/24/21 22:59 05/25/21 00:34 Lorazepam 2 Mg/Ml Vial IV 2 mg Q1H PRN Administration CIWA-Ar 8-15 Lorazepam 4 mg 05/24/21 22:59 Lorazepam 2 Mg/Ml Vial IV Q1H PRN CIWA-Ar 16-25 Lorazepam 4 mg 05/24/21 22:59 05/25/21 01:30 Lorazepam 2 Mg/Ml Vial IV 4 mg Q15MIN PRN Administration CIWA-Ar >25 Methylprednisolone Sodium Succinate 125 mg 05/24/21 20:00 05/25/21 12:01 Methylprednisolone Sod Succinate 125 Mg/2 Ml Inj IV 125 mg Q8H THERON Administration Nitroglycerin 0.4 mg 05/23/21 23:17 Nitroglycerin 0.4 Mg Tab Subl SL Q5M PRN Chest Pain Ondansetron HCl 4 mg 05/23/21 23:17 Ondansetron 4 Mg/2 Ml Inj IV Q8H PRN Nausea And Vomiting Oxycodone/Acetaminophen 1 tab 05/23/21 23:17 05/24/21 04:18 Oxycodone /Acetaminophen 5-325mg Tab PO 1 tab Q6H PRN Administration Pain, Moderate (4-6) Pseudoephedrine/Acetam/Chlorphenir 5 ml 05/24/21 14:54 05/24/21 14:59 Guaifenesin/Codeine 100-10mg Oral Liqd 5 Ml PO 5 ml Q4H PRN Administration Cough Ropinirole HCl 1 mg 05/24/21 22:00 05/25/21 01:43 Ropinirole 1 Mg Tab PO Not Given QHS THERON Senna 17.2 mg 05/25/21 22:00 Sennosides 8.6 Mg Tab PO QHS THERON Sodium Chloride 10 ml 05/24/21 10:00 05/25/21 12:01 Sodium Chloride 0.9% 10 Ml Flush Syringe IV 10 ml BID THERON Administration Sodium Chloride 10 ml 05/23/21 23:17 Sodium Chloride 0.9% 10 Ml Flush Syringe IV PRN PRN LINE FLUSH Tramadol HCl 50 mg 05/23/21 23:17 Tramadol 50 Mg Tab PO Q6H PRN Pain, Moderate (4-6) Nutrition/Malnutrition Assess - Dietary Evaluation Nutrition/Malnutrition Findings: Nutrition Notes Start: 05/25/21 11:30 Freq: Status: Active Protocol: Document 05/25/21 11:30 SG (Rec: 05/25/21 11:57 SG [id number]) Nutrition Notes Need for Assessment generated from: education administrator Initial or Follow up Assessment Current Diagnosis COPD,Hypertension Other Pertinent Diagnosis Exacerbation of CHF, Coronary syndrome, Current Diet Cardiac diet Labs/Tests reviewed Pertinent Medications reviewed Height 5 ft 6 in Weight 91.6 kg [place] Body Weight (kg) 64.54 BMI 32.5 Weight Status Obese Subjective/Other Information Pt screened for skin risk. Adam score of 15. Pt transferred from telemetry floor secondary to breathing difficulty. Minimum of two criteria No #1 Nutrition Diagnosis Predicted suboptimal energy intake Etiology hx of COPD, CHF, ETOH dependence, As Evidenced by Signs and Symptoms Pt on bipap support, possible ETOH withdrawal Is patient on ventilator? No Is Patient Ambulatory and/or Out of Bed No REE-([facility]-confined to bed) 1918.596 Kcal/Kg value to use for calculation 20 Approximate Energy Requirements Using 1832 kcal/Kg Calculation Used for Recommendations Kcal/kg Additional Notes Protein need : 2g/kg IBW of 64 .54kg = 129 g fluid needs: 1ml/kcal Nutrition Intervention Change Diet Order: Continue current diet order Goal #1 PO intake to meet at least 75% of energy and protein needs. Follow-Up By: 05/27/21 Additional Comments F/u for intakes, respiratory status
[2021-05-25 18:45] LABS: Creatinine,Urine 85.3 mg/dL (0.1-20.0)
--- NOTE | 2021-05-25 20:39 | XRay Report ---
CHEST 1 VIEW 05/25/2021 7:30 PM INDICATION / CLINICAL INFORMATION: SOB. COMPARISON: 05/23/2021 FINDINGS: SUPPORT DEVICES: None. HEART / MEDIASTINUM: Stable. LUNGS / PLEURA: No significant pulmonary or pleural abnormality. No pneumothorax. Mild bibasilar atel ectasis/scarring appears similar. ADDITIONAL FINDINGS: No significant additional findings. IMPRESSION: 1. No acute findings. Signer Name: Elvis Sarmiento MD Signed: 05/25/2021 8:34 PM Workstation Name: [email or web address]
[2021-05-25] MEDS: SENNOSIDES 8.6 MG TAB PO SCH (21:18)
[2021-05-25] MEDS ORDERED: AMIODARONE 150 MG in DEXTROSE 5% IN WATER 97 ML IV ONE (21:22)
[2021-05-25] MEDS: AMIODARONE 900 MG in DEXTROSE 5% IN WATER 482 ML IV SCH (22:25)
[2021-05-26] MEDS: cefTRIAXone/NS 1 GM/50 ML 1 GM/50 ML BAG IV SCH (02:39)
--- NOTE | 2021-05-26 02:59 | XRay Report ---
CHEST 1 VIEW 05/26/2021 1:43 AM INDICATION / CLINICAL INFORMATION: hypoxia. COMPARISON: 05/25/2021 FINDINGS: SUPPORT DEVICES: None. HEART / MEDIASTINUM: No significant abnormality. LUNGS / PLEURA: Underlying COPD with streaky bibasilar parenchymal disease, unchanged. No pneumothora x. ADDITIONAL FINDINGS: No significant additional findings. IMPRESSION: 1. No acute findings. Signer Name: Benjamín Sher MD Signed: 05/26/2021 2:54 AM Workstation Name: [id number]
[2021-05-26] MEDS: LEVALBUTEROL 0.63 MG/3 ML NEBU IH PRN (03:28)
[2021-05-26] MEDS: HEPARIN 5,000 UNIT/1 ML VIAL SUB-Q SCH ×3 (05:09→21:16)
[2021-05-26] MEDS: methylPREDNISolone Sod Succinate 125 MG/2 ML INJ IV SCH ×3 (05:09→20:43)
[2021-05-26] MEDS: FUROSEMIDE 40 MG/4 ML INJ IV SCH ×2 (05:09→17:33)
[2021-05-26 06:33] LABS: Hematocrit 37.3 % (35.5-45.6); Hemoglobin 11.7 gm/dl (11.8-15.2); Mean Corpuscular HGB Conc 31 % (32-34); Mean Corpuscular Volume 88 fl (84-94); Platelet Count 305 K/mm3 (140-440); Red Blood Count 4.26 M/mm3 (3.65-5.03); Red Cell Distribution Width 19.5 % (13.2-15.2)
[2021-05-26] MEDS: hydrALAZINE 25 MG TAB PO SCH ×3 (06:38→21:16)
[2021-05-26 06:54] LABS: Calcium 7.9 mg/dL (8.4-10.2)
[2021-05-26] MEDS: IPRATROPIUM/ALBUTEROL SULFATE 3 ML AMPUL.NEB IH SCH ×3 (07:21→19:12)
[2021-05-26] MEDS: BUDESONIDE 0.5 MG/2 ML NEBU IH SCH ×2 (07:21→19:12)
--- NOTE | 2021-05-26 11:18 | Cat Scan Report ---
CT HEAD WITHOUT CONTRAST INDICATION / CLINICAL INFORMATION: ams. TECHNIQUE: All CT scans at this location are performed using CT dose reduction for ALARA by means of automated exposure control. COMPARISON: None available. FINDINGS: BRAIN PARENCHYMA: No acute intracranial hemorrhage. No evidence of recent infarct. No mass effect or midline shift. White matter chronic small vessel ischemic changes. VENTRICULAR SYSTEM/EXTRA-AXIAL SPACES: Age-related cerebral atrophy. No extra-axial fluid collection. ORBITS: Normal as visualized. SKELETAL SYSTEM/SOFT TISSUES: Normal bones and soft tissues. PARANASAL SINUSES/MASTOID AIR CELLS: No significant abnormality. ADDITIONAL FINDINGS: None. IMPRESSION: 1. No acute intracranial abnormality. Signer Name: Rob Brink MD Signed: 05/26/2021 11:13 AM Workstation Name: [email or web address]
[2021-05-26] MEDS: ASPIRIN 81 MG TAB CHEW PO SCH (12:28)
[2021-05-26] MEDS: FAMOTIDINE 20 MG TAB PO SCH (12:28)
[2021-05-26] MEDS: CETIRIZINE 10 MG TAB PO SCH (12:28)
[2021-05-26] MEDS: guaiFENesin/CODEINE 100-10MG ORAL LIQD 5 ML PO PRN ×2 (12:28→20:42)
--- NOTE | 2021-05-26 13:20 | Progress Note ---
Assessment and Plan 75 y/o male with acute on chronic respiratory failure per IMS note secondary to CHF and COPD now with worsening of both thought secondary to ETOH withdrawal 05/26/21: Weaned of bipap. Suggest long acting therapy for ETOH symptoms withdrawal. Spoke with MEDICAL CUSTOMER SERVICE REPRESENTATIVE, would not discontinue diuretic therapy all together but would change to daily. Amio for rate control. Stable from a critical care standpoint for transfer to telemetry. 1. Continue precedex for sedation and possible withdrawal symptoms 2. Repeat CXR in am 3. Agree with diuresis, suggest another dose of lasix in am 4. Rate control per cards. 5. MOnitor electrolytes, keep K at 4 and Mag at 2 6. Wean Bipap as tolerated given current clinical state and oxygen requirements 7. Guarded prognosis. If able to be weaned from bipap and weaned off precedex, can likely go back to floor with CIWA protocol if scores will allow this once off drip. CCT 31 minutes. Subjective Date of service: 05/26/21 Interval history: Weaned off bipap and essentially on room air. Still somewhat confused. HR elevated but on amio drip. Objective Vital Signs - 12hr 05/26/21 05/26/21 05/26/21 01:21 01:30 01:41 Temperature Pulse Rate 97 H 103 H 93 H Pulse Rate [ Bilateral Upper Lobe] Pulse Rate [ Bilateral] Pulse Rate [ From Monitor] Respiratory 26 H 24 21 Rate Respiratory Rate [Bilateral Upper Lobe] Respiratory Rate [Bilateral ] Blood Pressure 139/89 136/83 136/83 O2 Sat by Pulse 99 94 97 Oximetry 05/26/21 05/26/21 05/26/21 01:51 02:01 02:11 Temperature Pulse Rate 94 H 105 H Pulse Rate [ Bilateral Upper Lobe] Pulse Rate [ Bilateral] Pulse Rate [ From Monitor] Respiratory 23 28 H 41 H Rate Respiratory Rate [Bilateral Upper Lobe] Respiratory Rate [Bilateral ] Blood Pressure 136/83 138/87 138/87 O2 Sat by Pulse 95 91 93 Oximetry 05/26/21 05/26/21 05/26/21 02:21 02:31 02:41 Temperature Pulse Rate 103 H 109 H 105 H Pulse Rate [ Bilateral Upper Lobe] Pulse Rate [ Bilateral] Pulse Rate [ From Monitor] Respiratory 26 H 35 H 28 H Rate Respiratory Rate [Bilateral Upper Lobe] Respiratory Rate [Bilateral ] Blood Pressure 136/83 143/77 143/77 O2 Sat by Pulse 93 94 96 Oximetry 05/26/21 05/26/21 05/26/21 02:51 03:01 03:11 Temperature Pulse Rate 117 H 120 H 117 H Pulse Rate [ Bilateral Upper Lobe] Pulse Rate [ Bilateral] Pulse Rate [ From Monitor] Respiratory 25 H 19 28 H Rate Respiratory Rate [Bilateral Upper Lobe] Respiratory Rate [Bilateral ] Blood Pressure 138/87 138/87 142/70 O2 Sat by Pulse 99 97 Oximetry 05/26/21 05/26/21 05/26/21 03:21 03:28 03:31 Temperature Pulse Rate 119 H 114 H Pulse Rate [ Bilateral Upper Lobe] Pulse Rate [ 120 H Bilateral] Pulse Rate [ From Monitor] Respiratory 18 24 Rate Respiratory Rate [Bilateral Upper Lobe] Respiratory 20 Rate [Bilateral ] Blood Pressure 142/70 150/93 O2 Sat by Pulse 97 96 Oximetry 05/26/21 05/26/21 05/26/21 03:40 03:41 03:51 Temperature 98.8 F Pulse Rate 120 H 150 H Pulse Rate [ Bilateral Upper Lobe] Pulse Rate [ Bilateral] Pulse Rate [ From Monitor] Respiratory 29 H 31 H Rate Respiratory Rate [Bilateral Upper Lobe] Respiratory Rate [Bilateral ] Blood Pressure 150/93 150/93 O2 Sat by Pulse 98 98 Oximetry 05/26/21 05/26/21 05/26/21 04:00 04:01 04:11 Temperature Pulse Rate 136 H 111 H Pulse Rate [ Bilateral Upper Lobe] Pulse Rate [ Bilateral] Pulse Rate [ From Monitor] Respiratory 27 H 23 Rate Respiratory Rate [Bilateral Upper Lobe] Respiratory Rate [Bilateral ] Blood Pressure 166/76 166/76 O2 Sat by Pulse 95 97 Oximetry 05/26/21 05/26/21 05/26/21 04:21 04:31 04:41 Temperature Pulse Rate 114 H 120 H 118 H Pulse Rate [ Bilateral Upper Lobe] Pulse Rate [ Bilateral] Pulse Rate [ From Monitor] Respiratory 24 22 22 Rate Respiratory Rate [Bilateral Upper Lobe] Respiratory Rate [Bilateral ] Blood Pressure 166/76 113/65 113/65 O2 Sat by Pulse 96 95 96 Oximetry 05/26/21 05/26/21 05/26/21 04:51 05:00 05:10 Temperature Pulse Rate 103 H 104 H 106 H Pulse Rate [ Bilateral Upper Lobe] Pulse Rate [ Bilateral] Pulse Rate [ From Monitor] Respiratory 20 20 20 Rate Respiratory Rate [Bilateral Upper Lobe] Respiratory Rate [Bilateral ] Blood Pressure 113/65 107/68 O2 Sat by Pulse 94 95 96 Oximetry 05/26/21 05/26/21 05/26/21 05:21 05:31 05:41 Temperature Pulse Rate 110 H 116 H 98 H Pulse Rate [ Bilateral Upper Lobe] Pulse Rate [ Bilateral] Pulse Rate [ From Monitor] Respiratory 25 H 26 H 21 Rate Respiratory Rate [Bilateral Upper Lobe] Respiratory Rate [Bilateral ] Blood Pressure 107/68 90/72 90/72 O2 Sat by Pulse 97 97 97 Oximetry 05/26/21 05/26/21 05/26/21 05:51 06:01 06:11 Temperature Pulse Rate 107 H 100 H 106 H Pulse Rate [ Bilateral Upper Lobe] Pulse Rate [ Bilateral] Pulse Rate [ From Monitor] Respiratory 22 22 21 Rate Respiratory Rate [Bilateral Upper Lobe] Respiratory Rate [Bilateral ] Blood Pressure 90/72 130/81 130/81 O2 Sat by Pulse 93 93 96 Oximetry 05/26/21 05/26/21 05/26/21 06:21 06:31 06:41 Temperature Pulse Rate 106 H 133 H 111 H Pulse Rate [ Bilateral Upper Lobe] Pulse Rate [ Bilateral] Pulse Rate [ From Monitor] Respiratory 22 22 22 Rate Respiratory Rate [Bilateral Upper Lobe] Respiratory Rate [Bilateral ] Blood Pressure 130/81 143/86 143/86 O2 Sat by Pulse 97 97 97 Oximetry 05/26/21 05/26/21 05/26/21 06:51 07:00 07:11 Temperature Pulse Rate 95 H 115 H 98 H Pulse Rate [ Bilateral Upper Lobe] Pulse Rate [ Bilateral] Pulse Rate [ From Monitor] Respiratory 23 23 24 Rate Respiratory Rate [Bilateral Upper Lobe] Respiratory Rate [Bilateral ] Blood Pressure 143/86 149/89 149/89 O2 Sat by Pulse 98 97 96 Oximetry 05/26/21 05/26/21 05/26/21 07:21 07:30 07:41 Temperature Pulse Rate 127 H 102 H 106 H Pulse Rate [ 108 H Bilateral Upper Lobe] Pulse Rate [ Bilateral] Pulse Rate [ From Monitor] Respiratory 21 23 26 H Rate Respiratory 18 Rate [Bilateral Upper Lobe] Respiratory Rate [Bilateral ] Blood Pressure 149/89 141/78 141/78 O2 Sat by Pulse 95 98 99 Oximetry 05/26/21 05/26/21 05/26/21 07:51 08:00 08:11 Temperature 97.5 F L Pulse Rate 119 H 109 H 114 H Pulse Rate [ Bilateral Upper Lobe] Pulse Rate [ Bilateral] Pulse Rate [ 102 H From Monitor] Respiratory 21 19 22 Rate Respiratory Rate [Bilateral Upper Lobe] Respiratory Rate [Bilateral ] Blood Pressure 141/78 114/63 141/78 O2 Sat by Pulse 93 96 95 Oximetry 05/26/21 05/26/21 05/26/21 08:21 08:30 08:41 Temperature Pulse Rate 111 H 105 H 104 H Pulse Rate [ Bilateral Upper Lobe] Pulse Rate [ Bilateral] Pulse Rate [ From Monitor] Respiratory 24 26 H 20 Rate Respiratory Rate [Bilateral Upper Lobe] Respiratory Rate [Bilateral ] Blood Pressure 141/78 132/77 132/77 O2 Sat by Pulse 95 94 96 Oximetry 05/26/21 05/26/21 05/26/21 08:51 09:01 09:11 Temperature Pulse Rate 113 H 146 H 117 H Pulse Rate [ Bilateral Upper Lobe] Pulse Rate [ Bilateral] Pulse Rate [ From Monitor] Respiratory 22 42 H 23 Rate Respiratory Rate [Bilateral Upper Lobe] Respiratory Rate [Bilateral ] Blood Pressure 132/77 132/77 132/77 O2 Sat by Pulse 96 91 95 Oximetry 05/26/21 05/26/21 05/26/21 09:21 09:31 09:41 Temperature Pulse Rate 110 H 109 H 114 H Pulse Rate [ Bilateral Upper Lobe] Pulse Rate [ Bilateral] Pulse Rate [ From Monitor] Respiratory 22 21 27 H Rate Respiratory Rate [Bilateral Upper Lobe] Respiratory Rate [Bilateral ] Blood Pressure 132/77 140/81 158/91 O2 Sat by Pulse 95 96 86 Oximetry 05/26/21 05/26/21 05/26/21 09:51 10:00 10:11 Temperature Pulse Rate 105 H 106 H 124 H Pulse Rate [ Bilateral Upper Lobe] Pulse Rate [ Bilateral] Pulse Rate [ From Monitor] Respiratory 22 21 22 Rate Respiratory Rate [Bilateral Upper Lobe] Respiratory Rate [Bilateral ] Blood Pressure 158/91 137/73 140/81 O2 Sat by Pulse 84 94 94 Oximetry 05/26/21 05/26/21 05/26/21 10:21 10:31 10:41 Temperature Pulse Rate 105 H 102 H 111 H Pulse Rate [ Bilateral Upper Lobe] Pulse Rate [ Bilateral] Pulse Rate [ From Monitor] Respiratory 26 H 21 26 H Rate Respiratory Rate [Bilateral Upper Lobe] Respiratory Rate [Bilateral ] Blood Pressure 140/81 139/68 137/73 O2 Sat by Pulse 97 94 98 Oximetry 05/26/21 05/26/21 05/26/21 11:05 11:11 11:21 Temperature Pulse Rate 118 H 105 H 97 H Pulse Rate [ Bilateral Upper Lobe] Pulse Rate [ Bilateral] Pulse Rate [ From Monitor] Respiratory 24 23 18 Rate Respiratory Rate [Bilateral Upper Lobe] Respiratory Rate [Bilateral ] Blood Pressure 137/73 137/73 137/73 O2 Sat by Pulse 93 96 96 Oximetry 05/26/21 05/26/21 05/26/21 11:30 11:41 11:51 Temperature Pulse Rate 99 H 98 H 100 H Pulse Rate [ Bilateral Upper Lobe] Pulse Rate [ Bilateral] Pulse Rate [ From Monitor] Respiratory 22 14 24 Rate Respiratory Rate [Bilateral Upper Lobe] Respiratory Rate [Bilateral ] Blood Pressure 147/86 139/68 139/68 O2 Sat by Pulse 95 97 97 Oximetry 05/26/21 05/26/21 05/26/21 12:00 12:01 12:11 Temperature Pulse Rate 95 H 97 H 94 H Pulse Rate [ Bilateral Upper Lobe] Pulse Rate [ Bilateral] Pulse Rate [ 94 H From Monitor] Respiratory 23 18 Rate Respiratory Rate [Bilateral Upper Lobe] Respiratory Rate [Bilateral ] Blood Pressure 139/68 139/68 O2 Sat by Pulse 97 99 95 Oximetry 05/26/21 05/26/21 05/26/21 12:21 12:31 12:41 Temperature Pulse Rate 97 H 99 H 105 H Pulse Rate [ Bilateral Upper Lobe] Pulse Rate [ Bilateral] Pulse Rate [ From Monitor] Respiratory 22 21 23 Rate Respiratory Rate [Bilateral Upper Lobe] Respiratory Rate [Bilateral ] Blood Pressure 139/68 144/81 144/81 O2 Sat by Pulse 97 95 96 Oximetry 05/26/21 05/26/21 05/26/21 12:51 13:00 13:11 Temperature Pulse Rate 99 H 98 H 107 H Pulse Rate [ Bilateral Upper Lobe] Pulse Rate [ Bilateral] Pulse Rate [ From Monitor] Respiratory 25 H 27 H 23 Rate Respiratory Rate [Bilateral Upper Lobe] Respiratory Rate [Bilateral ] Blood Pressure 144/81 148/81 144/81 O2 Sat by Pulse 90 92 100 Oximetry Constitutional: no acute distress, alert, appears uncomfortable Ascultation: Bilateral: rales Percussion: Bilateral: not dull Cardiovascular: other (sinus tach) Gastrointestinal: normoactive bowel sounds, soft CBC and BMP: 05/26/21 06:10 08/15/21 06:10 ABG, PT/INR, D-dimer: ABG ABG pH 7.343 (7.320-7.450) 05/24/21 20:48 POC ABG pCO2 42.9 mmHg (32.0-48.0) 05/24/21 20:48 POC ABG pO2 136.5 mmHg (83-108) H 05/24/21 20:48 POC ABG HCO3 22.8 05/24/21 20:48 ABG O2 Saturation 98.6 (0-100) 05/24/21 20:48 PT/INR, D-dimer PT 20.2 Sec. (12.2-14.9) H 05/23/21 17:37 INR 1.66 (0.87-1.13) H 05/23/21 17:37 Abnormal lab findings: Abnormal Labs 05/23/21 05/23/21 05/23/21 17:37 17:37 17:37 WBC Hgb MCHC RDW 19.3 H Lymph % (Auto) Lymph # (Auto) Seg Neutrophils % Seg Neuts % (Manual) 86.0 H Lymphocytes % (Manual) 10.0 L Seg Neutrophils # Man Lymphocytes # (Manual) 0.7 L PT 20.2 H INR 1.66 H POC ABG pO2 ABG Sodium ABG Glucose Sodium Chloride BUN Creatinine Glucose 120 H POC Glucose Lactic Acid Calcium Magnesium Ammonia Troponin T 0.030 H NT-Pro-B Natriuret Pep HDL Cholesterol 67 H Arterial Blood Glucose Arterial Blood Ionized Calcium Urine Creatinine 05/23/21 05/23/21 05/23/21 17:37 20:01 23:17 WBC Hgb MCHC RDW Lymph % (Auto) Lymph # (Auto) Seg Neutrophils % Seg Neuts % (Manual) Lymphocytes % (Manual) Seg Neutrophils # Man Lymphocytes # (Manual) PT INR POC ABG pO2 ABG Sodium ABG Glucose Sodium Chloride BUN Creatinine Glucose POC Glucose Lactic Acid 7.00 H* Calcium Magnesium Ammonia Troponin T 0.031 H NT-Pro-B Natriuret Pep 3136 H HDL Cholesterol Arterial Blood Glucose Arterial Blood Ionized Calcium Urine Creatinine 05/23/21 05/24/21 05/24/21 23:29 03:01 03:01 WBC Hgb MCHC RDW 19.4 H Lymph % (Auto) 5.2 L Lymph # (Auto) 0.3 L Seg Neutrophils % 88.1 H Seg Neuts % (Manual) Lymphocytes % (Manual) Seg Neutrophils # Man Lymphocytes # (Manual) PT INR POC ABG pO2 ABG Sodium ABG Glucose Sodium Chloride BUN Creatinine 1.7 H D Glucose 342 H POC Glucose Lactic Acid 4.90 H* Calcium Magnesium Ammonia Troponin T NT-Pro-B Natriuret Pep HDL Cholesterol Arterial Blood Glucose Arterial Blood Ionized Calcium Urine Creatinine 05/24/21 05/24/21 05/25/21 03:01 20:48 02:45 WBC Hgb 11.6 L MCHC RDW 19.0 H Lymph % (Auto) Lymph # (Auto) Seg Neutrophils % Seg Neuts % (Manual) 95.0 H Lymphocytes % (Manual) 1.0 L Seg Neutrophils # Man 9.5 H Lymphocytes # (Manual) 0.1 L PT INR POC ABG pO2 136.5 H ABG Sodium 130.6 L ABG Glucose 141 H Sodium Chloride BUN Creatinine 1.6 H Glucose 199 H POC Glucose Lactic Acid Calcium 8.2 L Magnesium Ammonia Troponin T NT-Pro-B Natriuret Pep HDL Cholesterol Arterial Blood Glucose 141 H Arterial Blood Ionized Calcium 4.0 L Urine Creatinine 05/25/21 05/25/21 05/25/21 02:45 13:18 17:56 WBC Hgb MCHC RDW Lymph % (Auto) Lymph # (Auto) Seg Neutrophils % Seg Neuts % (Manual) Lymphocytes % (Manual) Seg Neutrophils # Man Lymphocytes # (Manual) PT INR POC ABG pO2 ABG Sodium ABG Glucose Sodium 135 L Chloride 92.2 L BUN 22 H Creatinine 1.7 H Glucose POC Glucose 112 H 116 H Lactic Acid Calcium 8.2 L Magnesium Ammonia Troponin T NT-Pro-B Natriuret Pep HDL Cholesterol Arterial Blood Glucose Arterial Blood Ionized Calcium Urine Creatinine 05/25/21 05/25/21 05/26/21 18:00 23:07 05:40 WBC Hgb MCHC RDW Lymph % (Auto) Lymph # (Auto) Seg Neutrophils % Seg Neuts % (Manual) Lymphocytes % (Manual) Seg Neutrophils # Man Lymphocytes # (Manual) PT INR POC ABG pO2 ABG Sodium ABG Glucose Sodium Chloride BUN Creatinine Glucose POC Glucose 129 H 151 H Lactic Acid Calcium Magnesium Ammonia Troponin T NT-Pro-B Natriuret Pep HDL Cholesterol Arterial Blood Glucose Arterial Blood Ionized Calcium Urine Creatinine 85.3 H 05/26/21 05/26/21 05/26/21 06:10 06:10 11:53 WBC 12.8 H Hgb 11.7 L MCHC 31 L RDW 19.5 H Lymph % (Auto) Lymph # (Auto) Seg Neutrophils % Seg Neuts % (Manual) Lymphocytes % (Manual) Seg Neutrophils # Man Lymphocytes # (Manual) PT INR POC ABG pO2 ABG Sodium ABG Glucose Sodium Chloride BUN 45 H Creatinine 1.8 H Glucose 149 H POC Glucose Lactic Acid Calcium 7.9 L Magnesium 2.40 H Ammonia 14.0 L Troponin T NT-Pro-B Natriuret Pep HDL Cholesterol Arterial Blood Glucose Arterial Blood Ionized Calcium Urine Creatinine 05/26/21 12:48 WBC Hgb MCHC RDW Lymph % (Auto) Lymph # (Auto) Seg Neutrophils % Seg Neuts % (Manual) Lymphocytes % (Manual) Seg Neutrophils # Man Lymphocytes # (Manual) PT INR POC ABG pO2 ABG Sodium ABG Glucose Sodium Chloride BUN Creatinine Glucose POC Glucose 137 H Lactic Acid Calcium Magnesium Ammonia Troponin T NT-Pro-B Natriuret Pep HDL Cholesterol Arterial Blood Glucose Arterial Blood Ionized Calcium Urine Creatinine
--- NOTE | 2021-05-26 13:50 | Progress Note ---
Assessment and Plan Assessment and plan: This is an 75-year-old female with COPD on home oxygen of 2.5 L and HTN who was admitted for COPD exacerbation,, acute exacerbation of chronic CHF and to rule out ACS Neuro: Generalized anxiety, ? EtOH abuse -Patient currently sedated on Precedex drip -Patient awake/alert/orientated x3 -s/p Precedex -Avoid delirium -Reorientation as needed -CIWA protocol -Requip -As needed Xanax Cardio: r/o ACS, acute on chronic exacerbation of CHF, NSTEMI -Cardiology consulted, appreciate recommendations -Echocardiogram completed on 05/23 shows LVEF of 55 to 60%, mild LVH, normal biventricular function-see report -Admit proBNP 3136 -Trended cardiac enzymes (0.030, 0.031, 0.023) -Aspirin, Lipitor, Lasix (dose reduced to qday) -Hydralazine, as needed hydralazine, as needed nitroglycerin -Blood pressure monitoring per protocol -Amio gtt Respiratory: Acute on chronic hypoxic respiratory failure, COPD exacerbation -S/p BiPAP therapy currently on nasal cannula -SPO2 monitoring per protocol -Pulmonary hygiene -CCM consulted, appreciate recommendations -As needed Robitussin and cefazolin GI: NAD -Cardiac diet -ST eval ordered -BR: senna -PPI : Acute kidney injury, hyponatremia, hypochloremia -Strict intake and output -Patient is on Lasix; will change to qday today -Trend BMP -24 hours -845ml -Santos-> will d/c today -Nephrology consult if needed Endo: NAD -Avoid hypoglycemia -BG q6 Heme: NAD -Heparin subq -SCDs to BLE -Trend CBC -Transfuse for hbg <7 ID: NAD -Trend CBC -Monitor for sx of infection The high probability of a clinically significant, sudden or life threatening deterioration of the [neuro/resp] system(s) required my full and direct attention, intervention and personal management. The aggregate critical care time was [60] minutes. This time is in addition to time spent performing reported procedures but includes the following: [x] Data Review and interpretation [x] Patient assessment and monitoring of vital signs [x] Documentation [x] Medication orders and management Disposition Plan: transfer to floor Total Time Spent with Patient (Minutes): 60 History Interval history: This is a 75-year-old male with COPD on home oxygen of 2.5 L, nicotine abuse and HTN who presents to the emergency department 05/23 because of mild orthopnea and nagging cough for 1 day and substernal chest pain described as tightness in nature. Work-up in the emergency department revealed proBNP of 3136, troponin 0 0.03 and CXR showed bibasilar segmental atelectasis/scarring with patchy parenchymal disease in the right lower lung base. Patient was admitted to the hospitalist service with acute exacerbation of chronic congestive heart failure, rule out ACS, COPD exacerbation consults to cardiology and eventually pulmonology was consulted due to acute respiratory distress. 05/24: Was on 2 L nasal cannula and awake, alert and oriented without any acute distress in the a.m. when examined by the hospitalist however around 1900 code met was called as the patient was very short of breath and hypertensive with a blood pressure of 200/110, tachycardia into the 170s and very agitated and restl ess. He was also wheezing. Patient was given IV hydralazine, IV Cardizem and started on a Cardizem drip and transferred to the ICU on BiPAP therapy. CCM was consulted. 05/25: Patient weaned to NC from BiPAP this morning. Weaning Precedex as tolerated. AM labs 05/26: Patient had moments of lucidity and followed by AMS. Patient failed bedside swallow overngith so ST eval ordered. CT head shows no acute intercranial abnomality. Patient is alert and orientated. Santos removed. Hospitalist Physical - Constitutional Vitals: Temp Pulse Resp BP Pulse Ox 97.5 F L 113 H 23 148/81 100 05/26/21 08:00 05/26/21 13:17 05/26/21 13:11 05/26/21 13:17 05/26/21 13:11 General appearance: Present: well-nourished, other (On 2 L nasal cannula oxygen) - EENT Eyes: Present: PERRL ENT: poor dentition - Neck Neck: Present: normal ROM - Respiratory Respiratory effort: normal Respiratory: bilateral: wheezing - Cardiovascular Rhythm: regular Heart Sounds: Present: S1 & S2. Absent: systolic murmur, diastolic murmur - Extremities Extremities: no ischemia, pulses intact, pulses symmetrical, No edema, normal temperature, normal color, Full ROM Peripheral Pulses: within normal limits - Abdominal General gastrointestinal: soft, non-tender, non-distended, normal bowel sounds - Integumentary Integumentary: Present: warm, dry - Psychiatric Psychiatric: cooperative - Neurologic Neurologic: CNII-XII intact, moves all extremities - Allied Health Allied health notes reviewed: nursing, RT, social work HEART Score - HEART Score EKG: Non-specific Age: > 65 Risk factors: 1-2 risk factors Troponin: Troponin T 0.023 ng/mL (0.00-0.029) 05/24/21 04:58 Troponin: 1-3x normal limit Results - Labs CBC & Chem 7: 05/26/21 06:10 05/26/21 06:10 Labs: Laboratory Last Values WBC 12.8 K/mm3 (4.5-11.0) H 05/26/21 06:10 RBC 4.26 M/mm3 (3.65-5.03) 05/26/21 06:10 Hgb 11.7 gm/dl (11.8-15.2) L 05/26/21 06:10 Hct 37.3 % (35.5-45.6) 05/26/21 06:10 MCV 88 fl (84-94) 05/26/21 06:10 MCH 28 pg (28-32) 05/26/21 06:10 MCHC 31 % (32-34) L 05/26/21 06:10 RDW 19.5 % (13.2-15.2) H 05/26/21 06:10 Plt Count 305 K/mm3 (140-440) 05/26/21 06:10 Lymph % (Auto) 5.2 % (13.4-35.0) L 05/24/21 03:01 [place] % (Auto) 6.6 % (0.0-7.3) 05/24/21 03:01 Eos % (Auto) 0.0 % (0.0-4.3) 05/24/21 03:01 Baso % (Auto) 0.1 % (0.0-1.8) 05/24/21 03:01 Lymph # (Auto) 0.3 K/mm3 (1.2-5.4) L 05/24/21 03:01 [place] # (Auto) 0.4 K/mm3 (0.0-0.8) 05/24/21 03:01 Eos # (Auto) 0.0 K/mm3 (0.0-0.4) 05/24/21 03:01 Baso # (Auto) 0.0 K/mm3 (0.0-0.1) 05/24/21 03:01 Add Manual Diff Complete 05/25/21 02:45 Total Counted 100 05/25/21 02:45 Seg Neutrophils % Wastewater Treatment Engineer 05/25/21 02:45 Seg Neuts % (Manual) 95.0 % (40.0-70.0) H 05/25/21 02:45 Lymphocytes % (Manual) 1.0 % (13.4-35.0) L 05/25/21 02:45 Monocytes % (Manual) 4.0 % (0.0-7.3) 05/25/21 02:45 Nucleated RBC % Not Reportable 05/25/21 02:45 Seg Neutrophils # 5.2 K/mm3 (1.8-7.7) 05/24/21 03:01 Seg Neutrophils # Man 9.5 K/mm3 (1.8-7.7) H 05/25/21 02:45 Band Neutrophils # 0.0 K/mm3 05/25/21 02:45 Lymphocytes # (Manual) 0.1 K/mm3 (1.2-5.4) L 05/25/21 02:45 Abs React Lymphs (Man) 0.0 K/mm3 05/25/21 02:45 Monocytes # (Manual) 0.4 K/mm3 (0.0-0.8) 05/25/21 02:45 Eosinophils # (Manual) 0.0 K/mm3 (0.0-0.4) 05/25/21 02:45 Basophils # (Manual) 0.0 K/mm3 (0.0-0.1) 05/25/21 02:45 Metamyelocytes # 0.0 K/mm3 05/25/21 02:45 Myelocytes # 0.0 K/mm3 05/25/21 02:45 Promyelocytes # 0.0 K/mm3 05/25/21 02:45 Blast Cells # 0.0 K/mm3 05/25/21 02:45 WBC Morphology Not Reportable 05/25/21 02:45 Hypersegmented Neuts Not Reportable 05/25/21 02:45 Hyposegmented Neuts Not Reportable 05/25/21 02:45 Hypogranular Neuts Not Reportable 05/25/21 02:45 Smudge Cells Not Reportable 05/25/21 02:45 Toxic Granulation Not Reportable 05/25/21 02:45 Toxic Vacuolation Not Reportable 05/25/21 02:45 Dohle Bodies Not Reportable 05/25/21 02:45 Pelger-Huet Anomaly Not Reportable 05/25/21 02:45 Fabricio Rods Not Reportable 05/25/21 02:45 Platelet Estimate Consistent w auto 05/25/21 02:45 Clumped Platelets Not Reportable 05/25/21 02:45 Plt Clumps, EDTA Not Reportable 05/25/21 02:45 Large Platelets Not Reportable 05/25/21 02:45 Giant Platelets Not Reportable 05/25/21 02:45 Platelet Satelliting Not Reportable 05/25/21 02:45 Plt Morphology Comment Not Reportable 05/25/21 02:45 RBC Morphology Not Reportable 05/25/21 02:45 Dimorphic RBCs Not Reportable 05/25/21 02:45 Polychromasia Not Reportable 05/25/21 02:45 Hypochromasia Not Reportable 05/25/21 02:45 Poikilocytosis Not Reportable 05/25/21 02:45 Anisocytosis 1+ 05/25/21 02:45 Microcytosis Not Reportable 05/25/21 02:45 Macrocytosis Not Reportable 05/25/21 02:45 Spherocytes Not Reportable 05/25/21 02:45 Pappenheimer Bodies Not Reportable 05/25/21 02:45 Sickle Cells Not Reportable 05/25/21 02:45 Target Cells Not Reportable 05/25/21 02:45 Tear Drop Cells Not Reportable 05/25/21 02:45 Ovalocytes Not Reportable 05/25/21 02:45 Helmet Cells Not Reportable 05/25/21 02:45 [place] Bodies Not Reportable 05/25/21 02:45 [place] Rings Not Reportable 05/25/21 02:45 [place] Cells Not Reportable 05/25/21 02:45 Bite Cells Not Reportable 05/25/21 02:45 Crenated Cell Not Reportable 05/25/21 02:45 Elliptocytes Not Reportable 05/25/21 02:45 Acanthocytes (Spur) Not Reportable 05/25/21 02:45 Rouleaux Not Reportable 05/25/21 02:45 Hemoglobin C Crystals Not Reportable 05/25/21 02:45 Schistocytes Not Reportable 05/25/21 02:45 Malaria parasites Not Reportable 05/25/21 02:45 Julio Cesar Bodies Not Reportable 05/25/21 02:45 Hem Pathologist Commnt No 05/25/21 02:45 PT 20.2 Sec. (12.2-14.9) H 05/23/21 17:37 INR 1.66 (0.87-1.13) H 05/23/21 17:37 APTT 32.9 Sec. (24.2-36.6) 05/23/21 17:37 ABG pH 7.343 (7.320-7.450) 05/24/21 20:48 POC ABG pCO2 42.9 mmHg (32.0-48.0) 05/24/21 20:48 POC ABG pO2 136.5 mmHg (83-108) H 05/24/21 20:48 POC ABG HCO3 22.8 05/24/21 20:48 ABG O2 Saturation 98.6 (0-100) 05/24/21 20:48 POC ABG Base Excess -2.9 05/24/21 20:48 ABG Hemoglobin 13.0 (12.0-17.5) 05/24/21 20:48 ABG Oxyhemoglobin 97.6 (94-98) 05/24/21 20:48 ABG Methemoglobin 0.3 (0.0-1.5) 05/24/21 20:48 ABG Sodium 130.6 mmol/L (136.0-145.0) L 05/24/21 20:48 ABG Potassium 4.2 mmol/L (3.40-4.50) 05/24/21 20:48 ABG Chloride 100.0 mmol/L (98-107) 05/24/21 20:48 ABG Glucose 141 mg/dL (65-95) H 05/24/21 20:48 Carboxyhemoglobin 0.7 (0.5-1.5) 05/24/21 20:48 FiO2 % 100.0 05/24/21 20:48 Sodium 140 mmol/L (137-145) 05/26/21 06:10 Potassium 4.3 mmol/L (3.6-5.0) 05/26/21 06:10 Chloride 98.6 mmol/L (98-107) 05/26/21 06:10 Carbon Dioxide 26 mmol/L (22-30) 05/26/21 06:10 Anion Gap 20 mmol/L 05/26/21 06:10 BUN 45 mg/dL (9-20) H 05/26/21 06:10 Creatinine 1.8 mg/dL (0.8-1.3) H 05/26/21 06:10 Estimated GFR 37 ml/min 05/26/21 06:10 BUN/Creatinine Ratio 25 % 05/26/21 06:10 Glucose 149 mg/dL (75-100) H 05/26/21 06:10 POC Glucose 137 mg/dL (70-105) H 05/26/21 12:48 Lactic Acid 1.50 mmol/L (0.7-2.0) 05/24/21 22:55 Calcium 7.9 mg/dL (8.4-10.2) L 05/26/21 06:10 Phosphorus 4.50 mg/dL (2.5-4.5) 05/26/21 06:10 Magnesium 2.40 mg/dL (1.7-2.3) H 05/26/21 06:10 Total Bilirubin 0.50 mg/dL (0.1-1.2) 05/25/21 02:45 AST 36 units/L (5-40) 05/25/21 02:45 ALT 13 units/L (7-56) 05/25/21 02:45 Alkaline Phosphatase 60 units/L (35-129) 05/25/21 02:45 Ammonia 14.0 umol/L (25-60) L 05/26/21 11:53 Troponin T 0.023 ng/mL (0.00-0.029) 05/24/21 04:58 NT-Pro-B Natriuret Pep 3136 pg/mL (0-900) H 05/23/21 17:37 Total Protein 6.8 g/dL (6.3-8.2) 05/25/21 02:45 Albumin 3.9 g/dL (3.9-5) 05/25/21 02:45 Albumin/Globulin Ratio 1.3 % 05/25/21 02:45 Triglycerides 93 mg/dL (2-149) 05/23/21 17:37 Cholesterol 140 mg/dL (50-199) 05/23/21 17:37 LDL Cholesterol Direct 63 mg/dL (50-130) 05/23/21 17:37 HDL Cholesterol 67 mg/dL (40-59) H 05/23/21 17:37 Cholesterol/HDL Ratio 2.08 % 05/23/21 17:37 Arterial Blood Glucose 141 mg/dL (65-95) H 05/24/21 20:48 Arterial Blood Ionized Calcium 4.0 mg/dL (4.6-5.3) L 05/24/21 20:48 Urine Osmolality 353 Mosm/kg 05/25/21 18:00 Urine Creatinine 85.3 mg/dL (0.1-20.0) H 05/25/21 18:00 Urine Sodium 25 mmol/L 05/25/21 18:00 Urine Potassium 58.93 mmol/L 05/25/21 18:00 Microbiology: Microbiology 05/23/21 17:37 Peripheral/Venous Blood Culture - Preliminary NO GROWTH AFTER 48 HOURS 05/23/21 17:37 Peripheral/Venous Blood Culture - Preliminary NO GROWTH AFTER 48 HOURS Santos/IV: Voiding Method Indwelling Catheter Active Medications - Current Medications Current Medications: Generic Name Dose Route Start Last Admin Trade Name Freq PRN Reason Stop Dose Admin Acetaminophen 650 mg 05/23/21 23:17 Acetaminophen 325 Mg Tab PO Q6H PRN Pain, Mild (1-3) Albuterol/Ipratropium 1 ampul 05/25/21 14:00 05/26/21 13:06 Ipratropium/Albuterol Sulfate 3 Ml Ampul.Neb IH 1 ampul TIDRT THERON Administration Alprazolam 0.5 mg 05/24/21 18:53 Alprazolam 0.5 Mg Tab PO Q8H PRN Anxiety Aspirin 81 mg 05/26/21 10:00 05/26/21 12:28 Aspirin 81 Mg Tab Chew PO 81 mg QDAY THERON Administration Atorvastatin Calcium 40 mg 05/24/21 22:00 05/25/21 21:18 Atorvastatin 40 Mg Tab PO Not Given [facility]HS [facility] Budesonide 0.5 mg 05/24/21 20:00 05/26/21 07:21 Budesonide 0.5 Mg/2 Ml Nebu IH 0.5 mg Q12HRT THERON Administration Cetirizine HCl 10 mg 05/24/21 12:00 05/26/21 12:28 Cetirizine 10 Mg Tab PO 10 mg QDAY THERON Administration Dextrose 50 ml 05/25/21 09:30 Dextrose 50% In Water (25gm) 50 Ml Syringe IV Q30MIN PRN Hypoglycemia Protocol Famotidine 20 mg 05/24/21 11:00 05/26/21 12:28 Famotidine 20 Mg Tab PO 20 mg DAILY THERON Administration Furosemide 40 mg 05/24/21 06:00 05/26/21 05:09 Furosemide 40 Mg/4 Ml Inj IV 40 mg BID@0600,1800 THERON Administration Heparin Sodium (Porcine) 5,000 unit 05/24/21 06:00 05/26/21 13:17 Heparin 5,000 Unit/1 Ml Vial SUB-Q 5,000 unit Q8HR THERON Administration Hydralazine HCl 10 mg 05/23/21 23:30 05/24/21 18:02 Hydralazine 20 Mg/1 Ml Inj IV 10 mg Q6H PRN Administration SBP >/=165; DBP >/=100 Hydralazine HCl 50 mg 05/24/21 20:00 05/26/21 13:17 Hydralazine 25 Mg Tab PO 50 mg Q8HR THERON Administration Hydromorphone HCl 0.5 mg 05/23/21 23:17 05/24/21 16:34 Hydromorphone 1 Mg/1 Ml Inj IV 0.5 mg Q3H PRN Administration Pain , Severe (7-10) Ceftriaxone Sodium 1 gm in 50 mls @ 100 mls/hr 05/24/21 01:00 05/26/21 04:06 Rocephin/Ns 1 Gm/50 Ml IV Infused Q24H THERON Infusion Protocol Dexmedetomidine HCl 400 mcg/ 104 mls @ 4.763 mls/hr 05/25/21 02:00 05/26/21 07:40 Sodium Chloride IV 0 mcg/kg/hr TITRATE THERON 0 mls/hr Titration Protocol 0.2 MCG/KG/HR Amiodarone HCl 900 mg/ 500 mls @ 33.333 mls/hr 05/25/21 22:00 05/26/21 04:30 Dextrose IV 0.5 mg/min DIRECT THERON 16.667 mls/hr Titration Protocol 1 MG/MIN Insulin Human Regular 0 units 05/25/21 09:00 Insulin Regular, Human 100 Units/1 Ml SUB-Q Q6H PRN Hyperglycemia Protocol Levalbuterol HCl 0.63 mg 05/24/21 19:52 05/26/21 03:28 Levalbuterol 0.63 Mg/3 Ml Nebu IH 0.63 mg Q6H PRN Administration Shortness Of Breath Lorazepam 1 mg 05/24/21 19:53 Lorazepam 2 Mg/Ml Vial IV Q1H PRN CIWA-Ar 8-15 Lorazepam 2 mg 05/24/21 22:59 05/25/21 00:34 Lorazepam 2 Mg/Ml Vial IV 2 mg Q1H PRN Administration CIWA-Ar 8-15 Lorazepam 4 mg 05/24/21 22:59 Lorazepam 2 Mg/Ml Vial IV Q1H PRN CIWA-Ar 16-25 Lorazepam 4 mg 05/24/21 22:59 05/25/21 01:30 Lorazepam 2 Mg/Ml Vial IV 4 mg Q15MIN PRN Administration CIWA-Ar >25 Methylprednisolone Sodium Succinate 125 mg 05/24/21 20:00 05/26/21 12:33 Methylprednisolone Sod Succinate 125 Mg/2 Ml Inj IV 125 mg Q8H THERON Administration Nitroglycerin 0.4 mg 05/23/21 23:17 Nitroglycerin 0.4 Mg Tab Subl SL Q5M PRN Chest Pain Ondansetron HCl 4 mg 05/23/21 23:17 Ondansetron 4 Mg/2 Ml Inj IV Q8H PRN Nausea And Vomiting Oxycodone/Acetaminophen 1 tab 05/23/21 23:17 05/24/21 04:18 Oxycodone /Acetaminophen 5-325mg Tab PO 1 tab Q6H PRN Administration Pain, Moderate (4-6) Pseudoephedrine/Acetam/Chlorphenir 5 ml 05/24/21 14:54 05/26/21 12:28 Guaifenesin/Codeine 100-10mg Oral Liqd 5 Ml PO 5 ml Q4H PRN Administration Cough Ropinirole HCl 1 mg 05/24/21 22:00 05/25/21 21:18 Ropinirole 1 Mg Tab PO Not Given QHS THERON Senna 17.2 mg 05/25/21 22:00 05/25/21 21:18 Sennosides 8.6 Mg Tab PO Not Given QHS THERON Sodium Chloride 10 ml 05/24/21 10:00 05/26/21 12:28 Sodium Chloride 0.9% 10 Ml Flush Syringe IV 10 ml BID THERON Administration Sodium Chloride 10 ml 05/23/21 23:17 Sodium Chloride 0.9% 10 Ml Flush Syringe IV PRN PRN LINE FLUSH Tramadol HCl 50 mg 05/23/21 23:17 Tramadol 50 Mg Tab PO Q6H PRN Pain, Moderate (4-6) Nutrition/Malnutrition Assess - Dietary Evaluation Nutrition/Malnutrition Findings: Nutrition Notes Start: 05/25/21 11:30 Freq: Status: Active Protocol: Document 05/25/21 11:30 SG (Rec: 05/25/21 11:57 SG [id number]) Nutrition Notes Need for Assessment generated from: corporate development manager Initial or Follow up Assessment Current Diagnosis COPD,Hypertension Other Pertinent Diagnosis Exacerbation of CHF, Coronary syndrome, Current Diet Cardiac diet Labs/Tests reviewed Pertinent Medications reviewed Height 5 ft 6 in Weight 91.6 kg [place] Body Weight (kg) 64.54 BMI 32.5 Weight Status Obese Subjective/Other Information Pt screened for skin risk. Adam score of 15. Pt transferred from telemetry floor secondary to breathing difficulty. Minimum of two criteria No #1 Nutrition Diagnosis Predicted suboptimal energy intake Etiology hx of COPD, CHF, ETOH dependence, As Evidenced by Signs and Symptoms Pt on bipap support, possible ETOH withdrawal Is patient on ventilator? No Is Patient Ambulatory and/or Out of Bed No REE-([facility]-confined to bed) 1918.596 Kcal/Kg value to use for calculation 20 Approximate Energy Requirements Using 1832 kcal/Kg Calculation Used for Recommendations Kcal/kg Additional Notes Protein need : 2g/kg IBW of 64 .54kg = 129 g fluid needs: 1ml/kcal Nutrition Intervention Change Diet Order: Continue current diet order Goal #1 PO intake to meet at least 75% of energy and protein needs. Follow-Up By: 05/27/21 Additional Comments F/u for intakes, respiratory status
[2021-05-26] MEDS: HYDROmorphone 1 MG/1 ML INJ IV PRN (17:33)
[2021-05-26] MEDS: AMIODARONE 900 MG in DEXTROSE 5% IN WATER 482 ML IV SCH (20:42)
[2021-05-26] MEDS: rOPINIRole 1 MG TAB PO SCH (21:17)
[2021-05-26] MEDS: SENNOSIDES 8.6 MG TAB PO SCH (21:17)
[2021-05-27] MEDS: cefTRIAXone/NS 1 GM/50 ML 1 GM/50 ML BAG IV SCH (01:19)
[2021-05-27] MEDS: guaiFENesin/CODEINE 100-10MG ORAL LIQD 5 ML PO PRN ×2 (03:13→23:00)
[2021-05-27] MEDS: methylPREDNISolone Sod Succinate 125 MG/2 ML INJ IV SCH ×3 (03:13→23:00)
[2021-05-27] MEDS: HYDROmorphone 1 MG/1 ML INJ IV PRN (04:35)
[2021-05-27] MEDS: HEPARIN 5,000 UNIT/1 ML VIAL SUB-Q SCH ×3 (07:20→23:00)
[2021-05-27] MEDS: FUROSEMIDE 40 MG/4 ML INJ IV SCH (07:20)
[2021-05-27] MEDS: hydrALAZINE 25 MG TAB PO SCH ×3 (07:23→23:00)
[2021-05-27] MEDS: BUDESONIDE 0.5 MG/2 ML NEBU IH SCH ×2 (10:30→21:03)
[2021-05-27] MEDS: IPRATROPIUM/ALBUTEROL SULFATE 3 ML AMPUL.NEB IH SCH ×3 (10:30→21:03)
[2021-05-27] MEDS: CETIRIZINE 10 MG TAB PO SCH (10:47)
[2021-05-27] MEDS: ASPIRIN 81 MG TAB CHEW PO SCH (10:47)
[2021-05-27] MEDS: FAMOTIDINE 20 MG TAB PO SCH (10:47)
--- NOTE | 2021-05-27 10:56 | Electrocardiograph Report ---
[facility] Test Date: 2021-05-24 Test Time: 22:22:53 Pat Name: SAMMY TEIXEIRA Department: Room: A251 Gender: M Social Secretary: RON : 1945 Requested By: FAITH TRAN Order Number: [id number] Reading MD: Anthony Jones Measurements Intervals [place] Rate: 118 P: 74 PA: 167 QRS: 17 QRSD: 101 T: 119 QT: 308 QTc: 430 Interpretive Statements Sinus tachycardia Ventricular premature complex Compared to ECG 05/23/2021 22:40:43 Ventricular premature complex(es) now present Atrial premature complex(es) no longer present otherwise no significant change noted. Electronically Signed On 05-27-2021 10:55:01 EDT by Anthony Jones
--- NOTE | 2021-05-27 12:03 | Progress Note ---
Assessment and Plan 75 y/o male with acute on chronic respiratory failure per IMS note secondary to CHF and COPD now with worsening of both thought secondary to ETOH withdrawal 05/27/21: Transfer orders in but no bed available. Will sign off. Call if questions. 05/26/21: Weaned of bipap. Suggest long acting therapy for ETOH symptoms withdrawal. Spoke with [facility] [facility], would not discontinue diuretic therapy all together but would change to daily. Amio for rate control. Stable from a critical care standpoint for transfer to telemetry. 1. Continue precedex for sedation and possible withdrawal symptoms 2. Repeat CXR in am 3. Agree with diuresis, suggest another dose of lasix in am 4. Rate control per cards. 5. MOnitor electrolytes, keep K at 4 and Mag at 2 6. Wean Bipap as tolerated given current clinical state and oxygen requirements 7. Guarded prognosis. If able to be weaned from bipap and weaned off precedex, can likely go back to floor with CIWA protocol if scores will allow this once off drip. CCT 31 minutes. Subjective Date of service: 05/27/21 Interval history: Still in unit as no beds available. pulm status stable. Objective Vital Signs - 12hr 05/27/21 05/27/21 05/27/21 00:11 00:21 00:30 Temperature Pulse Rate 100 H 90 89 Respiratory 17 20 15 Rate Blood Pressure 126/70 126/70 120/74 O2 Sat by Pulse 95 98 96 Oximetry 05/27/21 05/27/21 05/27/21 00:41 00:51 01:00 Temperature Pulse Rate 89 89 92 H Respiratory 15 16 17 Rate Blood Pressure 120/74 120/74 121/67 O2 Sat by Pulse 96 95 96 Oximetry 05/27/21 05/27/21 05/27/21 01:11 01:21 01:30 Temperature Pulse Rate 90 88 88 Respiratory 16 15 15 Rate Blood Pressure 121/67 121/67 120/69 O2 Sat by Pulse 96 96 95 Oximetry 05/27/21 05/27/21 05/27/21 01:41 01:51 02:01 Temperature Pulse Rate 91 H 87 92 H Respiratory 17 16 23 Rate Blood Pressure 120/69 120/69 131/78 O2 Sat by Pulse 97 96 95 Oximetry 05/27/21 05/27/21 05/27/21 02:11 02:21 02:23 Temperature Pulse Rate 87 88 Respiratory 15 20 Rate Blood Pressure 131/78 131/78 O2 Sat by Pulse 96 97 97 Oximetry 05/27/21 05/27/21 05/27/21 02:31 02:41 02:51 Temperature Pulse Rate 96 H 95 H 92 H Respiratory 17 15 17 Rate Blood Pressure 131/78 131/78 131/78 O2 Sat by Pulse 95 96 96 Oximetry 05/27/21 05/27/21 05/27/21 03:01 03:11 03:21 Temperature 98.2 F Pulse Rate 104 H 93 H 95 H Respiratory 26 H 18 21 Rate Blood Pressure 131/78 131/78 136/76 O2 Sat by Pulse 95 95 95 Oximetry 05/27/21 05/27/21 05/27/21 03:30 03:41 03:51 Temperature Pulse Rate 93 H 107 H 100 H Respiratory 21 21 22 Rate Blood Pressure 132/77 132/77 132/77 O2 Sat by Pulse 95 95 95 Oximetry 05/27/21 05/27/21 05/27/21 04:00 04:11 04:21 Temperature Pulse Rate 92 H 89 91 H Respiratory 21 20 23 Rate Blood Pressure 140/76 132/77 132/77 O2 Sat by Pulse 97 96 96 Oximetry 05/27/21 05/27/21 05/27/21 04:30 04:41 04:51 Temperature Pulse Rate 89 87 88 Respiratory 19 17 17 Rate Blood Pressure 139/65 139/65 139/65 O2 Sat by Pulse 94 93 93 Oximetry 05/27/21 05/27/21 05/27/21 05:00 05:11 05:21 Temperature Pulse Rate 89 86 88 Respiratory 16 15 15 Rate Blood Pressure 140/66 139/65 139/65 O2 Sat by Pulse 94 96 95 Oximetry 05/27/21 05/27/21 05/27/21 05:30 05:41 05:51 Temperature Pulse Rate 87 85 84 Respiratory 16 14 13 Rate Blood Pressure 149/75 149/75 149/75 O2 Sat by Pulse 95 96 96 Oximetry 05/27/21 05/27/21 05/27/21 06:00 06:11 06:21 Temperature Pulse Rate 82 86 86 Respiratory 14 15 14 Rate Blood Pressure 138/75 138/75 138/75 O2 Sat by Pulse 94 96 96 Oximetry 05/27/21 05/27/21 05/27/21 06:30 06:41 06:51 Temperature Pulse Rate 88 85 86 Respiratory 13 14 12 Rate Blood Pressure 145/78 145/78 145/78 O2 Sat by Pulse 94 97 97 Oximetry 05/27/21 05/27/21 05/27/21 07:00 07:11 07:21 Temperature 97.7 F Pulse Rate 83 85 82 Respiratory 12 15 14 Rate Blood Pressure 145/82 145/82 145/82 O2 Sat by Pulse 96 97 97 Oximetry 05/27/21 05/27/21 05/27/21 07:23 07:31 07:41 Temperature Pulse Rate 103 H 84 Respiratory 16 14 Rate Blood Pressure 145/82 129/62 129/62 O2 Sat by Pulse 90 96 Oximetry 05/27/21 05/27/21 05/27/21 07:51 08:00 08:01 Temperature Pulse Rate 85 111 H 85 Respiratory 14 15 Rate Blood Pressure 129/62 140/78 O2 Sat by Pulse 98 96 Oximetry 05/27/21 05/27/21 05/27/21 08:11 08:21 08:30 Temperature Pulse Rate 85 84 86 Respiratory 13 13 12 Rate Blood Pressure 140/78 140/78 136/79 O2 Sat by Pulse 98 97 96 Oximetry 05/27/21 05/27/21 05/27/21 08:41 08:51 09:00 Temperature Pulse Rate 87 107 H 87 Respiratory 15 20 16 Rate Blood Pressure 136/79 136/79 150/91 O2 Sat by Pulse 97 96 95 Oximetry 05/27/21 05/27/21 05/27/21 09:11 09:21 09:30 Temperature Pulse Rate 86 88 92 H Respiratory 17 21 Rate Blood Pressure 150/91 150/91 150/91 O2 Sat by Pulse 97 97 97 Oximetry 05/27/21 05/27/21 05/27/21 09:41 09:51 10:00 Temperature Pulse Rate 90 95 H 90 Respiratory Rate Blood Pressure 150/91 150/91 150/74 O2 Sat by Pulse 96 95 96 Oximetry 05/27/21 05/27/21 05/27/21 10:10 10:21 10:31 Temperature Pulse Rate 91 H 92 H 89 Respiratory Rate Blood Pressure 150/74 150/74 150/74 O2 Sat by Pulse 95 97 97 Oximetry 05/27/21 05/27/21 05/27/21 10:41 10:50 11:00 Temperature Pulse Rate 82 92 H 90 Respiratory 23 19 Rate Blood Pressure 150/74 150/74 131/74 O2 Sat by Pulse 98 96 95 Oximetry 05/27/21 05/27/21 05/27/21 11:10 11:21 11:31 Temperature Pulse Rate 103 H 90 91 H Respiratory 23 18 19 Rate Blood Pressure 150/74 131/74 131/74 O2 Sat by Pulse 97 97 97 Oximetry 05/27/21 05/27/21 11:41 11:51 Temperature Pulse Rate 102 H 102 H Respiratory 15 25 H Rate Blood Pressure 131/74 131/74 O2 Sat by Pulse 97 97 Oximetry Constitutional: no acute distress, alert, appears uncomfortable Ascultation: Bilateral: rales Percussion: Bilateral: not dull Cardiovascular: other (sinus tach) Gastrointestinal: normoactive bowel sounds, soft CBC and BMP: 05/26/21 06:10 05/26/21 06:10 ABG, PT/INR, D-dimer: ABG ABG pH 7.343 (7.320-7.450) 05/24/21 20:48 POC ABG pCO2 42.9 mmHg (32.0-48.0) 05/24/21 20:48 POC ABG pO2 136.5 mmHg (83-108) H 05/24/21 20:48 POC ABG HCO3 22.8 05/24/21 20:48 ABG O2 Saturation 98.6 (0-100) 05/24/21 20:48 PT/INR, D-dimer PT 20.2 Sec. (12.2-14.9) H 05/23/21 17:37 INR 1.66 (0.87-1.13) H 05/23/21 17:37 Abnormal lab findings: Abnormal Labs 05/23/21 05/23/21 05/23/21 17:37 17:37 17:37 WBC Hgb MCHC RDW 19.3 H Lymph % (Auto) Lymph # (Auto) Seg Neutrophils % Seg Neuts % (Manual) 86.0 H Lymphocytes % (Manual) 10.0 L Seg Neutrophils # Man Lymphocytes # (Manual) 0.7 L PT 20.2 H INR 1.66 H POC ABG pO2 ABG Sodium ABG Glucose Sodium Chloride BUN Creatinine Glucose 120 H POC Glucose Lactic Acid Calcium Magnesium Ammonia Troponin T 0.030 H NT-Pro-B Natriuret Pep HDL Cholesterol 67 H Arterial Blood Glucose Arterial Blood Ionized Calcium Urine Creatinine 05/23/21 05/23/21 05/23/21 17:37 20:01 23:17 WBC Hgb MCHC RDW Lymph % (Auto) Lymph # (Auto) Seg Neutrophils % Seg Neuts % (Manual) Lymphocytes % (Manual) Seg Neutrophils # Man Lymphocytes # (Manual) PT INR POC ABG pO2 ABG Sodium ABG Glucose Sodium Chloride BUN Creatinine Glucose POC Glucose Lactic Acid 7.00 H* Calcium Magnesium Ammonia Troponin T 0.031 H NT-Pro-B Natriuret Pep 3136 H HDL Cholesterol Arterial Blood Glucose Arterial Blood Ionized Calcium Urine Creatinine 05/23/21 05/24/21 05/24/21 23:29 03:01 03:01 WBC Hgb MCHC RDW 19.4 H Lymph % (Auto) 5.2 L Lymph # (Auto) 0.3 L Seg Neutrophils % 88.1 H Seg Neuts % (Manual) Lymphocytes % (Manual) Seg Neutrophils # Man Lymphocytes # (Manual) PT INR POC ABG pO2 ABG Sodium ABG Glucose Sodium Chloride BUN Creatinine 1.7 H D Glucose 342 H POC Glucose Lactic Acid 4.90 H* Calcium Magnesium Ammonia Troponin T NT-Pro-B Natriuret Pep HDL Cholesterol Arterial Blood Glucose Arterial Blood Ionized Calcium Urine Creatinine 05/24/21 05/24/21 05/25/21 03:01 20:48 02:45 WBC Hgb 11.6 L MCHC RDW 19.0 H Lymph % (Auto) Lymph # (Auto) Seg Neutrophils % Seg Neuts % (Manual) 95.0 H Lymphocytes % (Manual) 1.0 L Seg Neutrophils # Man 9.5 H Lymphocytes # (Manual) 0.1 L PT INR POC ABG pO2 136.5 H ABG Sodium 130.6 L ABG Glucose 141 H Sodium Chloride BUN Creatinine 1.6 H Glucose 199 H POC Glucose Lactic Acid Calcium 8.2 L Magnesium Ammonia Troponin T NT-Pro-B Natriuret Pep HDL Cholesterol Arterial Blood Glucose 141 H Arterial Blood Ionized Calcium 4.0 L Urine Creatinine 05/25/21 05/25/21 05/25/21 02:45 13:18 17:56 WBC Hgb MCHC RDW Lymph % (Auto) Lymph # (Auto) Seg Neutrophils % Seg Neuts % (Manual) Lymphocytes % (Manual) Seg Neutrophils # Man Lymphocytes # (Manual) PT INR POC ABG pO2 ABG Sodium ABG Glucose Sodium 135 L Chloride 92.2 L BUN 22 H Creatinine 1.7 H Glucose POC Glucose 112 H 116 H Lactic Acid Calcium 8.2 L Magnesium Ammonia Troponin T NT-Pro-B Natriuret Pep HDL Cholesterol Arterial Blood Glucose Arterial Blood Ionized Calcium Urine Creatinine 05/25/21 05/25/21 05/26/21 18:00 23:07 05:40 WBC Hgb MCHC RDW Lymph % (Auto) Lymph # (Auto) Seg Neutrophils % Seg Neuts % (Manual) Lymphocytes % (Manual) Seg Neutrophils # Man Lymphocytes # (Manual) PT INR POC ABG pO2 ABG Sodium ABG Glucose Sodium Chloride BUN Creatinine Glucose POC Glucose 129 H 151 H Lactic Acid Calcium Magnesium Ammonia Troponin T NT-Pro-B Natriuret Pep HDL Cholesterol Arterial Blood Glucose Arterial Blood Ionized Calcium Urine Creatinine 85.3 H 05/26/21 05/26/21 05/26/21 06:10 06:10 11:53 WBC 12.8 H Hgb 11.7 L MCHC 31 L RDW 19.5 H Lymph % (Auto) Lymph # (Auto) Seg Neutrophils % Seg Neuts % (Manual) Lymphocytes % (Manual) Seg Neutrophils # Man Lymphocytes # (Manual) PT INR POC ABG pO2 ABG Sodium ABG Glucose Sodium Chloride BUN 45 H Creatinine 1.8 H Glucose 149 H POC Glucose Lactic Acid Calcium 7.9 L Magnesium 2.40 H Ammonia 14.0 L Troponin T NT-Pro-B Natriuret Pep HDL Cholesterol Arterial Blood Glucose Arterial Blood Ionized Calcium Urine Creatinine 05/26/21 05/26/21 05/26/21 12:48 17:30 23:39 WBC Hgb MCHC RDW Lymph % (Auto) Lymph # (Auto) Seg Neutrophils % Seg Neuts % (Manual) Lymphocytes % (Manual) Seg Neutrophils # Man Lymphocytes # (Manual) PT INR POC ABG pO2 ABG Sodium ABG Glucose Sodium Chloride BUN Creatinine Glucose POC Glucose 137 H 179 H 177 H Lactic Acid Calcium Magnesium Ammonia Troponin T NT-Pro-B Natriuret Pep HDL Cholesterol Arterial Blood Glucose Arterial Blood Ionized Calcium Urine Creatinine 05/27/21 05/27/21 05:23 11:31 WBC Hgb MCHC RDW Lymph % (Auto) Lymph # (Auto) Seg Neutrophils % Seg Neuts % (Manual) Lymphocytes % (Manual) Seg Neutrophils # Man Lymphocytes # (Manual) PT INR POC ABG pO2 ABG Sodium ABG Glucose Sodium Chloride BUN Creatinine Glucose POC Glucose 180 H 169 H Lactic Acid Calcium Magnesium Ammonia Troponin T NT-Pro-B Natriuret Pep HDL Cholesterol Arterial Blood Glucose Arterial Blood Ionized Calcium Urine Creatinine
--- NOTE | 2021-05-27 12:06 | Progress Note ---
<DIXON GUTIERRES - Last Filed: 05/27/21 15:43> Assessment and Plan Assessment and plan: This is an 75-year-old female with COPD on home oxygen of 2.5 L and HTN who was admitted for COPD exacerbation,, acute exacerbation of chronic CHF and to rule out ACS Neuro: Generalized anxiety, ? EtOH abuse -Patient awake/alert/orientated x3 -cooperative -Avoid delirium -Reorientation as needed -CIWA protocol PRN -Requip -As needed Xanax -CTH normal -PRN pain meds/tylenol -home bere resumed today - takes for neuropathic BLE pain at home -OOB today -no focal deficit but with generalized weakness Cardio: r/o ACS, acute on chronic exacerbation of CHF, NSTEMI; afib -Cardiology consulted, appreciate recommendations -Echocardiogram completed on 05/23 shows LVEF of 55 to 60%, mild LVH, normal biventricular function-see report -Aspirin, Lipitor, Lasix (dose reduced to qday) -Hydralazine, as needed hydralazine, as needed nitroglycerin -Blood pressure monitoring per protocol -Amio gtt- per cards for afib -afib CVR; occ PVC's- following electrolytes -cards following Respiratory: Acute on chronic hypoxic respiratory failure, COPD exacerbation -S/p BiPAP therapy currently on nasal cannula -SPO2 monitoring per protocol -Pulmonary hygiene -CCM consulted, appreciate recommendations -NC on NC 2.5L at home -continue nebs GI: dysphagia speech following; hx gerd -ST following -cleared for mechanical and nector thick diet per speech -BR: senna -PPI- homemed : Acute kidney injury -Strict intake and output -daily lasix -Trend BMP -24 hours neg 138 ml -Cr downtrending continue to follow -AM labs ordered Endo: NAD -Avoid hypoglycemia -BG q6h -SSI PRN Heme: on coumadin at home -Heparin subq VTE on home coumadin in afib currently -SCDs to BLE -Trend CBC -Transfuse for hbg <7 ID: a/c copd ae with URI -Trend CBC -ceftriaxone for URI -solumedrol Q8h The high probability of a clinically significant, sudden or life threatening deterioration of the [neuro/resp] system(s) required my full and direct attention, intervention and personal management. The aggregate critical care time was [30] minutes. This time is in addition to time spent performing reported procedures but includes the following: [x] Data Review and interpretation [x] Patient assessment and monitoring of vital signs [x] Documentation [x] Medication orders and management This is a 75-year-old male with COPD on home oxygen of 2.5 L, nicotine abuse and HTN who presents to the emergency department 05/23 because of mild orthopnea and nagging cough for 1 day and substernal chest pain described as tightness in nature. Work-up in the emergency department revealed proBNP of 3136, troponin 0 0.03 and CXR showed bibasilar segmental atelectasis/scarring with patchy parenchymal disease in the right lower lung base. Patient was admitted to the hospitalist service with acute exacerbation of chronic congestive heart failure, rule out ACS, COPD exacerbation consults to cardiology and eventually pulmonology was consulted due to acute respiratory distress. 05/24: Was on 2 L nasal cannula and awake, alert and oriented without any acute distress in the a.m. when examined by the hospitalist however around 1900 code met was called as the patient was very short of breath and hypertensive with a blood pressure of 200/110, tachycardia into the 170s and very agitated and restless. He was also wheezing. Patient was given IV hydralazine, IV Cardizem and started on a Cardizem drip and transferred to the ICU on BiPAP therapy. CCM was consulted. 05/25: Patient weaned to NC from BiPAP this morning. Weaning Precedex as tolerated. AM labs 05/26: Patient had moments of lucidity and followed by AMS. Patient failed bedside swallow overngith so ST eval ordered. CT head shows no acute intercranial abnomality. Patient is alert and orientated. Santos removed. 05/27 gisell overnight speech to see today Disposition Plan: ICU Total Time Spent with Patient (Minutes): 30 History Interval history: no acute events Hospitalist Physical - Constitutional Vitals: Temp Pulse Resp BP Pulse Ox 98.0 F 102 H 25 H 131/74 97 05/27/21 12:00 05/27/21 11:51 05/27/21 11:51 05/27/21 11:51 05/27/21 11:51 General appearance: Present: no acute distress, well-nourished, other (On 2 L nasal cannula oxygen) - EENT Eyes: Present: PERRL ENT: clear oral mucosa - Neck Neck: Present: supple - Respiratory Respiratory effort: normal - Cardiovascular Rhythm: regular Heart Sounds: Present: S1 & S2 - Extremities Extremities: no ischemia Extremity abnormal: edema Peripheral Pulses: within normal limits - Abdominal General gastrointestinal: deferred - Integumentary Integumentary: Present: clear, warm, dry - Psychiatric Psychiatric: appropriate mood/affect - Allied Health Allied health notes reviewed: nursing, RT, social work, case management HEART Score - HEART Score EKG: Non-specific Age: > 65 Risk factors: 1-2 risk factors Troponin: Troponin T 0.023 ng/mL (0.00-0.029) 05/24/21 04:58 Troponin: 1-3x normal limit Results - Labs CBC & Chem 7: 05/27/21 13:37 05/27/21 13:37 Labs: Laboratory Last Values WBC 12.8 K/mm3 (4.5-11.0) H 05/26/21 06:10 RBC 4.26 M/mm3 (3.65-5.03) 05/26/21 06:10 Hgb 11.7 gm/dl (11.8-15.2) L 05/26/21 06:10 Hct 37.3 % (35.5-45.6) 05/26/21 06:10 MCV 88 fl (84-94) 05/26/21 06:10 MCH 28 pg (28-32) 05/26/21 06:10 MCHC 31 % (32-34) L 05/26/21 06:10 RDW 19.5 % (13.2-15.2) H 05/26/21 06:10 Plt Count 305 K/mm3 (140-440) 05/26/21 06:10 Lymph % (Auto) 5.2 % (13.4-35.0) L 05/24/21 03:01 Tripp % (Auto) 6.6 % (0.0-7.3) 05/24/21 03:01 Eos % (Auto) 0.0 % (0.0-4.3) 05/24/21 03:01 Baso % (Auto) 0.1 % (0.0-1.8) 05/24/21 03:01 Lymph # (Auto) 0.3 K/mm3 (1.2-5.4) L 05/24/21 03:01 Tripp # (Auto) 0.4 K/mm3 (0.0-0.8) 05/24/21 03:01 Eos # (Auto) 0.0 K/mm3 (0.0-0.4) 05/24/21 03:01 Baso # (Auto) 0.0 K/mm3 (0.0-0.1) 05/24/21 03:01 Add Manual Diff Complete 05/25/21 02:45 Total Counted 100 05/25/21 02:45 Seg Neutrophils % Pressure Tester 05/25/21 02:45 Seg Neuts % (Manual) 95.0 % (40.0-70.0) H 05/25/21 02:45 Lymphocytes % (Manual) 1.0 % (13.4-35.0) L 05/25/21 02:45 Monocytes % (Manual) 4.0 % (0.0-7.3) 05/25/21 02:45 Nucleated RBC % Not Reportable 05/25/21 02:45 Seg Neutrophils # 5.2 K/mm3 (1.8-7.7) 05/24/21 03:01 Seg Neutrophils # Man 9.5 K/mm3 (1.8-7.7) H 05/25/21 02:45 Band Neutrophils # 0.0 K/mm3 05/25/21 02:45 Lymphocytes # (Manual) 0.1 K/mm3 (1.2-5.4) L 05/25/21 02:45 Abs React Lymphs (Man) 0.0 K/mm3 05/25/21 02:45 Monocytes # (Manual) 0.4 K/mm3 (0.0-0.8) 05/25/21 02:45 Eosinophils # (Manual) 0.0 K/mm3 (0.0-0.4) 05/25/21 02:45 Basophils # (Manual) 0.0 K/mm3 (0.0-0.1) 05/25/21 02:45 Metamyelocytes # 0.0 K/mm3 05/25/21 02:45 Myelocytes # 0.0 K/mm3 05/25/21 02:45 Promyelocytes # 0.0 K/mm3 05/25/21 02:45 Blast Cells # 0.0 K/mm3 05/25/21 02:45 WBC Morphology Not Reportable 05/25/21 02:45 Hypersegmented Neuts Not Reportable 05/25/21 02:45 Hyposegmented Neuts Not Reportable 05/25/21 02:45 Hypogranular Neuts Not Reportable 05/25/21 02:45 Smudge Cells Not Reportable 05/25/21 02:45 Toxic Granulation Not Reportable 05/25/21 02:45 Toxic Vacuolation Not Reportable 05/25/21 02:45 Dohle Bodies Not Reportable 05/25/21 02:45 Pelger-Huet Anomaly Not Reportable 05/25/21 02:45 Fabricio Rods Not Reportable 05/25/21 02:45 Platelet Estimate Consistent w auto 05/25/21 02:45 Clumped Platelets Not Reportable 05/25/21 02:45 Plt Clumps, EDTA Not Reportable 05/25/21 02:45 Large Platelets Not Reportable 05/25/21 02:45 Giant Platelets Not Reportable 05/25/21 02:45 Platelet Satelliting Not Reportable 05/25/21 02:45 Plt Morphology Comment Not Reportable 05/25/21 02:45 RBC Morphology Not Reportable 05/25/21 02:45 Dimorphic RBCs Not Reportable 05/25/21 02:45 Polychromasia Not Reportable 05/25/21 02:45 Hypochromasia Not Reportable 05/25/21 02:45 Poikilocytosis Not Reportable 05/25/21 02:45 Anisocytosis 1+ 05/25/21 02:45 Microcytosis Not Reportable 05/25/21 02:45 Macrocytosis Not Reportable 05/25/21 02:45 Spherocytes Not Reportable 05/25/21 02:45 Pappenheimer Bodies Not Reportable 05/25/21 02:45 Sickle Cells Not Reportable 05/25/21 02:45 Target Cells Not Reportable 05/25/21 02:45 Tear Drop Cells Not Reportable 05/25/21 02:45 Ovalocytes Not Reportable 05/25/21 02:45 Helmet Cells Not Reportable 05/25/21 02:[address] [place] Bodies Not Reportable 05/25/21 02:45 [place] Rings Not Reportable 05/25/21 02:45 Elizabeth Cells Not Reportable 05/25/21 02:45 Bite Cells Not Reportable 05/25/21 02:45 Crenated Cell Not Reportable 05/25/21 02:45 Elliptocytes Not Reportable 05/25/21 02:45 Acanthocytes (Spur) Not Reportable 05/25/21 02:45 Rouleaux Not Reportable 05/25/21 02:45 Hemoglobin C Crystals Not Reportable 05/25/21 02:45 Schistocytes Not Reportable 05/25/21 02:45 Malaria parasites Not Reportable 05/25/21 02:45 Julio Cesar Bodies Not Reportable 05/25/21 02:45 Hem Pathologist Commnt No 05/25/21 02:45 PT 20.2 Sec. (12.2-14.9) H 05/23/21 17:37 INR 1.66 (0.87-1.13) H 05/23/21 17:37 APTT 32.9 Sec. (24.2-36.6) 05/23/21 17:37 ABG pH 7.343 (7.320-7.450) 05/24/21 20:48 POC ABG pCO2 42.9 mmHg (32.0-48.0) 05/24/21 20:48 POC ABG pO2 136.5 mmHg (83-108) H 05/24/21 20:48 POC ABG HCO3 22.8 05/24/21 20:48 ABG O2 Saturation 98.6 (0-100) 05/24/21 20:48 POC ABG Base Excess -2.9 05/24/21 20:48 ABG Hemoglobin 13.0 (12.0-17.5) 05/24/21 20:48 ABG Oxyhemoglobin 97.6 (94-98) 05/24/21 20:48 ABG Methemoglobin 0.3 (0.0-1.5) 05/24/21 20:48 ABG Sodium 130.6 mmol/L (136.0-145.0) L 05/24/21 20:48 ABG Potassium 4.2 mmol/L (3.40-4.50) 05/24/21 20:48 ABG Chloride 100.0 mmol/L (98-107) 05/24/21 20:48 ABG Glucose 141 mg/dL (65-95) H 05/24/21 20:48 Carboxyhemoglobin 0.7 (0.5-1.5) 05/24/21 20:48 FiO2 % 100.0 05/24/21 20:48 Sodium 140 mmol/L (137-145) 05/26/21 06:10 Potassium 4.3 mmol/L (3.6-5.0) 05/26/21 06:10 Chloride 98.6 mmol/L (98-107) 05/26/21 06:10 Carbon Dioxide 26 mmol/L (22-30) 05/26/21 06:10 Anion Gap 20 mmol/L 05/26/21 06:10 BUN 45 mg/dL (9-20) H 05/26/21 06:10 Creatinine 1.8 mg/dL (0.8-1.3) H 05/26/21 06:10 Estimated GFR 37 ml/min 05/26/21 06:10 BUN/Creatinine Ratio 25 % 05/26/21 06:10 Glucose 149 mg/dL (75-100) H 05/26/21 06:10 POC Glucose 169 mg/dL (70-105) H 05/27/21 11:31 Lactic Acid 1.50 mmol/L (0.7-2.0) 05/24/21 22:55 Calcium 7.9 mg/dL (8.4-10.2) L 05/26/21 06:10 Phosphorus 4.50 mg/dL (2.5-4.5) 05/26/21 06:10 Magnesium 2.40 mg/dL (1.7-2.3) H 05/26/21 06:10 Total Bilirubin 0.50 mg/dL (0.1-1.2) 05/25/21 02:45 AST 36 units/L (5-40) 05/25/21 02:45 ALT 13 units/L (7-56) 05/25/21 02:45 Alkaline Phosphatase 60 units/L (35-129) 05/25/21 02:45 Ammonia 14.0 umol/L (25-60) L 05/26/21 11:53 Troponin T 0.023 ng/mL (0.00-0.029) 05/24/21 04:58 NT-Pro-B Natriuret Pep 3136 pg/mL (0-900) H 05/23/21 17:37 Total Protein 6.8 g/dL (6.3-8.2) 05/25/21 02:45 Albumin 3.9 g/dL (3.9-5) 05/25/21 02:45 Albumin/Globulin Ratio 1.3 % 05/25/21 02:45 Triglycerides 93 mg/dL (2-149) 05/23/21 17:37 Cholesterol 140 mg/dL (50-199) 05/23/21 17:37 LDL Cholesterol Direct 63 mg/dL (50-130) 05/23/21 17:37 HDL Cholesterol 67 mg/dL (40-59) H 05/23/21 17:37 Cholesterol/HDL Ratio 2.08 % 05/23/21 17:37 Arterial Blood Glucose 141 mg/dL (65-95) H 05/24/21 20:48 Arterial Blood Ionized Calcium 4.0 mg/dL (4.6-5.3) L 05/24/21 20:48 Urine Osmolality 353 Mosm/kg 05/25/21 18:00 Urine Creatinine 85.3 mg/dL (0.1-20.0) H 05/25/21 18:00 Urine Sodium 25 mmol/L 05/25/21 18:00 Urine Potassium 58.93 mmol/L 05/25/21 18:00 Microbiology: Microbiology 05/23/21 17:37 Peripheral/Venous Blood Culture - Preliminary NO GROWTH AFTER 72 HOURS 05/23/21 17:37 Peripheral/Venous Blood Culture - Preliminary NO GROWTH AFTER 72 HOURS Santos/IV: Voiding Method Urinal Active Medications - Current Medications Current Medications: Generic Name Dose Route Start Last Admin Trade Name Freq PRN Reason Stop Dose Admin Acetaminophen 650 mg 05/23/21 23:17 Acetaminophen 325 Mg Tab PO Q6H PRN Pain, Mild (1-3) Albuterol/Ipratropium 1 ampul 05/25/21 14:00 05/26/21 19:12 Ipratropium/Albuterol Sulfate 3 Ml Ampul.Neb IH 1 ampul TIDRT THERON Administration Alprazolam 0.5 mg 05/24/21 18:53 Alprazolam 0.5 Mg Tab PO Q8H PRN Anxiety Aspirin 81 mg 05/26/21 10:00 05/27/21 10:47 Aspirin 81 Mg Tab Chew PO 81 mg QDAY THERON Administration Atorvastatin Calcium 40 mg 05/24/21 22:00 05/26/21 21:17 Atorvastatin 40 Mg Tab PO 40 mg QHS THERON Administration Budesonide 0.5 mg 05/24/21 20:00 05/26/21 19:12 Budesonide 0.5 Mg/2 Ml Nebu IH 0.5 mg Q12HRT THERON Administration Cetirizine HCl 10 mg 05/24/21 12:00 05/27/21 10:47 Cetirizine 10 Mg Tab PO 10 mg QDAY THERON Administration Dextrose 50 ml 05/25/21 09:30 Dextrose 50% In Water (25gm) 50 Ml Syringe IV Q30MIN PRN Hypoglycemia Protocol Famotidine 20 mg 05/24/21 11:00 05/27/21 10:47 Famotidine 20 Mg Tab PO 20 mg DAILY THERON Administration Furosemide 40 mg 05/27/21 06:00 05/27/21 07:20 Furosemide 40 Mg/4 Ml Inj IV 40 mg DAILY@0600 THERON Administration Heparin Sodium (Porcine) 5,000 unit 05/24/21 06:00 05/27/21 07:20 Heparin 5,000 Unit/1 Ml Vial SUB-Q 5,000 unit Q8HR THERON Administration Hydralazine HCl 10 mg 05/23/21 23:30 05/24/21 18:02 Hydralazine 20 Mg/1 Ml Inj IV 10 mg Q6H PRN Administration SBP >/=165; DBP >/=100 Hydralazine HCl 50 mg 05/24/21 20:00 05/27/21 07:23 Hydralazine 25 Mg Tab PO 50 mg Q8HR THERON Administration Ceftriaxone Sodium 1 gm in 50 mls @ 100 mls/hr 05/24/21 01:00 05/27/21 01:19 Rocephin/Ns 1 Gm/50 Ml IV 05/28/21 01:29 100 mls/hr Q24H THERON Administration Protocol Amiodarone HCl 900 mg/ 500 mls @ 33.333 mls/hr 05/25/21 22:00 05/26/21 20:42 Dextrose IV 0.5 mg/min DIRECT THERON 16.667 mls/hr Administration Protocol 1 MG/MIN Insulin Human Regular 0 units 05/25/21 09:00 Insulin Regular, Human 100 Units/1 Ml SUB-Q Q6H PRN Hyperglycemia Protocol Levalbuterol HCl 0.63 mg 05/24/21 19:52 05/26/21 03:28 Levalbuterol 0.63 Mg/3 Ml Nebu IH 0.63 mg Q6H PRN Administration Shortness Of Breath Methylprednisolone Sodium Succinate 125 mg 05/24/21 20:00 05/27/21 03:13 Methylprednisolone Sod Succinate 125 Mg/2 Ml Inj IV 125 mg Q8H THERON Administration Nitroglycerin 0.4 mg 05/23/21 23:17 Nitroglycerin 0.4 Mg Tab Subl SL Q5M PRN Chest Pain Ondansetron HCl 4 mg 05/23/21 23:17 Ondansetron 4 Mg/2 Ml Inj IV Q8H PRN Nausea And Vomiting Oxycodone/Acetaminophen 1 tab 05/23/21 23:17 05/24/21 04:18 Oxycodone /Acetaminophen 5-325mg Tab PO 1 tab Q6H PRN Administration Pain, Moderate (4-6) Pseudoephedrine/Acetam/Chlorphenir 7.5 ml 05/26/21 20:10 05/27/21 03:13 Guaifenesin/Codeine 100-10mg Oral Liqd 5 Ml PO 7.5 ml Q4H PRN Administration Cough Ropinirole HCl 1 mg 05/24/21 22:00 05/26/21 21:17 Ropinirole 1 Mg Tab PO 1 mg QHS THERON Administration Senna 17.2 mg 05/25/21 22:00 05/26/21 21:17 Sennosides 8.6 Mg Tab PO 17.2 mg QHS THERON Administration Sodium Chloride 10 ml 05/24/21 10:00 05/26/21 21:17 Sodium Chloride 0.9% 10 Ml Flush Syringe IV 10 ml BID THERON Administration Sodium Chloride 10 ml 05/23/21 23:17 Sodium Chloride 0.9% 10 Ml Flush Syringe IV PRN PRN LINE FLUSH Nutrition/Malnutrition Assess - Dietary Evaluation Nutrition/Malnutrition Findings: Nutrition Notes Start: 05/25/21 11:30 Freq: Status: Active Protocol: Document 05/27/21 09:12 MIRANDA (Rec: 05/27/21 09:21 [facility] [id number]) Nutrition Notes Need for Assessment generated from: MD Order Initial or Follow up Reassessment Current Diagnosis COPD,Hypertension,Heart Failure Other Pertinent Diagnosis Exacerbation of COPD and CHF, r/o ACS Current Diet NPO Labs/Tests Reviewed Pertinent Medications Lasix Height 5 ft 6 in Weight 91.6 kg [place] Body Weight (kg) 64.54 BMI 32.5 Weight Status Obese Subjective/Other Information RD consulted for TF. Per RN note yesterday, pt able to swallow water, however, JEANETTE tripp ordered to confirm safe swallow. Burn Absent Trauma Absent #1 Nutrition Diagnosis Predicted suboptimal energy intake,Inadequate oral intake Comments: CHANGED Etiology CHF/COPD exacerbation As Evidenced by Signs and Symptoms pt NPO Is patient on ventilator? No Is Patient Ambulatory and/or Out of Bed No REE-([facility]-confined to bed) 1918.596 Kcal/Kg value to use for calculation 20 Approximate Energy Requirements Using 1832 kcal/Kg Calculation Used for Recommendations Kcal/kg Additional Notes Pro needs 2g/kg IBW: 129g/day Fluid needs 1ml/kcal Nutrition Intervention Change Diet Order: Advance diet when medically feasible Nutrition Support: If necessary, recommended TF formula is Promote at 75ml/hr with 50ml water flush q4h. Goal #1 Either advance diet or start EN support to meet nutrient needs Anticipated Discharge Needs: Unable to identify at this time Follow-Up By: 05/29/21 Additional Comments F/U: [employer] josee, diet advancement vs need for TF, resp status - Attestation Statement I have reviewed and agreed w/ Malnutrition eval & tx plan: Yes <SENTHIL WARNER - Last Filed: 05/27/21 16:52> Hospitalist Physical - Constitutional Vitals: Temp Pulse Resp BP Pulse Ox 97.5 F L 88 25 H 122/72 95 05/27/21 15:23 05/27/21 16:00 05/27/21 11:51 05/27/21 16:00 05/27/21 16:00 HEART Score - HEART Score Troponin: Troponin T 0.023 ng/mL (0.00-0.029) 05/24/21 04:58 Results - Labs CBC & Chem 7: 05/27/21 13:37 05/27/21 13:37 Labs: Laboratory Last Values WBC 11.7 K/mm3 (4.5-11.0) H 05/27/21 13:37 RBC 4.32 M/mm3 (3.65-5.03) 05/27/21 13:37 Hgb 12.0 gm/dl (11.8-15.2) 05/27/21 13:37 Hct 37.6 % (35.5-45.6) 05/27/21 13:37 MCV 87 fl (84-94) 05/27/21 13:37 MCH 28 pg (28-32) 05/27/21 13:37 MCHC 32 % (32-34) 05/27/21 13:37 RDW 18.8 % (13.2-15.2) H 05/27/21 13:37 Plt Count 211 K/mm3 (140-440) 05/27/21 13:37 Lymph % (Auto) 5.2 % (13.4-35.0) L 05/24/21 03:01 Tripp % (Auto) 6.6 % (0.0-7.3) 05/24/21 03:01 Eos % (Auto) 0.0 % (0.0-4.3) 05/24/21 03:01 Baso % (Auto) 0.1 % (0.0-1.8) 05/24/21 03:01 Lymph # (Auto) 0.3 K/mm3 (1.2-5.4) L 05/24/21 03:01 Tripp # (Auto) 0.4 K/mm3 (0.0-0.8) 05/24/21 03:01 Eos # (Auto) 0.0 K/mm3 (0.0-0.4) 05/24/21 03:01 Baso # (Auto) 0.0 K/mm3 (0.0-0.1) 05/24/21 03:01 Add Manual Diff Complete 05/25/21 02:45 Total Counted 100 05/25/21 02:45 Seg Neutrophils % Pressure Tester 05/25/21 02:45 Seg Neuts % (Manual) 95.0 % (40.0-70.0) H 05/25/21 02:45 Lymphocytes % (Manual) 1.0 % (13.4-35.0) L 05/25/21 02:45 Monocytes % (Manual) 4.0 % (0.0-7.3) 05/25/21 02:45 Nucleated RBC % Not Reportable 05/25/21 02:45 Seg Neutrophils # 5.2 K/mm3 (1.8-7.7) 05/24/21 03:01 Seg Neutrophils # Man 9.5 K/mm3 (1.8-7.7) H 05/25/21 02:45 Band Neutrophils # 0.0 K/mm3 05/25/21 02:45 Lymphocytes # (Manual) 0.1 K/mm3 (1.2-5.4) L 05/25/21 02:45 Abs React Lymphs (Man) 0.0 K/mm3 05/25/21 02:45 Monocytes # (Manual) 0.4 K/mm3 (0.0-0.8) 05/25/21 02:45 Eosinophils # (Manual) 0.0 K/mm3 (0.0-0.4) 05/25/21 02:45 Basophils # (Manual) 0.0 K/mm3 (0.0-0.1) 05/25/21 02:45 Metamyelocytes # 0.0 K/mm3 05/25/21 02:45 Myelocytes # 0.0 K/mm3 05/25/21 02:45 Promyelocytes # 0.0 K/mm3 05/25/21 02:45 Blast Cells # 0.0 K/mm3 05/25/21 02:45 WBC Morphology Not Reportable 05/25/21 02:45 Hypersegmented Neuts Not Reportable 05/25/21 02:45 Hyposegmented Neuts Not Reportable 05/25/21 02:45 Hypogranular Neuts Not Reportable 05/25/21 02:45 Smudge Cells Not Reportable 05/25/21 02:45 Toxic Granulation Not Reportable 05/25/21 02:45 Toxic Vacuolation Not Reportable 05/25/21 02:45 Dohle Bodies Not Reportable 05/25/21 02:45 Pelger-Huet Anomaly Not Reportable 05/25/21 02:45 Fabricio Rods Not Reportable 05/25/21 02:45 Platelet Estimate Consistent w auto 05/25/21 02:45 Clumped Platelets Not Reportable 05/25/21 02:45 Plt Clumps, EDTA Not Reportable 05/25/21 02:45 Large Platelets Not Reportable 05/25/21 02:45 Giant Platelets Not Reportable 05/25/21 02:45 Platelet Satelliting Not Reportable 05/25/21 02:45 Plt Morphology Comment Not Reportable 05/25/21 02:45 RBC Morphology Not Reportable 05/25/21 02:45 Dimorphic RBCs Not Reportable 05/25/21 02:45 Polychromasia Not Reportable 05/25/21 02:45 Hypochromasia Not Reportable 05/25/21 02:45 Poikilocytosis Not Reportable 05/25/21 02:45 Anisocytosis 1+ 05/25/21 02:45 Microcytosis Not Reportable 05/25/21 02:45 Macrocytosis Not Reportable 05/25/21 02:45 Spherocytes Not Reportable 05/25/21 02:45 Pappenheimer Bodies Not Reportable 05/25/21 02:45 Sickle Cells Not Reportable 05/25/21 02:45 Target Cells Not Reportable 05/25/21 02:45 Tear Drop Cells Not Reportable 05/25/21 02:45 Ovalocytes Not Reportable 05/25/21 02:45 Helmet Cells Not Reportable 05/25/21 02:[address] [place] Bodies Not Reportable 05/25/21 02:45 [place] Rings Not Reportable 05/25/21 02:45 Elizabeth Cells Not Reportable 05/25/21 02:45 Bite Cells Not Reportable 05/25/21 02:45 Crenated Cell Not Reportable 05/25/21 02:45 Elliptocytes Not Reportable 05/25/21 02:45 Acanthocytes (Spur) Not Reportable 05/25/21 02:45 Rouleaux Not Reportable 05/25/21 02:45 Hemoglobin C Crystals Not Reportable 05/25/21 02:45 Schistocytes Not Reportable 05/25/21 02:45 Malaria parasites Not Reportable 05/25/21 02:45 Julio Cesar Bodies Not Reportable 05/25/21 02:45 Hem Pathologist Commnt No 05/25/21 02:45 PT 20.2 Sec. (12.2-14.9) H 05/23/21 17:37 INR 1.66 (0.87-1.13) H 05/23/21 17:37 APTT 32.9 Sec. (24.2-36.6) 05/23/21 17:37 ABG pH 7.343 (7.320-7.450) 05/24/21 20:48 POC ABG pCO2 42.9 mmHg (32.0-48.0) 05/24/21 20:48 POC ABG pO2 136.5 mmHg (83-108) H 05/24/21 20:48 POC ABG HCO3 22.8 05/24/21 20:48 ABG O2 Saturation 98.6 (0-100) 05/24/21 20:48 POC ABG Base Excess -2.9 05/24/21 20:48 ABG Hemoglobin 13.0 (12.0-17.5) 05/24/21 20:48 ABG Oxyhemoglobin 97.6 (94-98) 05/24/21 20:48 ABG Methemoglobin 0.3 (0.0-1.5) 05/24/21 20:48 ABG Sodium 130.6 mmol/L (136.0-145.0) L 05/24/21 20:48 ABG Potassium 4.2 mmol/L (3.40-4.50) 05/24/21 20:48 ABG Chloride 100.0 mmol/L (98-107) 05/24/21 20:48 ABG Glucose 141 mg/dL (65-95) H 05/24/21 20:48 Carboxyhemoglobin 0.7 (0.5-1.5) 05/24/21 20:48 FiO2 % 100.0 05/24/21 20:48 Sodium 140 mmol/L (137-145) 05/27/21 13:37 Potassium 4.2 mmol/L (3.6-5.0) 05/27/21 13:37 Chloride 98.4 mmol/L (98-107) 05/27/21 13:37 Carbon Dioxide 33 mmol/L (22-30) H D 05/27/21 13:37 Anion Gap 13 mmol/L 05/27/21 13:37 BUN 49 mg/dL (9-20) H 05/27/21 13:37 Creatinine 1.6 mg/dL (0.8-1.3) H 05/27/21 13:37 Estimated GFR 42 ml/min 05/27/21 13:37 BUN/Creatinine Ratio 31 % 05/27/21 13:37 Glucose 158 mg/dL (75-100) H 05/27/21 13:37 POC Glucose 169 mg/dL (70-105) H 05/27/21 11:31 Lactic Acid 1.50 mmol/L (0.7-2.0) 05/24/21 22:55 Calcium 8.8 mg/dL (8.4-10.2) 05/27/21 13:37 Phosphorus 2.80 mg/dL (2.5-4.5) D 05/27/21 13:37 Magnesium 2.50 mg/dL (1.7-2.3) H 05/27/21 13:37 Total Bilirubin 0.50 mg/dL (0.1-1.2) 05/25/21 02:45 AST 36 units/L (5-40) 05/25/21 02:45 ALT 13 units/L (7-56) 05/25/21 02:45 Alkaline Phosphatase 60 units/L (35-129) 05/25/21 02:45 Ammonia 14.0 umol/L (25-60) L 05/26/21 11:53 Troponin T 0.023 ng/mL (0.00-0.029) 05/24/21 04:58 NT-Pro-B Natriuret Pep 3136 pg/mL (0-900) H 05/23/21 17:37 Total Protein 6.8 g/dL (6.3-8.2) 05/25/21 02:45 Albumin 3.9 g/dL (3.9-5) 05/25/21 02:45 Albumin/Globulin Ratio 1.3 % 05/25/21 02:45 Triglycerides 93 mg/dL (2-149) 05/23/21 17:37 Cholesterol 140 mg/dL (50-199) 05/23/21 17:37 LDL Cholesterol Direct 63 mg/dL (50-130) 05/23/21 17:37 HDL Cholesterol 67 mg/dL (40-59) H 05/23/21 17:37 Cholesterol/HDL Ratio 2.08 % 05/23/21 17:37 Arterial Blood Glucose 141 mg/dL (65-95) H 05/24/21 20:48 Arterial Blood Ionized Calcium 4.0 mg/dL (4.6-5.3) L 05/24/21 20:48 Urine Osmolality 353 Mosm/kg 05/25/21 18:00 Urine Creatinine 85.3 mg/dL (0.1-20.0) H 05/25/21 18:00 Urine Sodium 25 mmol/L 05/25/21 18:00 Urine Potassium 58.93 mmol/L 05/25/21 18:00 Microbiology: Microbiology 05/23/21 17:37 Peripheral/Venous Blood Culture - Preliminary NO GROWTH AFTER 72 HOURS 05/23/21 17:37 Peripheral/Venous Blood Culture - Preliminary NO GROWTH AFTER 72 HOURS Santos/IV: Voiding Method Urinal Active Medications - Current Medications Current Medications: Generic Name Dose Route Start Last Admin Trade Name Freq PRN Reason Stop Dose Admin Acetaminophen 650 mg 05/23/21 23:17 Acetaminophen 325 Mg Tab PO Q6H PRN Pain, Mild (1-3) Albuterol/Ipratropium 1 ampul 05/25/21 14:00 05/26/21 19:12 Ipratropium/Albuterol Sulfate 3 Ml Ampul.Neb IH 1 ampul TIDRT THERON Administration Alprazolam 0.5 mg 05/24/21 18:53 05/27/21 15:47 Alprazolam 0.5 Mg Tab PO 0.5 mg Q8H PRN Administration Anxiety Aspirin 81 mg 05/26/21 10:00 05/27/21 10:47 Aspirin 81 Mg Tab Chew PO 81 mg QDAY THERON Administration Atorvastatin Calcium 40 mg 05/24/21 22:00 05/26/21 21:17 Atorvastatin 40 Mg Tab PO 40 mg QHS THERON Administration Budesonide 0.5 mg 05/24/21 20:00 05/26/21 19:12 Budesonide 0.5 Mg/2 Ml Nebu IH 0.5 mg Q12HRT THERON Administration Cetirizine HCl 10 mg 05/24/21 12:00 05/27/21 10:47 Cetirizine 10 Mg Tab PO 10 mg QDAY THERON Administration Dextrose 50 ml 05/25/21 09:30 Dextrose 50% In Water (25gm) 50 Ml Syringe IV Q30MIN PRN Hypoglycemia Protocol Famotidine 20 mg 05/24/21 11:00 05/27/21 10:47 Famotidine 20 Mg Tab PO 20 mg DAILY THERON Administration Furosemide 40 mg 05/27/21 06:00 05/27/21 07:20 Furosemide 40 Mg/4 Ml Inj IV 40 mg DAILY@0600 THERON Administration Gabapentin 300 mg 05/27/21 16:00 05/27/21 15:55 Gabapentin 300 Mg Cap PO 300 mg Q8H THERON Administration Heparin Sodium (Porcine) 5,000 unit 05/24/21 06:00 05/27/21 15:29 Heparin 5,000 Unit/1 Ml Vial SUB-Q 5,000 unit Q8HR THERON Administration Hydralazine HCl 10 mg 05/23/21 23:30 05/24/21 18:02 Hydralazine 20 Mg/1 Ml Inj IV 10 mg Q6H PRN Administration SBP >/=165; DBP >/=100 Hydralazine HCl 50 mg 05/24/21 20:00 05/27/21 15:29 Hydralazine 25 Mg Tab PO 50 mg Q8HR THERON Administration Ceftriaxone Sodium 1 gm in 50 mls @ 100 mls/hr 05/24/21 01:00 05/27/21 01:19 Rocephin/Ns 1 Gm/50 Ml IV 05/28/21 01:29 100 mls/hr Q24H THERON Administration Protocol Amiodarone HCl 900 mg/ 500 mls @ 33.333 mls/hr 05/25/21 22:00 05/26/21 20:42 Dextrose IV 0.5 mg/min DIRECT THERON 16.667 mls/hr Administration Protocol 1 MG/MIN Insulin Human Regular 0 units 05/25/21 09:00 Insulin Regular, Human 100 Units/1 Ml SUB-Q Q6H PRN Hyperglycemia Protocol Levalbuterol HCl 0.63 mg 05/24/21 19:52 05/26/21 03:28 Levalbuterol 0.63 Mg/3 Ml Nebu IH 0.63 mg Q6H PRN Administration Shortness Of Breath Methylprednisolone Sodium Succinate 125 mg 05/24/21 20:00 05/27/21 15:29 Methylprednisolone Sod Succinate 125 Mg/2 Ml Inj IV 125 mg Q8H THERON Administration Nitroglycerin 0.4 mg 05/23/21 23:17 Nitroglycerin 0.4 Mg Tab Subl SL Q5M PRN Chest Pain Ondansetron HCl 4 mg 05/23/21 23:17 Ondansetron 4 Mg/2 Ml Inj IV Q8H PRN Nausea And Vomiting Oxycodone/Acetaminophen 1 tab 05/23/21 23:17 05/27/21 15:46 Oxycodone /Acetaminophen 5-325mg Tab PO 1 tab Q6H PRN Administration Pain, Moderate (4-6) Pseudoephedrine/Acetam/Chlorphenir 7.5 ml 05/26/21 20:10 05/27/21 03:13 Guaifenesin/Codeine 100-10mg Oral Liqd 5 Ml PO 7.5 ml Q4H PRN Administration Cough Ropinirole HCl 1 mg 05/24/21 22:00 05/26/21 21:17 Ropinirole 1 Mg Tab PO 1 mg QHS THERON Administration Senna 17.2 mg 05/25/21 22:00 05/26/21 21:17 Sennosides 8.6 Mg Tab PO 17.2 mg QHS THERON Administration Sodium Chloride 10 ml 05/24/21 10:00 05/26/21 21:17 Sodium Chloride 0.9% 10 Ml Flush Syringe IV 10 ml BID THERON Administration Sodium Chloride 10 ml 05/23/21 23:17 Sodium Chloride 0.9% 10 Ml Flush Syringe IV PRN PRN LINE FLUSH Nutrition/Malnutrition Assess - Dietary Evaluation Nutrition/Malnutrition Findings: Nutrition Notes Start: 05/25/21 11:30 Freq: Status: Active Protocol: Document 05/27/21 09:12 [facility] (Rec: 05/27/21 09:21 [facility] [id number]) Nutrition Notes Need for Assessment generated from: MD Order Initial or Follow up Reassessment Current Diagnosis COPD,Hypertension,Heart Failure Other Pertinent Diagnosis Exacerbation of COPD and CHF, r/o ACS Current Diet NPO Labs/Tests Reviewed Pertinent Medications Lasix Height 5 ft 6 in Weight 91.6 kg [place] Body Weight (kg) 64.54 BMI 32.5 Weight Status Obese Subjective/Other Information RD consulted for TF. Per RN note yesterday, pt able to swallow water, however, [employer] eval ordered to confirm safe swallow. Burn Absent Trauma Absent #1 Nutrition Diagnosis Predicted suboptimal energy intake,Inadequate oral intake Comments: CHANGED Etiology CHF/COPD exacerbation As Evidenced by Signs and Symptoms pt NPO Is patient on ventilator? No Is Patient Ambulatory and/or Out of Bed No REE-([facility]-confined to bed) 1918.596 Kcal/Kg value to use for calculation 20 Approximate Energy Requirements Using 1832 kcal/Kg Calculation Used for Recommendations Kcal/kg Additional Notes Pro needs 2g/kg IBW: 129g/day Fluid needs 1ml/kcal Nutrition Intervention Change Diet Order: Advance diet when medically feasible Nutrition Support: If necessary, recommended TF formula is Promote at 75ml/hr with 50ml water flush q4h. Goal #1 Either advance diet or start EN support to meet nutrient needs Anticipated Discharge Needs: Unable to identify at this time Follow-Up By: 05/29/21 Additional Comments F/U: [employer] eval, diet advancement vs need for TF, resp status
--- NOTE | 2021-05-27 12:45 | XRay Report ---
CHEST 1 VIEW INDICATION: sob. COMPARISON: Yesterday FINDINGS: Support devices: None. Heart: Stable borderline to mild cardiomegaly. Lungs/Pleura: Stable COPD changes with prominent interstitial markings in the lower lung zones. No pl eural effusion or pneumothorax. Additional findings: None. IMPRESSION: No significant change. Signer Name: Peter Galvan Jr, MD Signed: 05/27/2021 12:41 PM Workstation Name: [id number]
--- NOTE | 2021-05-27 13:48 | Progress Note ---
Assessment and Plan - Patient Problems (1) SOB (shortness of breath) Current Visit: Yes Status: Acute Plan to address problem: Patient admitted with acute exacerbation of his chronic lung disease. Echocardiogram shows normal left ventricle systolic function with ejection fraction 55 to 60%. Tricuspid regurgitation doppler analysis reports the pulmonary artery systolic pressure at within normal limits. (2) Tachycardia Current Visit: Yes Status: Acute Plan to address problem: During his transition from the medical floor to the CCU, he was reported to have had a tachycardia with ventricular rate of 170. He was placed on intravenous diltiazem and amiodarone, but there is no available documentation of his actual rhythm. We will seek a review of all his ECGs and telemetry strips to identify the underlying rhythm for more optimal future management. Subjective Date of service: 05/27/21 Interval history: After his initial admission to the medical floor, the patient was stepped up to the ICU for worsening shortness of breath and COPD exacerbation. He currently looks and feels better. On the school bus monitor, he is currently sinus rhythm at 81. Blood pressure is 150 systolic. During his transition from the medical floor to the CCU, he was reported to have had a tachycardia with ventricular rate of 170. He was placed on intravenous diltiazem and amiodarone, but there is no available documentation of his actual rhythm. Objective Vital Signs Temp Pulse Pulse Pulse Resp Resp BP 05/27/21 12:21 93 H 140/78 05/27/21 12:11 91 H 140/78 05/27/21 12:00 98.0 F 89 140/78 05/27/21 11:51 102 H 25 H 131/74 05/27/21 11:41 102 H 15 131/74 05/27/21 11:31 91 H 19 131/74 05/27/21 11:21 90 18 131/74 05/27/21 11:10 103 H 23 150/74 05/27/21 11:00 90 19 131/74 05/27/21 10:50 92 H 23 150/74 05/27/21 10:41 82 150/74 05/27/21 10:31 89 150/74 05/27/21 10:21 92 H 150/74 05/27/21 10:10 91 H 150/74 05/27/21 10:00 90 150/74 05/27/21 09:51 95 H 150/91 05/27/21 09:41 90 150/91 05/27/21 09:30 92 H 150/91 05/27/21 09:21 88 21 150/91 05/27/21 09:11 86 17 150/91 05/27/21 09:00 87 16 150/91 05/27/21 08:51 107 H 20 136/79 05/27/21 08:41 87 15 136/79 05/27/21 08:30 86 12 136/79 05/27/21 08:21 84 13 140/78 05/27/21 08:11 85 13 140/78 05/27/21 08:01 85 15 140/78 05/27/21 08:00 111 H 111 H 15 05/27/21 07:51 85 14 129/62 05/27/21 07:41 84 14 129/62 05/27/21 07:31 103 H 16 129/62 05/27/21 07:23 145/82 05/27/21 07:21 82 14 145/82 05/27/21 07:11 85 15 145/82 05/27/21 07:00 97.7 F 83 12 145/82 05/27/21 06:51 86 12 145/78 05/27/21 06:41 85 14 145/78 05/27/21 06:30 88 13 145/78 05/27/21 06:21 86 14 138/75 05/27/21 06:11 86 15 138/75 05/27/21 06:00 82 14 138/75 05/27/21 05:51 84 13 149/75 05/27/21 05:41 85 14 149/75 05/27/21 05:30 87 16 149/75 05/27/21 05:21 88 15 139/65 05/27/21 05:11 86 15 139/65 05/27/21 05:00 89 16 140/66 05/27/21 04:51 88 17 139/65 05/27/21 04:41 87 17 139/65 05/27/21 04:30 89 19 139/65 05/27/21 04:21 91 H 23 132/77 05/27/21 04:11 89 20 132/77 05/27/21 04:00 92 H 21 140/76 05/27/21 03:51 100 H 22 132/77 05/27/21 03:41 107 H 21 132/77 05/27/21 03:30 93 H 21 132/77 05/27/21 03:21 98.2 F 95 H 21 136/76 05/27/21 03:11 93 H 18 131/78 05/27/21 03:01 104 H 26 H 131/78 05/27/21 02:51 92 H 17 131/78 05/27/21 02:41 95 H 15 131/78 05/27/21 02:31 96 H 17 131/78 05/27/21 02:23 05/27/21 02:21 88 20 131/78 05/27/21 02:11 87 15 131/78 05/27/21 02:01 92 H 23 131/78 05/27/21 01:51 87 16 120/69 05/27/21 01:41 91 H 17 120/69 05/27/21 01:30 88 15 120/69 05/27/21 01:21 88 15 121/67 05/27/21 01:11 90 16 121/67 05/27/21 01:00 92 H 17 121/67 05/27/21 00:51 89 16 120/74 05/27/21 00:41 89 15 120/74 05/27/21 00:30 89 15 120/74 05/27/21 00:21 90 20 126/70 05/27/21 00:11 100 H 17 126/70 05/27/21 00:00 92 H 16 126/70 05/26/21 23:59 98.4 F 05/26/21 23:51 92 H 13 121/79 05/26/21 23:41 91 H 14 121/79 05/26/21 23:33 97 H 18 121/79 05/26/21 23:31 96 H 24 121/79 05/26/21 23:21 100 H 15 119/73 05/26/21 23:11 96 H 14 119/73 05/26/21 23:00 97 H 17 119/73 05/26/21 22:51 97 H 16 151/32 05/26/21 22:41 98 H 18 151/32 05/26/21 22:31 105 H 14 151/32 05/26/21 22:21 108 H 19 127/74 05/26/21 22:11 99 H 14 127/74 05/26/21 22:00 93 H 17 127/74 05/26/21 21:51 124 H 15 05/26/21 21:40 130 H 22 133/76 05/26/21 21:31 99 H 18 133/76 05/26/21 21:21 93 H 18 137/84 05/26/21 21:16 137/84 05/26/21 21:11 106 H 20 137/84 05/26/21 21:00 105 H 15 137/84 05/26/21 20:51 107 H 15 133/78 05/26/21 20:41 108 H 16 133/78 05/26/21 20:30 107 H 17 133/78 05/26/21 20:21 108 H 19 146/88 05/26/21 20:11 110 H 18 146/88 05/26/21 20:00 106 H 22 146/88 05/26/21 19:51 114 H 23 150/86 05/26/21 19:41 138 H 19 150/86 05/26/21 19:37 97.9 F 05/26/21 19:30 102 H 15 150/86 05/26/21 19:21 99 H 19 141/80 05/26/21 19:15 05/26/21 19:14 103 H 19 05/26/21 19:11 109 H 25 H 141/80 05/26/21 19:00 110 H 17 141/80 05/26/21 18:51 124 H 13 138/73 05/26/21 18:41 107 H 19 138/73 05/26/21 18:30 99 H 16 138/73 05/26/21 18:21 104 H 19 134/82 05/26/21 18:19 112 H 15 134/82 05/26/21 18:11 116 H 19 134/82 05/26/21 18:01 111 H 16 134/82 05/26/21 17:51 110 H 25 H 134/83 05/26/21 17:41 123 H 27 H 134/83 05/26/21 17:33 39 H 05/26/21 17:31 130 H 32 H 138/61 05/26/21 17:21 112 H 24 138/61 05/26/21 17:11 109 H 26 H 156/93 05/26/21 17:01 135 H 26 H 156/93 05/26/21 16:51 107 H 25 H 156/93 05/26/21 16:41 104 H 17 138/61 05/26/21 16:31 105 H 24 138/61 05/26/21 16:21 114 H 20 156/93 05/26/21 16:11 137 H 13 156/93 05/26/21 16:01 141 H 24 156/93 05/26/21 16:00 107 H 115 H 05/26/21 15:51 107 H 26 H 142/85 05/26/21 15:41 130 H 23 142/85 05/26/21 15:30 107 H 25 H 142/85 05/26/21 15:21 131 H 26 H 137/81 05/26/21 15:11 109 H 28 H 142/79 05/26/21 15:01 139 H 19 142/79 05/26/21 14:51 138 H 21 137/81 05/26/21 14:41 105 H 25 H 137/81 05/26/21 14:30 106 H 24 137/81 05/26/21 14:21 138 H 23 147/87 05/26/21 14:16 113 H 25 H 147/87 05/26/21 14:11 141 H 22 147/87 05/26/21 14:00 109 H 24 148/78 05/26/21 13:51 135 H 22 148/81 Pulse Ox 05/27/21 12:21 97 05/27/21 12:11 97 05/27/21 12:00 96 05/27/21 11:51 97 05/27/21 11:41 97 05/27/21 11:31 97 05/27/21 11:21 97 05/27/21 11:10 97 05/27/21 11:00 95 05/27/21 10:50 96 05/27/21 10:41 98 05/27/21 10:31 97 05/27/21 10:21 97 05/27/21 10:10 95 05/27/21 10:00 96 05/27/21 09:51 95 05/27/21 09:41 96 05/27/21 09:30 97 05/27/21 09:21 97 05/27/21 09:11 97 05/27/21 09:00 95 05/27/21 08:51 96 05/27/21 08:41 97 05/27/21 08:30 96 05/27/21 08:21 97 05/27/21 08:11 98 05/27/21 08:01 96 05/27/21 08:00 94 05/27/21 07:51 98 05/27/21 07:41 96 05/27/21 07:31 90 05/27/21 07:23 05/27/21 07:21 97 05/27/21 07:11 97 05/27/21 07:00 96 05/27/21 06:51 97 05/27/21 06:41 97 05/27/21 06:30 94 05/27/21 06:21 96 05/27/21 06:11 96 05/27/21 06:00 94 05/27/21 05:51 96 05/27/21 05:41 96 05/27/21 05:30 95 05/27/21 05:21 95 05/27/21 05:11 96 05/27/21 05:00 94 05/27/21 04:51 93 05/27/21 04:41 93 05/27/21 04:30 94 05/27/21 04:21 96 05/27/21 04:11 96 05/27/21 04:00 97 05/27/21 03:51 95 05/27/21 03:41 95 05/27/21 03:30 95 05/27/21 03:21 95 05/27/21 03:11 95 05/27/21 03:01 95 05/27/21 02:51 96 05/27/21 02:41 96 05/27/21 02:31 95 05/27/21 02:23 97 05/27/21 02:21 97 05/27/21 02:11 96 05/27/21 02:01 95 05/27/21 01:51 96 05/27/21 01:41 97 05/27/21 01:30 95 05/27/21 01:21 96 05/27/21 01:11 96 05/27/21 01:00 96 05/27/21 00:51 95 05/27/21 00:41 96 05/27/21 00:30 96 05/27/21 00:21 98 05/27/21 00:11 95 05/27/21 00:00 96 05/26/21 23:59 05/26/21 23:51 95 05/26/21 23:41 96 05/26/21 23:33 98 05/26/21 23:31 97 05/26/21 23:21 96 05/26/21 23:11 96 05/26/21 23:00 95 05/26/21 22:51 95 05/26/21 22:41 97 05/26/21 22:31 93 05/26/21 22:21 95 05/26/21 22:11 94 05/26/21 22:00 94 05/26/21 21:51 97 05/26/21 21:40 93 05/26/21 21:31 94 05/26/21 21:21 95 05/26/21 21:16 05/26/21 21:11 96 05/26/21 21:00 95 05/26/21 20:51 95 05/26/21 20:41 96 05/26/21 20:30 94 05/26/21 20:21 95 05/26/21 20:11 94 05/26/21 20:00 92 05/26/21 19:51 94 05/26/21 19:41 98 05/26/21 19:37 05/26/21 19:30 99 05/26/21 19:21 98 05/26/21 19:15 95 05/26/21 19:14 05/26/21 19:11 96 05/26/21 19:00 92 05/26/21 18:51 98 05/26/21 18:41 95 05/26/21 18:30 94 05/26/21 18:21 95 05/26/21 18:19 95 05/26/21 18:11 95 05/26/21 18:01 92 05/26/21 17:51 98 05/26/21 17:41 97 05/26/21 17:33 05/26/21 17:31 96 05/26/21 17:21 96 05/26/21 17:11 96 05/26/21 17:01 95 05/26/21 16:51 96 05/26/21 16:41 96 05/26/21 16:31 95 05/26/21 16:21 97 05/26/21 16:11 96 05/26/21 16:01 95 05/26/21 16:00 97 05/26/21 15:51 96 05/26/21 15:41 97 05/26/21 15:30 96 05/26/21 15:21 96 05/26/21 15:11 97 05/26/21 15:01 98 05/26/21 14:51 98 05/26/21 14:41 99 05/26/21 14:30 98 05/26/21 14:21 98 05/26/21 14:16 99 05/26/21 14:11 96 05/26/21 14:00 96 05/26/21 13:51 95 - Physical Examination General: No Apparent Distress, Cachectic HEENT: Positive: PERRL Neck: Positive: neck supple Cardiac: Positive: Reg Rate and Rhythm Lungs: Positive: Decreased Breath Sounds Neuro: Positive: Weakness Abdomen: Positive: Soft Skin: Positive: Clear Extremities: Absent: edema
[2021-05-27 14:23] LABS: Hematocrit 37.6 % (35.5-45.6); Mean Corpuscular HGB Conc 32 % (32-34); Mean Corpuscular Volume 87 fl (84-94); Platelet Count 211 K/mm3 (140-440); Red Blood Count 4.32 M/mm3 (3.65-5.03); Red Cell Distribution Width 18.8 % (13.2-15.2)
[2021-05-27 14:48] LABS: Calcium 8.8 mg/dL (8.4-10.2)
[2021-05-27] MEDS: oxyCODONE /ACETAMINOPHEN 5-325MG TAB PO PRN (15:46)
[2021-05-27] MEDS: GABAPENTIN 300 MG CAP PO SCH ×2 (15:55→23:00)
[2021-05-27] MEDS: SENNOSIDES 8.6 MG TAB PO SCH (23:00)
[2021-05-27] MEDS: rOPINIRole 1 MG TAB PO SCH (23:00)
[2021-05-28] MEDS: cefTRIAXone/NS 1 GM/50 ML 1 GM/50 ML BAG IV SCH (02:32)
--- NOTE | 2021-05-28 03:22 | XRay Report ---
CHEST 1 VIEW 05/28/2021 1:55 AM INDICATION / CLINICAL INFORMATION: sob. COMPARISON: 05/27/2021 FINDINGS: SUPPORT DEVICES: None. HEART / MEDIASTINUM: Stable cardiomegaly LUNGS / PLEURA: Mild streaky bilateral parenchymal disease, unchanged No pneumothorax. ADDITIONAL FINDINGS: No significant additional findings. IMPRESSION: 1. No significant interval change Signer Name: Benjamín Sher MD Signed: 05/28/2021 3:17 AM Workstation Name: [id number]
[2021-05-28] MEDS: methylPREDNISolone Sod Succinate 125 MG/2 ML INJ IV SCH (05:14)
[2021-05-28] MEDS: HEPARIN 5,000 UNIT/1 ML VIAL SUB-Q SCH ×3 (05:14→21:29)
[2021-05-28] MEDS: AMIODARONE 900 MG in DEXTROSE 5% IN WATER 482 ML IV SCH (05:14)
[2021-05-28] MEDS: FUROSEMIDE 40 MG/4 ML INJ IV SCH (05:15)
[2021-05-28] MEDS: hydrALAZINE 25 MG TAB PO SCH ×3 (06:28→21:28)
[2021-05-28 07:12] LABS: Hematocrit 38.3 % (35.5-45.6); Hemoglobin 12.2 gm/dl (11.8-15.2); Mean Corpuscular HGB Conc 32 % (32-34); Mean Corpuscular Volume 86 fl (84-94); Platelet Count 236 K/mm3 (140-440); Red Blood Count 4.44 M/mm3 (3.65-5.03); Red Cell Distribution Width 19.1 % (13.2-15.2)
[2021-05-28 07:21] LABS: INR 1.36 (0.87-1.13)
[2021-05-28 07:29] LABS: Calcium 8.4 mg/dL (8.4-10.2)
[2021-05-28] MEDS: guaiFENesin/CODEINE 100-10MG ORAL LIQD 5 ML PO PRN ×3 (08:24→21:26)
[2021-05-28] MEDS: GABAPENTIN 300 MG CAP PO SCH ×2 (08:24→18:53)
--- NOTE | 2021-05-28 09:16 | Progress Note ---
Assessment and Plan Tachycardia reported with ventricular rate of 170 but there is no available documentation of his actual rhythm. On IV amiodarone Shortness of breath COPD exacerbation Echocardiogram shows normal left ventricle systolic function with ejection fraction 55-60%. Tricuspid regurgitation doppler analysis reports the pulmonary artery systolic pressure at within normal limits. Discontinue intravenous amiodarone. Instead, will use metoprolol for hypertension and suppression of arrhythmias. Subjective Date of service: 05/28/21 Interval history: No cardiac events. Currently, he is stable sinus rhythm, rate 90 on telemetry. Objective Vital Signs Temp Pulse Pulse Pulse Resp Resp BP 05/28/21 09:00 92 H 24 136/69 05/28/21 08:51 92 H 21 142/70 05/28/21 08:41 96 H 25 H 142/70 05/28/21 08:31 106 H 31 H 142/70 05/28/21 08:21 92 H 22 142/70 05/28/21 08:11 91 H 23 142/70 05/28/21 08:00 97 H 21 142/70 05/28/21 07:51 89 20 136/72 05/28/21 07:41 86 19 136/72 05/28/21 07:31 84 19 135/82 05/28/21 07:20 82 17 136/72 05/28/21 07:19 97.7 F 05/28/21 07:11 88 24 135/82 05/28/21 07:00 82 20 136/72 05/28/21 06:51 85 24 135/82 05/28/21 06:40 88 17 135/82 05/28/21 06:31 89 21 133/78 05/28/21 06:21 77 15 133/78 05/28/21 06:11 87 18 133/78 05/28/21 06:00 83 17 133/78 05/28/21 05:51 80 14 127/69 05/28/21 05:41 82 19 127/69 05/28/21 05:31 91 H 16 127/69 05/28/21 05:21 84 15 127/69 05/28/21 05:11 87 16 127/69 05/28/21 05:00 87 15 127/69 05/28/21 04:51 79 21 127/65 05/28/21 04:41 84 15 127/65 05/28/21 04:31 86 15 127/65 05/28/21 04:21 83 14 127/65 05/28/21 04:11 82 18 127/65 05/28/21 04:00 86 15 127/65 05/28/21 03:51 86 14 129/66 05/28/21 03:41 80 14 129/66 05/28/21 03:31 86 17 129/66 05/28/21 03:23 98.2 F 05/28/21 03:21 85 15 129/66 05/28/21 03:11 89 18 129/66 05/28/21 03:01 87 15 129/66 05/28/21 02:51 84 15 121/67 05/28/21 02:41 85 18 121/67 05/28/21 02:31 91 H 19 121/67 05/28/21 02:21 89 14 121/67 05/28/21 02:11 87 15 121/67 05/28/21 02:00 88 16 121/67 05/28/21 01:51 85 15 135/63 05/28/21 01:41 89 16 135/63 05/28/21 01:31 90 15 135/63 05/28/21 01:21 97 H 15 135/63 05/28/21 01:11 103 H 15 135/63 05/28/21 01:00 98 H 15 135/63 05/28/21 00:51 92 H 14 133/54 05/28/21 00:41 95 H 15 133/54 05/28/21 00:31 92 H 16 133/54 05/28/21 00:21 93 H 17 133/54 05/28/21 00:11 99 H 25 H 142/63 05/28/21 00:01 96 H 19 142/63 05/28/21 00:00 98.4 F 05/27/21 23:51 99 H 14 142/63 05/27/21 23:41 101 H 25 H 142/63 05/27/21 23:31 116 H 27 H 142/63 05/27/21 23:21 99 H 21 142/63 05/27/21 23:11 105 H 23 142/63 05/27/21 23:01 104 H 21 142/63 05/27/21 22:51 96 H 18 142/63 05/27/21 22:41 105 H 21 142/63 05/27/21 22:31 98 H 17 142/63 05/27/21 22:21 91 H 19 142/63 05/27/21 22:11 96 H 20 142/63 05/27/21 22:00 104 H 22 142/63 05/27/21 21:51 98 H 20 148/73 05/27/21 21:41 96 H 16 142/66 05/27/21 21:31 100 H 25 H 142/66 05/27/21 21:21 95 H 20 142/66 05/27/21 21:11 88 17 148/73 05/27/21 21:08 05/27/21 21:05 91 H 17 05/27/21 21:00 92 H 18 148/73 05/27/21 20:51 89 18 142/66 05/27/21 20:41 97 H 16 142/66 05/27/21 20:31 93 H 15 142/66 05/27/21 20:21 87 22 142/66 05/27/21 20:11 91 H 22 189/81 05/27/21 20:01 94 H 21 189/81 05/27/21 20:00 97.9 F 05/27/21 19:51 88 19 136/62 05/27/21 19:41 80 20 136/62 05/27/21 19:31 136/62 05/27/21 19:01 116/50 05/27/21 18:51 116/50 05/27/21 18:41 116/50 05/27/21 18:31 116/50 05/27/21 18:21 116/50 05/27/21 18:11 136/62 05/27/21 18:00 116/50 05/27/21 17:51 122/72 05/27/21 17:41 122/72 05/27/21 17:31 122/72 05/27/21 17:21 122/72 05/27/21 17:11 116/50 05/27/21 17:00 116/50 05/27/21 16:54 05/27/21 16:40 110 H 122/72 05/27/21 16:31 92 H 122/72 05/27/21 16:21 100 H 122/72 05/27/21 16:11 89 122/72 05/27/21 16:00 88 122/72 05/27/21 15:51 88 139/117 05/27/21 15:41 90 139/117 05/27/21 15:31 96 H 139/117 05/27/21 15:23 97.5 F L 05/27/21 15:21 95 H 139/117 05/27/21 15:11 96 H 139/117 05/27/21 15:01 98 H 139/117 05/27/21 14:51 99 H 124/70 05/27/21 14:41 127 H 124/70 05/27/21 14:31 94 H 124/70 05/27/21 14:21 87 124/70 05/27/21 14:11 88 124/70 05/27/21 14:01 89 124/70 05/27/21 13:51 106 H 124/62 05/27/21 13:41 89 124/62 05/27/21 13:31 84 124/62 05/27/21 13:21 96 H 124/62 05/27/21 13:11 85 124/62 05/27/21 13:01 87 124/62 05/27/21 12:51 90 140/78 05/27/21 12:41 95 H 140/78 05/27/21 12:31 90 140/78 05/27/21 12:21 93 H 140/78 05/27/21 12:11 91 H 140/78 05/27/21 12:00 98.0 F 89 105 H 140/78 05/27/21 11:51 102 H 25 H 131/74 05/27/21 11:41 102 H 15 131/74 05/27/21 11:31 91 H 19 131/74 05/27/21 11:21 90 18 131/74 05/27/21 11:10 103 H 23 150/74 05/27/21 11:00 90 19 131/74 05/27/21 10:50 92 H 23 150/74 05/27/21 10:41 82 150/74 05/27/21 10:31 89 150/74 05/27/21 10:21 92 H 150/74 05/27/21 10:10 91 H 150/74 05/27/21 10:00 90 150/74 05/27/21 09:51 95 H 150/91 05/27/21 09:41 90 150/91 05/27/21 09:30 92 H 150/91 05/27/21 09:21 88 21 150/91 Pulse Ox 05/28/21 09:00 95 05/28/21 08:51 99 05/28/21 08:41 97 05/28/21 08:31 94 05/28/21 08:21 98 05/28/21 08:11 98 05/28/21 08:00 94 05/28/21 07:51 97 05/28/21 07:41 98 05/28/21 07:31 97 05/28/21 07:20 96 05/28/21 07:19 05/28/21 07:11 96 05/28/21 07:00 96 05/28/21 06:51 97 05/28/21 06:40 98 05/28/21 06:31 98 05/28/21 06:21 98 05/28/21 06:11 96 05/28/21 06:00 95 05/28/21 05:51 98 05/28/21 05:41 99 05/28/21 05:31 99 05/28/21 05:21 100 05/28/21 05:11 99 05/28/21 05:00 98 05/28/21 04:51 99 05/28/21 04:41 99 05/28/21 04:31 98 05/28/21 04:21 97 05/28/21 04:11 98 05/28/21 04:00 97 05/28/21 03:51 98 05/28/21 03:41 98 05/28/21 03:31 98 05/28/21 03:23 05/28/21 03:21 98 05/28/21 03:11 97 05/28/21 03:01 97 05/28/21 02:51 98 05/28/21 02:41 98 05/28/21 02:31 99 05/28/21 02:21 99 05/28/21 02:11 99 05/28/21 02:00 98 05/28/21 01:51 99 05/28/21 01:41 99 05/28/21 01:31 98 05/28/21 01:21 99 05/28/21 01:11 99 05/28/21 01:00 98 05/28/21 00:51 98 05/28/21 00:41 98 05/28/21 00:31 98 05/28/21 00:21 99 05/28/21 00:11 91 05/28/21 00:01 98 05/28/21 00:00 99 05/27/21 23:51 96 05/27/21 23:41 96 05/27/21 23:31 05/27/21 23:21 05/27/21 23:11 99 05/27/21 23:01 99 05/27/21 22:51 98 05/27/21 22:41 97 05/27/21 22:31 92 05/27/21 22:21 98 05/27/21 22:11 97 05/27/21 22:00 96 05/27/21 21:51 97 05/27/21 21:41 88 05/27/21 21:31 97 05/27/21 21:21 100 05/27/21 21:11 100 05/27/21 21:08 97 05/27/21 21:05 05/27/21 21:00 98 05/27/21 20:51 99 05/27/21 20:41 98 05/27/21 20:31 98 05/27/21 20:21 97 05/27/21 20:11 99 05/27/21 20:01 95 05/27/21 20:00 95 05/27/21 19:51 100 05/27/21 19:41 98 05/27/21 19:31 99 05/27/21 19:01 95 05/27/21 18:51 95 05/27/21 18:41 94 05/27/21 18:31 95 05/27/21 18:21 93 05/27/21 18:11 98 05/27/21 18:00 96 05/27/21 17:51 96 05/27/21 17:41 95 05/27/21 17:31 95 05/27/21 17:21 97 05/27/21 17:11 95 05/27/21 17:00 94 05/27/21 16:54 98 05/27/21 16:40 97 05/27/21 16:31 96 05/27/21 16:21 97 05/27/21 16:11 98 05/27/21 16:00 94 05/27/21 15:51 96 05/27/21 15:41 95 05/27/21 15:31 96 05/27/21 15:23 05/27/21 15:21 97 05/27/21 15:11 97 05/27/21 15:01 96 05/27/21 14:51 94 05/27/21 14:41 96 05/27/21 14:31 98 05/27/21 14:21 98 05/27/21 14:11 98 05/27/21 14:01 99 05/27/21 13:51 96 05/27/21 13:41 98 05/27/21 13:31 98 05/27/21 13:21 97 05/27/21 13:11 99 05/27/21 13:01 95 05/27/21 12:51 97 05/27/21 12:41 95 05/27/21 12:31 95 05/27/21 12:21 97 05/27/21 12:11 97 05/27/21 12:00 96 05/27/21 11:51 97 05/27/21 11:41 97 05/27/21 11:31 97 05/27/21 11:21 97 05/27/21 11:10 97 05/27/21 11:00 95 05/27/21 10:50 96 05/27/21 10:41 98 05/27/21 10:31 97 05/27/21 10:21 97 05/27/21 10:10 95 05/27/21 10:00 96 05/27/21 09:51 95 05/27/21 09:41 96 05/27/21 09:30 97 05/27/21 09:21 97 - Physical Examination General: No Apparent Distress, Cachectic HEENT: Positive: PERRL Neck: Positive: neck supple Cardiac: Positive: Reg Rate and Rhythm Lungs: Positive: Decreased Breath Sounds, Wheezes Neuro: Positive: Weakness - Labs and Meds Coagulation 05/28/21 Range/Units 06:30 PT 17.4 H (12.2-14.9) Sec. INR 1.36 H (0.87-1.13) CBC 05/27/21 05/28/21 Range/Units 13:37 06:30 WBC 11.7 H 10.9 (4.5-11.0) K/mm3 RBC 4.32 4.44 (3.65-5.03) M/mm3 Hgb 12.0 12.2 (11.8-15.2) gm/dl Hct 37.6 38.3 (35.5-45.6) % Plt Count 211 236 (140-440) K/mm3 Comprehensive Metabolic Panel 05/27/21 05/28/21 Range/Units 13:37 06:30 Sodium 140 140 (137-145) mmol/L Potassium 4.2 4.2 (3.6-5.0) mmol/L Chloride 98.4 97.3 L (98-107) mmol/L Carbon Dioxide 33 H D 33 H (22-30) mmol/L BUN 49 H 52 H (9-20) mg/dL Creatinine 1.6 H 1.7 H (0.8-1.3) mg/dL Glucose 158 H 249 H (75-100) mg/dL Calcium 8.8 8.4 (8.4-10.2) mg/dL
[2021-05-28] MEDS: IPRATROPIUM/ALBUTEROL SULFATE 3 ML AMPUL.NEB IH SCH ×3 (10:15→19:51)
[2021-05-28] MEDS: BUDESONIDE 0.5 MG/2 ML NEBU IH SCH ×2 (10:15→19:51)
[2021-05-28] MEDS: ASPIRIN 81 MG TAB CHEW PO SCH (11:27)
[2021-05-28] MEDS: FAMOTIDINE 20 MG TAB PO SCH (11:27)
[2021-05-28] MEDS: CETIRIZINE 10 MG TAB PO SCH (11:27)
--- NOTE | 2021-05-28 15:04 | Vascular Lab Report ---
VL venous duplex LE BILAT INDICATION / CLINICAL INFORMATION: edema; hx dvt. TECHNIQUE: Duplex doppler imaging was performed using venous compression and other maneuvers. COMPARISON: None available. FINDINGS: No venous thrombosis is identified within the visualized extremity vasculature. ADDITIONAL FINDINGS: None. IMPRESSION: 1. No sonographic evidence for DVT in the visualized bilateral lower extremity vasculature. Signer Name: Mando Miller MD Signed: 05/28/2021 2:59 PM Workstation Name: [id number]
--- NOTE | 2021-05-28 15:11 | Progress Note ---
Assessment and Plan Assessment and plan: This is an 75-year-old female with COPD on home oxygen of 2.5 L and HTN who was admitted for COPD exacerbation,, acute exacerbation of chronic CHF and to rule out ACS Neuro: Generalized anxiety, ? EtOH abuse -Patient awake/alert/orientated x3 -cooperative -Avoid delirium -Reorientation as needed -CIWA protocol PRN -Requip -As needed Xanax -CTH normal -PRN pain meds/tylenol -home bere resumed today - takes for neuropathic BLE pain at home -OOB today -no focal deficit but with generalized weakness Cardio: r/o ACS, acute on chronic exacerbation of CHF, NSTEMI; afib; hx comm fem dvt -Cardiology consulted, appreciate recommendations -Echocardiogram completed on 05/23 shows LVEF of 55 to 60%, mild LVH, normal biventricular function-see report -Aspirin, Lipitor, Lasix (dose reduced to qday) -Hydralazine, as needed hydralazine, as needed nitroglycerin -Blood pressure monitoring per protocol -Amio gtt- per cards for afib -afib CVR; occ PVC's- following electrolytes reports of arrhythmia overnight- no strips -cards following -US BLE ordered to ro DVT Respiratory: Acute on chronic hypoxic respiratory failure, COPD exacerbation -S/p BiPAP therapy currently on nasal cannula -SPO2 monitoring per protocol -Pulmonary hygiene -CCM consulted, appreciate recommendations -NC on NC 2.5L at home -continue nebs GI: dysphagia speech following; hx gerd -ST following -cleared for mechanical and nector thick diet per speech -BR: senna -PPI- homemed : Acute kidney injury -Strict intake and output -daily lasix -Trend BMP -24 hours net neg 960 ml -Cr up to 1.7 held lasix today baseline Cr 05/23 1.1 -AM labs ordered Endo: NAD -Avoid hypoglycemia -BG q6h -SSI PRN Heme: on coumadin at home -Heparin subq VTE on home coumadin -- hx DVT common fem. per EMR in afib currently chadvasc2 3 -SCDs to BLE -Trend CBC -Transfuse for hbg <7 ID: a/c copd ae with URI -Trend CBC -ceftriaxone for URI -solumedrol Q8h The high probability of a clinically significant, sudden or life threatening deterioration of the [neuro/resp] system(s) required my full and direct attention, intervention and personal management. The aggregate critical care time was [30] minutes. This time is in addition to time spent performing reported procedures but includes the following: [x] Data Review and interpretation [x] Patient assessment and monitoring of vital signs [x] Documentation [x] Medication orders and management This is a 75-year-old male with COPD on home oxygen of 2.5 L, nicotine abuse and HTN who presents to the emergency department 05/23 because of mild orthopnea and nagging cough for 1 day and substernal chest pain described as tightness in nature. Work-up in the emergency department revealed proBNP of 3136, troponin 0 0.03 and CXR showed bibasilar segmental atelectasis/scarring with patchy parenchymal disease in the right lower lung base. Patient was admitted to the hospitalist service with acute exacerbation of chronic congestive heart failure, rule out ACS, COPD exacerbation consults to cardiology and eventually pulmonology was consulted due to acute respiratory distress. 05/24: Was on 2 L nasal cannula and awake, alert and oriented without any acute d istress in the a.m. when examined by the hospitalist however around 1900 code met was called as the patient was very short of breath and hypertensive with a blood pressure of 200/110, tachycardia into the 170s and very agitated and restless. He was also wheezing. Patient was given IV hydralazine, IV Cardizem and started on a Cardizem drip and transferred to the ICU on BiPAP therapy. CCM was consulted. 05/25: Patient weaned to NC from BiPAP this morning. Weaning Precedex as tolerated. AM labs 05/26: Patient had moments of lucidity and followed by AMS. Patient failed bedside swallow overngith so ST eval ordered. CT head shows no acute intercranial abnomality. Patient is alert and orientated. Santos removed. 05/27 gisell overnight speech to see today Disposition Plan: icu Total Time Spent with Patient (Minutes): 60 History Interval history: no acute events Hospitalist Physical - Constitutional Vitals: Temp Pulse Resp BP Pulse Ox 97.5 F L 86 15 160/78 85 05/28/21 12:03 05/28/21 13:41 05/28/21 13:41 05/28/21 13:41 05/28/21 13:31 General appearance: Present: no acute distress, well-nourished, other (On 2 L nasal cannula oxygen) - EENT Eyes: Present: PERRL, EOM intact ENT: clear oral mucosa - Neck Neck: Present: supple, normal ROM - Respiratory Respiratory effort: normal - Cardiovascular Rhythm: regular Heart Sounds: Present: gallop - Abdominal General gastrointestinal: soft, non-tender - Integumentary Integumentary: Present: clear, warm, dry - Psychiatric Psychiatric: appropriate mood/affect - Neurologic Neurologic: CNII-XII intact - Allied Health Allied health notes reviewed: nursing, RT, social work, case management HEART Score - HEART Score EKG: Non-specific Age: > 65 Risk factors: 1-2 risk factors Troponin: Troponin T 0.023 ng/mL (0.00-0.029) 05/24/21 04:58 Troponin: 1-3x normal limit Results - Labs CBC & Chem 7: 05/28/21 06:30 05/28/21 06:30 Labs: Laboratory Last Values WBC 10.9 K/mm3 (4.5-11.0) 05/28/21 06:30 RBC 4.44 M/mm3 (3.65-5.03) 05/28/21 06:30 Hgb 12.2 gm/dl (11.8-15.2) 05/28/21 06:30 Hct 38.3 % (35.5-45.6) 05/28/21 06:30 MCV 86 fl (84-94) 05/28/21 06:30 MCH 27 pg (28-32) L 05/28/21 06:30 MCHC 32 % (32-34) 05/28/21 06:30 RDW 19.1 % (13.2-15.2) H 05/28/21 06:30 Plt Count 236 K/mm3 (140-440) 05/28/21 06:30 Lymph % (Auto) 5.2 % (13.4-35.0) L 05/24/21 03:01 Rhea % (Auto) 6.6 % (0.0-7.3) 05/24/21 03:01 Eos % (Auto) 0.0 % (0.0-4.3) 05/24/21 03:01 Baso % (Auto) 0.1 % (0.0-1.8) 05/24/21 03:01 Lymph # (Auto) 0.3 K/mm3 (1.2-5.4) L 05/24/21 03:01 Rhea # (Auto) 0.4 K/mm3 (0.0-0.8) 05/24/21 03:01 Eos # (Auto) 0.0 K/mm3 (0.0-0.4) 05/24/21 03:01 Baso # (Auto) 0.0 K/mm3 (0.0-0.1) 05/24/21 03:01 Add Manual Diff Complete 05/25/21 02:45 Total Counted 100 05/25/21 02:45 Seg Neutrophils % Franchise Specialist 05/25/21 02:45 Seg Neuts % (Manual) 95.0 % (40.0-70.0) H 05/25/21 02:45 Lymphocytes % (Manual) 1.0 % (13.4-35.0) L 05/25/21 02:45 Monocytes % (Manual) 4.0 % (0.0-7.3) 05/25/21 02:45 Nucleated RBC % Not Reportable 05/25/21 02:45 Seg Neutrophils # 5.2 K/mm3 (1.8-7.7) 05/24/21 03:01 Seg Neutrophils # Man 9.5 K/mm3 (1.8-7.7) H 05/25/21 02:45 Band Neutrophils # 0.0 K/mm3 05/25/21 02:45 Lymphocytes # (Manual) 0.1 K/mm3 (1.2-5.4) L 05/25/21 02:45 Abs React Lymphs (Man) 0.0 K/mm3 05/25/21 02:45 Monocytes # (Manual) 0.4 K/mm3 (0.0-0.8) 05/25/21 02:45 Eosinophils # (Manual) 0.0 K/mm3 (0.0-0.4) 05/25/21 02:45 Basophils # (Manual) 0.0 K/mm3 (0.0-0.1) 05/25/21 02:45 Metamyelocytes # 0.0 K/mm3 05/25/21 02:45 Myelocytes # 0.0 K/mm3 05/25/21 02:45 Promyelocytes # 0.0 K/mm3 05/25/21 02:45 Blast Cells # 0.0 K/mm3 05/25/21 02:45 WBC Morphology Not Reportable 05/25/21 02:45 Hypersegmented Neuts Not Reportable 05/25/21 02:45 Hyposegmented Neuts Not Reportable 05/25/21 02:45 Hypogranular Neuts Not Reportable 05/25/21 02:45 Smudge Cells Not Reportable 05/25/21 02:45 Toxic Granulation Not Reportable 05/25/21 02:45 Toxic Vacuolation Not Reportable 05/25/21 02:45 Dohle Bodies Not Reportable 05/25/21 02:45 Pelger-Huet Anomaly Not Reportable 05/25/21 02:45 Fabricio Rods Not Reportable 05/25/21 02:45 Platelet Estimate Consistent w auto 05/25/21 02:45 Clumped Platelets Not Reportable 05/25/21 02:45 Plt Clumps, EDTA Not Reportable 05/25/21 02:45 Large Platelets Not Reportable 05/25/21 02:45 Giant Platelets Not Reportable 05/25/21 02:45 Platelet Satelliting Not Reportable 05/25/21 02:45 Plt Morphology Comment Not Reportable 05/25/21 02:45 RBC Morphology Not Reportable 05/25/21 02:45 Dimorphic RBCs Not Reportable 05/25/21 02:45 Polychromasia Not Reportable 05/25/21 02:45 Hypochromasia Not Reportable 05/25/21 02:45 Poikilocytosis Not Reportable 05/25/21 02:45 Anisocytosis 1+ 05/25/21 02:45 Microcytosis Not Reportable 05/25/21 02:45 Macrocytosis Not Reportable 05/25/21 02:45 Spherocytes Not Reportable 05/25/21 02:45 Pappenheimer Bodies Not Reportable 05/25/21 02:45 Sickle Cells Not Reportable 05/25/21 02:45 Target Cells Not Reportable 05/25/21 02:45 Tear Drop Cells Not Reportable 05/25/21 02:45 Ovalocytes Not Reportable 05/25/21 02:45 Helmet Cells Not Reportable 05/25/21 02:45 [place] Bodies Not Reportable 05/25/21 02:45 [place] Rings Not Reportable 05/25/21 02:45 Donaldo Cells Not Reportable 05/25/21 02:45 Bite Cells Not Reportable 05/25/21 02:45 Crenated Cell Not Reportable 05/25/21 02:45 Elliptocytes Not Reportable 05/25/21 02:45 Acanthocytes (Spur) Not Reportable 05/25/21 02:45 Rouleaux Not Reportable 05/25/21 02:45 Hemoglobin C Crystals Not Reportable 05/25/21 02:45 Schistocytes Not Reportable 05/25/21 02:45 Malaria parasites Not Reportable 05/25/21 02:45 Julio Cesar Bodies Not Reportable 05/25/21 02:45 Hem Pathologist Commnt No 05/25/21 02:45 PT 17.4 Sec. (12.2-14.9) H 05/28/21 06:30 INR 1.36 (0.87-1.13) H 05/28/21 06:30 APTT 32.9 Sec. (24.2-36.6) 05/23/21 17:37 ABG pH 7.343 (7.320-7.450) 05/24/21 20:48 POC ABG pCO2 42.9 mmHg (32.0-48.0) 05/24/21 20:48 POC ABG pO2 136.5 mmHg (83-108) H 05/24/21 20:48 POC ABG HCO3 22.8 05/24/21 20:48 ABG O2 Saturation 98.6 (0-100) 05/24/21 20:48 POC ABG Base Excess -2.9 05/24/21 20:48 ABG Hemoglobin 13.0 (12.0-17.5) 05/24/21 20:48 ABG Oxyhemoglobin 97.6 (94-98) 05/24/21 20:48 ABG Methemoglobin 0.3 (0.0-1.5) 05/24/21 20:48 ABG Sodium 130.6 mmol/L (136.0-145.0) L 05/24/21 20:48 ABG Potassium 4.2 mmol/L (3.40-4.50) 05/24/21 20:48 ABG Chloride 100.0 mmol/L (98-107) 05/24/21 20:48 ABG Glucose 141 mg/dL (65-95) H 05/24/21 20:48 Carboxyhemoglobin 0.7 (0.5-1.5) 05/24/21 20:48 FiO2 % 100.0 05/24/21 20:48 Sodium 140 mmol/L (137-145) 05/28/21 06:30 Potassium 4.2 mmol/L (3.6-5.0) 05/28/21 06:30 Chloride 97.3 mmol/L (98-107) L 05/28/21 06:30 Carbon Dioxide 33 mmol/L (22-30) H 05/28/21 06:30 Anion Gap 14 mmol/L 05/28/21 06:30 BUN 52 mg/dL (9-20) H 05/28/21 06:30 Creatinine 1.7 mg/dL (0.8-1.3) H 05/28/21 06:30 Estimated GFR 39 ml/min 05/28/21 06:30 BUN/Creatinine Ratio 31 % 05/28/21 06:30 Glucose 249 mg/dL (75-100) H 05/28/21 06:30 POC Glucose 160 mg/dL (70-105) H 05/28/21 11:24 Lactic Acid 1.50 mmol/L (0.7-2.0) 05/24/21 22:55 Calcium 8.4 mg/dL (8.4-10.2) 05/28/21 06:30 Phosphorus 3.20 mg/dL (2.5-4.5) 05/28/21 06:30 Magnesium 2.50 mg/dL (1.7-2.3) H 05/28/21 06:30 Total Bilirubin 0.50 mg/dL (0.1-1.2) 05/25/21 02:45 AST 36 units/L (5-40) 05/25/21 02:45 ALT 13 units/L (7-56) 05/25/21 02:45 Alkaline Phosphatase 60 units/L (35-129) 05/25/21 02:45 Ammonia 14.0 umol/L (25-60) L 05/26/21 11:53 Troponin T 0.023 ng/mL (0.00-0.029) 05/24/21 04:58 NT-Pro-B Natriuret Pep 3136 pg/mL (0-900) H 05/23/21 17:37 Total Protein 6.8 g/dL (6.3-8.2) 05/25/21 02:45 Albumin 3.9 g/dL (3.9-5) 05/25/21 02:45 Albumin/Globulin Ratio 1.3 % 05/25/21 02:45 Triglycerides 93 mg/dL (2-149) 05/23/21 17:37 Cholesterol 140 mg/dL (50-199) 05/23/21 17:37 LDL Cholesterol Direct 63 mg/dL (50-130) 05/23/21 17:37 HDL Cholesterol 67 mg/dL (40-59) H 05/23/21 17:37 Cholesterol/HDL Ratio 2.08 % 05/23/21 17:37 Arterial Blood Glucose 141 mg/dL (65-95) H 05/24/21 20:48 Arterial Blood Ionized Calcium 4.0 mg/dL (4.6-5.3) L 05/24/21 20:48 Urine Osmolality 353 Mosm/kg 05/25/21 18:00 Urine Creatinine 85.3 mg/dL (0.1-20.0) H 05/25/21 18:00 Urine Sodium 25 mmol/L 05/25/21 18:00 Urine Potassium 58.93 mmol/L 05/25/21 18:00 Microbiology: Microbiology 05/23/21 17:37 Peripheral/Venous Blood Culture - Preliminary NO GROWTH AFTER 4 DAYS 05/23/21 17:37 Peripheral/Venous Blood Culture - Preliminary NO GROWTH AFTER 4 DAYS Santos/IV: Voiding Method Urinal Active Medications - Current Medications Current Medications: Generic Name Dose Route Start Last Admin Trade Name Freq PRN Reason Stop Dose Admin Acetaminophen 650 mg 05/23/21 23:17 Acetaminophen 325 Mg Tab PO Q6H PRN Pain, Mild (1-3) Albuterol/Ipratropium 1 ampul 05/25/21 14:00 05/28/21 10:15 Ipratropium/Albuterol Sulfate 3 Ml Ampul.Neb IH 1 ampul TIDRT THERON Administration Alprazolam 0.5 mg 05/24/21 18:53 05/27/21 15:47 Alprazolam 0.5 Mg Tab PO 0.5 mg Q8H PRN Administration Anxiety Aspirin 81 mg 05/26/21 10:00 05/28/21 11:27 Aspirin 81 Mg Tab Chew PO 81 mg QDAY THERON Administration Atorvastatin Calcium 40 mg 05/24/21 22:00 05/27/21 23:00 Atorvastatin 40 Mg Tab PO 40 mg QHS THERON Administration Budesonide 0.5 mg 05/24/21 20:00 05/28/21 10:15 Budesonide 0.5 Mg/2 Ml Nebu IH 0.5 mg Q12HRT THERON Administration Cetirizine HCl 10 mg 05/24/21 12:00 05/28/21 11:27 Cetirizine 10 Mg Tab PO 10 mg QDAY THERON Administration Dextrose 50 ml 05/25/21 09:30 Dextrose 50% In Water (25gm) 50 Ml Syringe IV Q30MIN PRN Hypoglycemia Protocol Famotidine 20 mg 05/24/21 11:00 05/28/21 11:27 Famotidine 20 Mg Tab PO 20 mg DAILY THERON Administration Gabapentin 300 mg 05/27/21 16:00 05/28/21 08:24 Gabapentin 300 Mg Cap PO 300 mg Q8H THERON Administration Heparin Sodium (Porcine) 5,000 unit 05/24/21 06:00 05/28/21 05:14 Heparin 5,000 Unit/1 Ml Vial SUB-Q 5,000 unit Q8HR THERNO Administration Hydralazine HCl 10 mg 05/23/21 23:30 05/24/21 18:02 Hydralazine 20 Mg/1 Ml Inj IV 10 mg Q6H PRN Administration SBP >/=165; DBP >/=100 Hydralazine HCl 50 mg 05/24/21 20:00 05/28/21 06:28 Hydralazine 25 Mg Tab PO 50 mg Q8HR THERON Administration Insulin Human Regular 0 units 05/25/21 09:00 Insulin Regular, Human 100 Units/1 Ml SUB-Q Q6H PRN Hyperglycemia Protocol Levalbuterol HCl 0.63 mg 05/24/21 19:52 05/26/21 03:28 Levalbuterol 0.63 Mg/3 Ml Nebu IH 0.63 mg Q6H PRN Administration Shortness Of Breath Methylprednisolone Sodium Succinate 40 mg 05/28/21 14:00 Methylprednisolone Sod Succinate 40 Mg/1 Ml Inj IV 05/29/21 06:01 Q8H THERON Methylprednisolone Sodium Succinate 40 mg 05/29/21 18:00 Methylprednisolone Sod Succinate 40 Mg/1 Ml Inj IV 05/30/21 06:01 Q12H THERON Methylprednisolone Sodium Succinate 40 mg 05/31/21 10:00 Methylprednisolone Sod Succinate 40 Mg/1 Ml Inj IV 05/31/21 10:01 Q24H THERON Metoprolol Tartrate 50 mg 05/28/21 14:00 Metoprolol Tartrate 50 Mg Tab PO TID THERON Nitroglycerin 0.4 mg 05/23/21 23:17 Nitroglycerin 0.4 Mg Tab Subl SL Q5M PRN Chest Pain Ondansetron HCl 4 mg 05/23/21 23:17 Ondansetron 4 Mg/2 Ml Inj IV Q8H PRN Nausea And Vomiting Oxycodone/Acetaminophen 1 tab 05/23/21 23:17 05/27/21 15:46 Oxycodone /Acetaminophen 5-325mg Tab PO 1 tab Q6H PRN Administration Pain, Moderate (4-6) Pseudoephedrine/Acetam/Chlorphenir 7.5 ml 05/26/21 20:10 05/28/21 11:27 Guaifenesin/Codeine 100-10mg Oral Liqd 5 Ml PO 7.5 ml Q4H PRN Administration Cough Ropinirole HCl 1 mg 05/24/21 22:00 05/27/21 23:00 Ropinirole 1 Mg Tab PO 1 mg QHS THERON Administration Senna 17.2 mg 05/25/21 22:00 05/27/21 23:00 Sennosides 8.6 Mg Tab PO Not Given QHS THERON Sodium Chloride 10 ml 05/24/21 10:00 05/28/21 11:48 Sodium Chloride 0.9% 10 Ml Flush Syringe IV 10 ml BID THERON Administration Sodium Chloride 10 ml 05/23/21 23:17 Sodium Chloride 0.9% 10 Ml Flush Syringe IV PRN PRN LINE FLUSH Nutrition/Malnutrition Assess - Dietary Evaluation Nutrition/Malnutrition Findings: Nutrition Notes Start: 05/25/21 11:30 Freq: Status: Active Protocol: Document 05/27/21 09:12 MIRANDA (Rec: 05/27/21 09:21 MIRANDA [id number]) Nutrition Notes Need for Assessment generated from: MD Order Initial or Follow up Reassessment Current Diagnosis COPD,Hypertension,Heart Failure Other Pertinent Diagnosis Exacerbation of COPD and CHF, r/o ACS Current Diet NPO Labs/Tests Reviewed Pertinent Medications Lasix Height 5 ft 6 in Weight 91.6 kg [place] Body Weight (kg) 64.54 BMI 32.5 Weight Status Obese Subjective/Other Information RD consulted for TF. Per RN note yesterday, pt able to swallow water, however, JEANETTE tripp ordered to confirm safe swallow. Burn Absent Trauma Absent #1 Nutrition Diagnosis Predicted suboptimal energy intake,Inadequate oral intake Comments: CHANGED Etiology CHF/COPD exacerbation As Evidenced by Signs and Symptoms pt NPO Is patient on ventilator? No Is Patient Ambulatory and/or Out of Bed No REE-([facility]-confined to bed) 1918.596 Kcal/Kg value to use for calculation 20 Approximate Energy Requirements Using 1832 kcal/Kg Calculation Used for Recommendations Kcal/kg Additional Notes Pro needs 2g/kg IBW: 129g/day Fluid needs 1ml/kcal Nutrition Intervention Change Diet Order: Advance diet when medically feasible Nutrition Support: If necessary, recommended TF formula is Promote at 75ml/hr with 50ml water flush q4h. Goal #1 Either advance diet or start EN support to meet nutrient needs Anticipated Discharge Needs: Unable to identify at this time Follow-Up By: 05/29/21 Additional Comments F/U: JEANETTE tripp, diet advancement vs need for TF, resp status
[2021-05-28] MEDS: METOPROLOL TARTRATE 50 MG TAB PO SCH ×2 (15:16→21:29)
[2021-05-28] MEDS: methylPREDNISolone Sod Succinate 40 MG/1 ML INJ IV SCH ×2 (15:16→21:27)
[2021-05-28] MEDS: SENNOSIDES 8.6 MG TAB PO SCH (21:27)
[2021-05-28] MEDS: rOPINIRole 1 MG TAB PO SCH (21:30)
[2021-05-29] MEDS: GABAPENTIN 300 MG CAP PO SCH ×2 (00:15→10:36)
[2021-05-29] MEDS: IPRATROPIUM/ALBUTEROL SULFATE 3 ML AMPUL.NEB IH SCH ×3 (04:29→14:35)
[2021-05-29] MEDS: guaiFENesin/CODEINE 100-10MG ORAL LIQD 5 ML PO PRN (04:54)
[2021-05-29 05:40] LABS: Hematocrit 39.7 % (35.5-45.6); Hemoglobin 12.7 gm/dl (11.8-15.2); Mean Corpuscular HGB Conc 32 % (32-34); Mean Corpuscular Volume 88 fl (84-94); Platelet Count 232 K/mm3 (140-440); Red Blood Count 4.53 M/mm3 (3.65-5.03); Red Cell Distribution Width 18.7 % (13.2-15.2)
[2021-05-29 05:51] LABS: INR 1.23 (0.87-1.13)
[2021-05-29 06:03] LABS: Albumin 3.3 g/dL (3.9-5)
[2021-05-29] MEDS: hydrALAZINE 25 MG TAB PO SCH ×2 (07:00→14:29)
[2021-05-29] MEDS: methylPREDNISolone Sod Succinate 40 MG/1 ML INJ IV SCH (07:00)
[2021-05-29] MEDS: HEPARIN 5,000 UNIT/1 ML VIAL SUB-Q SCH (07:01)
[2021-05-29] MEDS: oxyCODONE /ACETAMINOPHEN 5-325MG TAB PO PRN (07:01)
--- NOTE | 2021-05-29 08:07 | Progress Note ---
Assessment and Plan Assessment and plan: This is an 75-year-old female with COPD on home oxygen of 2.5 L and HTN who was admitted for COPD exacerbation,, acute exacerbation of chronic CHF and to rule out ACS Acute on chronic hypoxic respiratory failure Acute COPD exacerbation Acute on chronic diastolic heart failure NSTEMI History of DVT EtOH abuse Oropharyngeal dysphagia GERD Acute kidney injury 05/29/2021. Patient is s/p BiPAP and now with 2 L nasal cannula satting at 96%. Patient with home oxygen of 2.5 L. Continue bronchodilators/nebulizers. Continue Solu-Medrol 40 mg IV with taper. Atrial fibrillation with rate control on metoprolol 3 times daily. Amiodarone drip has been discontinued. Echocardiogram shows normal left ventricle systolic function with ejection fraction 55-60%. Tricuspid regurgitation doppler analysis reports the pulmonary artery systolic pressure at within normal limits. Continue CIWA protocol for EtOH abuse. PT evaluation for discharge planning. History Interval history: No new issues overnight. Hospitalist Physical - Constitutional Vitals: Temp Pulse Resp BP Pulse Ox 97.5 F L 72 22 159/94 93 05/29/21 04:13 05/29/21 07:00 05/29/21 04:39 05/29/21 07:00 05/29/21 04:13 General appearance: Present: no acute distress, well-nourished, other (On 2 L nasal cannula oxygen) - EENT Eyes: Present: PERRL, EOM intact ENT: hearing intact, clear oral mucosa, dentition normal - Neck Neck: Present: supple, normal ROM - Respiratory Respiratory effort: normal Respiratory: bilateral: CTA - Cardiovascular Rhythm: regular Heart Sounds: Present: S1 & S2. Absent: gallop, rub - Extremities Extremities: no ischemia, No edema, Full ROM - Abdominal General gastrointestinal: soft, non-tender, non-distended, normal bowel sounds - Integumentary Integumentary: Present: clear, warm, dry - Neurologic Neurologic: CNII-XII intact, moves all extremities HEART Score - HEART Score EKG: Non-specific Age: > 65 Risk factors: 1-2 risk factors Troponin: Troponin T 0.023 ng/mL (0.00-0.029) 05/24/21 04:58 Troponin: 1-3x normal limit Results - Labs CBC & Chem 7: 05/29/21 04:20 05/29/21 Unknown Labs: Laboratory Last Values WBC 10.4 K/mm3 (4.5-11.0) 05/29/21 04:20 RBC 4.53 M/mm3 (3.65-5.03) 05/29/21 04:20 Hgb 12.7 gm/dl (11.8-15.2) 05/29/21 04:20 Hct 39.7 % (35.5-45.6) 05/29/21 04:20 MCV 88 fl (84-94) 05/29/21 04:20 MCH 28 pg (28-32) 05/29/21 04:20 MCHC 32 % (32-34) 05/29/21 04:20 RDW 18.7 % (13.2-15.2) H 05/29/21 04:20 Plt Count 232 K/mm3 (140-440) 05/29/21 04:20 Lymph % (Auto) 5.2 % (13.4-35.0) L 05/24/21 03:01 Yell % (Auto) 6.6 % (0.0-7.3) 05/24/21 03:01 Eos % (Auto) 0.0 % (0.0-4.3) 05/24/21 03:01 Baso % (Auto) 0.1 % (0.0-1.8) 05/24/21 03:01 Lymph # (Auto) 0.3 K/mm3 (1.2-5.4) L 05/24/21 03:01 Yell # (Auto) 0.4 K/mm3 (0.0-0.8) 05/24/21 03:01 Eos # (Auto) 0.0 K/mm3 (0.0-0.4) 05/24/21 03:01 Baso # (Auto) 0.0 K/mm3 (0.0-0.1) 05/24/21 03:01 Add Manual Diff Complete 05/25/21 02:45 Total Counted 100 05/25/21 02:45 Seg Neutrophils % [employer] 05/25/21 02:45 Seg Neuts % (Manual) 95.0 % (40.0-70.0) H 05/25/21 02:45 Lymphocytes % (Manual) 1.0 % (13.4-35.0) L 05/25/21 02:45 Monocytes % (Manual) 4.0 % (0.0-7.3) 05/25/21 02:45 Nucleated RBC % Not Reportable 05/25/21 02:45 Seg Neutrophils # 5.2 K/mm3 (1.8-7.7) 05/24/21 03:01 Seg Neutrophils # Man 9.5 K/mm3 (1.8-7.7) H 05/25/21 02:45 Band Neutrophils # 0.0 K/mm3 05/25/21 02:45 Lymphocytes # (Manual) 0.1 K/mm3 (1.2-5.4) L 05/25/21 02:45 Abs React Lymphs (Man) 0.0 K/mm3 05/25/21 02:45 Monocytes # (Manual) 0.4 K/mm3 (0.0-0.8) 05/25/21 02:45 Eosinophils # (Manual) 0.0 K/mm3 (0.0-0.4) 05/25/21 02:45 Basophils # (Manual) 0.0 K/mm3 (0.0-0.1) 05/25/21 02:45 Metamyelocytes # 0.0 K/mm3 05/25/21 02:45 Myelocytes # 0.0 K/mm3 05/25/21 02:45 Promyelocytes # 0.0 K/mm3 05/25/21 02:45 Blast Cells # 0.0 K/mm3 05/25/21 02:45 WBC Morphology Not Reportable 05/25/21 02:45 Hypersegmented Neuts Not Reportable 05/25/21 02:45 Hyposegmented Neuts Not Reportable 05/25/21 02:45 Hypogranular Neuts Not Reportable 05/25/21 02:45 Smudge Cells Not Reportable 05/25/21 02:45 Toxic Granulation Not Reportable 05/25/21 02:45 Toxic Vacuolation Not Reportable 05/25/21 02:45 Dohle Bodies Not Reportable 05/25/21 02:45 Pelger-Huet Anomaly Not Reportable 05/25/21 02:45 Fabricio Rods Not Reportable 05/25/21 02:45 Platelet Estimate Consistent w auto 05/25/21 02:45 Clumped Platelets Not Reportable 05/25/21 02:45 Plt Clumps, EDTA Not Reportable 05/25/21 02:45 Large Platelets Not Reportable 05/25/21 02:45 Giant Platelets Not Reportable 05/25/21 02:45 Platelet Satelliting Not Reportable 05/25/21 02:45 Plt Morphology Comment Not Reportable 05/25/21 02:45 RBC Morphology Not Reportable 05/25/21 02:45 Dimorphic RBCs Not Reportable 05/25/21 02:45 Polychromasia Not Reportable 05/25/21 02:45 Hypochromasia Not Reportable 05/25/21 02:45 Poikilocytosis Not Reportable 05/25/21 02:45 Anisocytosis 1+ 05/25/21 02:45 Microcytosis Not Reportable 05/25/21 02:45 Macrocytosis Not Reportable 05/25/21 02:45 Spherocytes Not Reportable 05/25/21 02:45 Pappenheimer Bodies Not Reportable 05/25/21 02:45 Sickle Cells Not Reportable 05/25/21 02:45 Target Cells Not Reportable 05/25/21 02:45 Tear Drop Cells Not Reportable 05/25/21 02:45 Ovalocytes Not Reportable 05/25/21 02:45 Helmet Cells Not Reportable 05/25/21 02:45 [place] Bodies Not Reportable 05/25/21 02:45 [place] Rings Not Reportable 05/25/21 02:45 [place] Cells Not Reportable 05/25/21 02:45 Bite Cells Not Reportable 05/25/21 02:45 Crenated Cell Not Reportable 05/25/21 02:45 Elliptocytes Not Reportable 05/25/21 02:45 Acanthocytes (Spur) Not Reportable 05/25/21 02:45 Rouleaux Not Reportable 05/25/21 02:45 Hemoglobin C Crystals Not Reportable 05/25/21 02:45 Schistocytes Not Reportable 05/25/21 02:45 Malaria parasites Not Reportable 05/25/21 02:45 Julio Cesar Bodies Not Reportable 05/25/21 02:45 Hem Pathologist Commnt No 05/25/21 02:45 PT 16.1 Sec. (12.2-14.9) H 05/29/21 04:20 INR 1.23 (0.87-1.13) H 05/29/21 04:20 APTT 32.9 Sec. (24.2-36.6) 05/23/21 17:37 ABG pH 7.343 (7.320-7.450) 05/24/21 20:48 POC ABG pCO2 42.9 mmHg (32.0-48.0) 05/24/21 20:48 POC ABG pO2 136.5 mmHg (83-108) H 05/24/21 20:48 POC ABG HCO3 22.8 05/24/21 20:48 ABG O2 Saturation 98.6 (0-100) 05/24/21 20:48 POC ABG Base Excess -2.9 05/24/21 20:48 ABG Hemoglobin 13.0 (12.0-17.5) 05/24/21 20:48 ABG Oxyhemoglobin 97.6 (94-98) 05/24/21 20:48 ABG Methemoglobin 0.3 (0.0-1.5) 05/24/21 20:48 ABG Sodium 130.6 mmol/L (136.0-145.0) L 05/24/21 20:48 ABG Potassium 4.2 mmol/L (3.40-4.50) 05/24/21 20:48 ABG Chloride 100.0 mmol/L (98-107) 05/24/21 20:48 ABG Glucose 141 mg/dL (65-95) H 05/24/21 20:48 Carboxyhemoglobin 0.7 (0.5-1.5) 05/24/21 20:48 FiO2 % 100.0 05/24/21 20:48 Sodium 144 mmol/L (137-145) 05/29/21 Unknown Potassium 4.4 mmol/L (3.6-5.0) 05/29/21 Unknown Chloride 100.5 mmol/L (98-107) 05/29/21 Unknown Carbon Dioxide 37 mmol/L (22-30) H 05/29/21 Unknown Anion Gap 11 mmol/L 05/29/21 Unknown BUN 54 mg/dL (9-20) H 05/29/21 Unknown Creatinine 1.4 mg/dL (0.8-1.3) H 05/29/21 Unknown Estimated GFR 49 ml/min 05/29/21 Unknown BUN/Creatinine Ratio 39 % 05/29/21 Unknown Glucose 139 mg/dL (75-100) H 05/29/21 Unknown POC Glucose 137 mg/dL (70-105) H 05/29/21 05:10 Lactic Acid 1.50 mmol/L (0.7-2.0) 05/24/21 22:55 Calcium 9.0 mg/dL (8.4-10.2) 05/29/21 Unknown Phosphorus 3.20 mg/dL (2.5-4.5) 05/28/21 06:30 Magnesium 2.50 mg/dL (1.7-2.3) H 05/29/21 Unknown Total Bilirubin 0.40 mg/dL (0.1-1.2) 05/29/21 Unknown AST 36 units/L (5-40) 05/29/21 Unknown ALT 27 units/L (7-56) 05/29/21 Unknown Alkaline Phosphatase 51 units/L (35-129) 05/29/21 Unknown Ammonia 14.0 umol/L (25-60) L 05/26/21 11:53 Troponin T 0.023 ng/mL (0.00-0.029) 05/24/21 04:58 NT-Pro-B Natriuret Pep 3136 pg/mL (0-900) H 05/23/21 17:37 Total Protein 6.9 g/dL (6.3-8.2) 05/29/21 Unknown Albumin 3.3 g/dL (3.9-5) L 05/29/21 Unknown Albumin/Globulin Ratio 0.9 % 05/29/21 Unknown Triglycerides 93 mg/dL (2-149) 05/23/21 17:37 Cholesterol 140 mg/dL (50-199) 05/23/21 17:37 LDL Cholesterol Direct 63 mg/dL (50-130) 05/23/21 17:37 HDL Cholesterol 67 mg/dL (40-59) H 05/23/21 17:37 Cholesterol/HDL Ratio 2.08 % 05/23/21 17:37 Arterial Blood Glucose 141 mg/dL (65-95) H 05/24/21 20:48 Arterial Blood Ionized Calcium 4.0 mg/dL (4.6-5.3) L 05/24/21 20:48 Urine Osmolality 353 Mosm/kg 05/25/21 18:00 Urine Creatinine 85.3 mg/dL (0.1-20.0) H 05/25/21 18:00 Urine Sodium 25 mmol/L 05/25/21 18:00 Urine Potassium 58.93 mmol/L 05/25/21 18:00 Microbiology: Microbiology 05/23/21 17:37 Peripheral/Venous Blood Culture - Final NO GROWTH AFTER 5 DAYS 05/23/21 17:37 Peripheral/Venous Blood Culture - Final NO GROWTH AFTER 5 DAYS Santos/IV: Voiding Method Urinal Active Medications - Current Medications Current Medications: Generic Name Dose Route Start Last Admin Trade Name Freq PRN Reason Stop Dose Admin Acetaminophen 650 mg 05/23/21 23:17 Acetaminophen 325 Mg Tab PO Q6H PRN Pain, Mild (1-3) Albuterol/Ipratropium 1 ampul 05/25/21 14:00 05/29/21 04:29 Ipratropium/Albuterol Sulfate 3 Ml Ampul.Neb IH 1 ampul TIDRT THERON Administration Alprazolam 0.5 mg 05/24/21 18:53 05/27/21 15:47 Alprazolam 0.5 Mg Tab PO 0.5 mg Q8H PRN Administration Anxiety Aspirin 81 mg 05/26/21 10:00 05/28/21 11:27 Aspirin 81 Mg Tab Chew PO 81 mg QDAY THERON Administration Atorvastatin Calcium 40 mg 05/24/21 22:00 05/28/21 21:29 Atorvastatin 40 Mg Tab PO 40 mg QHS THERON Administration Budesonide 0.5 mg 05/24/21 20:00 05/28/21 19:51 Budesonide 0.5 Mg/2 Ml Nebu IH 0.5 mg Q12HRT THERON Administration Cetirizine HCl 10 mg 05/24/21 12:00 05/28/21 11:27 Cetirizine 10 Mg Tab PO 10 mg QDAY THERON Administration Dextrose 50 ml 05/25/21 09:30 Dextrose 50% In Water (25gm) 50 Ml Syringe IV Q30MIN PRN Hypoglycemia Protocol Famotidine 20 mg 05/24/21 11:00 05/28/21 11:27 Famotidine 20 Mg Tab PO 20 mg DAILY THERON Administration Gabapentin 300 mg 05/27/21 16:00 05/29/21 00:15 Gabapentin 300 Mg Cap PO 300 mg Q8H THERON Administration Heparin Sodium (Porcine) 5,000 unit 05/24/21 06:00 05/29/21 07:01 Heparin 5,000 Unit/1 Ml Vial SUB-Q 5,000 unit Q8HR THERON Administration Hydralazine HCl 10 mg 05/23/21 23:30 05/24/21 18:02 Hydralazine 20 Mg/1 Ml Inj IV 10 mg Q6H PRN Administration SBP >/=165; DBP >/=100 Hydralazine HCl 50 mg 05/24/21 20:00 05/29/21 07:00 Hydralazine 25 Mg Tab PO 50 mg Q8HR THERON Administration Insulin Human Regular 0 units 05/25/21 09:00 Insulin Regular, Human 100 Units/1 Ml SUB-Q Q6H PRN Hyperglycemia Protocol Levalbuterol HCl 0.63 mg 05/24/21 19:52 05/26/21 03:28 Levalbuterol 0.63 Mg/3 Ml Nebu IH 0.63 mg Q6H PRN Administration Shortness Of Breath Methylprednisolone Sodium Succinate 40 mg 05/29/21 18:00 Methylprednisolone Sod Succinate 40 Mg/1 Ml Inj IV 05/30/21 06:01 Q12H [facility] Methylprednisolone Sodium Succinate 40 mg 05/31/21 10:00 Methylprednisolone Sod Succinate 40 Mg/1 Ml Inj IV 05/31/21 10:01 Q24H [facility] Metoprolol Tartrate 50 mg 05/28/21 14:00 05/28/21 21:29 Metoprolol Tartrate 50 Mg Tab PO Not Given TID [facility] Nitroglycerin 0.4 mg 05/23/21 23:17 Nitroglycerin 0.4 Mg Tab Subl SL Q5M PRN Chest Pain Ondansetron HCl 4 mg 05/23/21 23:17 Ondansetron 4 Mg/2 Ml Inj IV Q8H PRN Nausea And Vomiting Oxycodone/Acetaminophen 1 tab 05/23/21 23:17 05/29/21 07:01 Oxycodone /Acetaminophen 5-325mg Tab PO 1 tab Q6H PRN Administration Pain, Moderate (4-6) Pseudoephedrine/Acetam/Chlorphenir 7.5 ml 05/26/21 20:10 05/29/21 04:54 Guaifenesin/Codeine 100-10mg Oral Liqd 5 Ml PO 7.5 ml Q4H PRN Administration Cough Ropinirole HCl 1 mg 05/24/21 22:00 05/28/21 21:30 Ropinirole 1 Mg Tab PO 1 mg QHS THERON Administration Senna 17.2 mg 05/25/21 22:00 05/28/21 21:27 Sennosides 8.6 Mg Tab PO 17.2 mg QHS THERON Administration Sodium Chloride 10 ml 05/24/21 10:00 05/28/21 21:30 Sodium Chloride 0.9% 10 Ml Flush Syringe IV 10 ml BID THERON Administration Sodium Chloride 10 ml 05/23/21 23:17 Sodium Chloride 0.9% 10 Ml Flush Syringe IV PRN PRN LINE FLUSH Nutrition/Malnutrition Assess - Dietary Evaluation Nutrition/Malnutrition Findings: Nutrition Notes Start: 05/25/21 11:30 Freq: Status: Active Protocol: Document 05/27/21 09:12 [facility] (Rec: 05/27/21 09:21 [facility] [id number]) Nutrition Notes Need for Assessment generated from: MD Order Initial or Follow up Reassessment Current Diagnosis COPD,Hypertension,Heart Failure Other Pertinent Diagnosis Exacerbation of COPD and CHF, r/o ACS Current Diet NPO Labs/Tests Reviewed Pertinent Medications Lasix Height 5 ft 6 in Weight 91.6 kg [place] Body Weight (kg) 64.54 BMI 32.5 Weight Status Obese Subjective/Other Information RD consulted for TF. Per RN note yesterday, pt able to swallow water, however, PRECIPITATOR OPERATOR eval ordered to confirm safe swallow. Burn Absent Trauma Absent #1 Nutrition Diagnosis Predicted suboptimal energy intake,Inadequate oral intake Comments: CHANGED Etiology CHF/COPD exacerbation As Evidenced by Signs and Symptoms pt NPO Is patient on ventilator? No Is Patient Ambulatory and/or Out of Bed No REE-([facility]-confined to bed) 1918.596 Kcal/Kg value to use for calculation 20 Approximate Energy Requirements Using 1832 kcal/Kg Calculation Used for Recommendations Kcal/kg Additional Notes Pro needs 2g/kg IBW: 129g/day Fluid needs 1ml/kcal Nutrition Intervention Change Diet Order: Advance diet when medically feasible Nutrition Support: If necessary, recommended TF formula is Promote at 75ml/hr with 50ml water flush q4h. Goal #1 Either advance diet or start EN support to meet nutrient needs Anticipated Discharge Needs: Unable to identify at this time Follow-Up By: 05/29/21 Additional Comments F/U: PRECIPITATOR OPERATOR eval, diet advancement vs need for TF, resp status
[2021-05-29] MEDS: BUDESONIDE 0.5 MG/2 ML NEBU IH SCH (08:39)
--- NOTE | 2021-05-29 08:54 | Progress Note ---
Assessment and Plan Tachycardia reported with ventricular rate of 170 but there is no available documentation of his actual rhythm. Amiodarone discontinued and replaced with metoprolol 50mg TID. Shortness of breath COPD exacerbation Echocardiogram shows normal left ventricle systolic function with ejection fraction 55-60%. Tricuspid regurgitation doppler analysis reports the pulmonary artery systolic pressure at within normal limits. Conservative cardiac management. Subjective Date of service: 05/29/21 Interval history: Patient is resting in bed comfortably. No cardiac events. Currently, he is stable sinus rhythm, on telemetry. Objective Vital Signs Temp Pulse Pulse Pulse Resp Resp Resp 05/29/21 08:44 05/29/21 08:40 74 18 05/29/21 07:00 72 05/29/21 04:39 82 22 05/29/21 04:13 97.5 F L 72 21 05/29/21 04:00 65 05/28/21 22:28 97.9 F 60 19 05/28/21 21:31 65 20 05/28/21 21:29 65 05/28/21 21:28 05/28/21 21:21 72 20 05/28/21 21:11 69 20 05/28/21 21:01 64 20 05/28/21 20:51 65 20 05/28/21 20:41 62 21 05/28/21 20:31 66 24 05/28/21 20:21 77 30 H 05/28/21 20:15 05/28/21 20:11 66 20 05/28/21 20:00 97.0 F L 65 14 05/28/21 19:54 63 61 22 20 05/28/21 19:51 63 19 05/28/21 19:41 62 20 05/28/21 19:31 63 14 05/28/21 19:21 64 15 05/28/21 19:11 70 22 05/28/21 19:01 67 21 05/28/21 18:51 67 19 05/28/21 18:41 69 20 05/28/21 18:31 64 21 05/28/21 18:21 63 21 05/28/21 18:11 68 22 05/28/21 18:00 70 26 H 05/28/21 17:51 70 25 H 05/28/21 17:41 82 20 05/28/21 17:31 64 17 05/28/21 17:21 63 17 05/28/21 17:11 63 19 05/28/21 17:01 56 L 15 05/28/21 16:51 56 L 15 05/28/21 16:41 55 L 16 05/28/21 16:31 54 L 16 05/28/21 16:21 54 L 15 05/28/21 16:11 56 L 17 05/28/21 16:01 58 L 16 05/28/21 16:00 05/28/21 15:51 67 15 05/28/21 15:41 76 17 05/28/21 15:31 83 19 05/28/21 15:21 91 H 21 05/28/21 15:16 82 05/28/21 15:11 103 H 16 05/28/21 15:01 91 H 21 05/28/21 15:00 97.8 F 05/28/21 14:51 83 16 05/28/21 14:41 91 H 19 05/28/21 14:31 82 17 05/28/21 14:21 86 21 05/28/21 14:11 69 15 05/28/21 14:00 83 15 05/28/21 13:51 83 15 05/28/21 13:41 86 15 05/28/21 13:31 101 H 27 H 05/28/21 13:21 110 H 20 05/28/21 13:11 138 H 22 05/28/21 13:01 86 21 05/28/21 12:51 102 H 21 05/28/21 12:41 109 H 14 05/28/21 12:31 131 H 15 05/28/21 12:21 88 18 05/28/21 12:11 82 16 05/28/21 12:03 97.5 F L 05/28/21 12:01 90 23 05/28/21 12:00 05/28/21 11:51 95 H 24 05/28/21 11:41 94 H 26 H 05/28/21 11:31 93 H 23 05/28/21 11:21 92 H 24 05/28/21 11:11 100 H 21 05/28/21 11:01 91 H 22 05/28/21 10:51 95 H 20 05/28/21 10:41 93 H 22 05/28/21 10:31 92 H 21 05/28/21 10:27 05/28/21 10:21 92 H 18 05/28/21 10:20 89 20 05/28/21 10:11 89 15 05/28/21 10:00 86 18 05/28/21 09:51 99 H 22 05/28/21 09:41 87 28 H 05/28/21 09:31 92 H 24 05/28/21 09:21 89 27 H 05/28/21 09:11 94 H 25 H 05/28/21 09:00 92 H 24 BP Pulse Ox 05/29/21 08:44 93 05/29/21 08:40 05/29/21 07:00 159/94 05/29/21 04:39 05/29/21 04:13 159/94 93 05/29/21 04:00 94 05/28/21 22:28 140/60 88 05/28/21 21:31 139/68 99 05/28/21 21:29 139/68 05/28/21 21:28 139/68 05/28/21 21:21 139/68 98 05/28/21 21:11 139/68 97 05/28/21 21:01 139/68 97 05/28/21 20:51 139/68 97 05/28/21 20:41 139/68 94 05/28/21 20:31 139/68 95 05/28/21 20:21 139/68 92 05/28/21 20:15 96 05/28/21 20:11 139/68 100 05/28/21 20:00 139/68 96 05/28/21 19:54 05/28/21 19:51 157/85 97 05/28/21 19:41 157/85 99 05/28/21 19:31 157/85 97 05/28/21 19:21 157/85 98 05/28/21 19:11 157/85 94 05/28/21 19:01 157/85 96 05/28/21 18:51 157/85 96 05/28/21 18:41 157/85 98 05/28/21 18:31 157/85 98 05/28/21 18:21 157/85 96 05/28/21 18:11 157/85 98 05/28/21 18:00 157/85 98 05/28/21 17:51 155/80 98 05/28/21 17:41 155/80 97 05/28/21 17:31 155/80 99 05/28/21 17:21 155/80 100 05/28/21 17:11 155/80 99 05/28/21 17:01 155/80 100 05/28/21 16:51 155/80 100 05/28/21 16:41 155/80 100 05/28/21 16:31 155/80 100 05/28/21 16:21 155/80 100 05/28/21 16:11 155/80 100 05/28/21 16:01 155/80 100 05/28/21 16:00 100 05/28/21 15:51 142/89 100 05/28/21 15:41 142/89 100 05/28/21 15:31 142/89 99 05/28/21 15:21 142/89 80 L 05/28/21 15:16 142/89 05/28/21 15:11 142/89 05/28/21 15:01 142/89 05/28/21 15:00 05/28/21 14:51 142/89 98 05/28/21 14:41 142/89 05/28/21 14:31 142/89 05/28/21 14:21 142/89 05/28/21 14:11 142/89 05/28/21 14:00 142/89 05/28/21 13:51 160/78 05/28/21 13:41 160/78 05/28/21 13:31 160/78 85 05/28/21 13:21 160/78 05/28/21 13:11 160/78 05/28/21 13:01 160/78 05/28/21 12:51 160/78 98 05/28/21 12:41 160/78 99 05/28/21 12:31 160/78 98 05/28/21 12:21 160/78 98 05/28/21 12:11 160/78 97 05/28/21 12:03 05/28/21 12:01 160/78 97 05/28/21 12:00 96 05/28/21 11:51 152/78 97 05/28/21 11:41 152/78 96 05/28/21 11:31 152/78 99 05/28/21 11:21 152/78 98 05/28/21 11:11 152/78 98 05/28/21 11:01 150/81 98 05/28/21 10:51 150/81 98 05/28/21 10:41 150/81 99 05/28/21 10:31 136/69 99 05/28/21 10:27 100 05/28/21 10:21 136/69 100 05/28/21 10:20 05/28/21 10:11 136/69 05/28/21 10:00 150/81 05/28/21 09:51 142/70 05/28/21 09:41 142/70 05/28/21 09:31 142/70 99 05/28/21 09:21 142/70 89 05/28/21 09:11 142/70 98 05/28/21 09:00 136/69 95 - Physical Examination General: No Apparent Distress, Cachectic HEENT: Positive: PERRL Neck: Positive: neck supple Cardiac: Positive: Reg Rate and Rhythm Lungs: Positive: Decreased Breath Sounds Neuro: Positive: Weakness Extremities: Absent: edema - Labs and Meds Cardiac Enzymes 05/29/21 Range/Units Unknown AST 36 (5-40) units/L Coagulation 05/29/21 Range/Units 04:20 PT 16.1 H (12.2-14.9) Sec. INR 1.23 H (0.87-1.13) CBC 05/29/21 Range/Units 04:20 WBC 10.4 (4.5-11.0) K/mm3 RBC 4.53 (3.65-5.03) M/mm3 Hgb 12.7 (11.8-15.2) gm/dl Hct 39.7 (35.5-45.6) % Plt Count 232 (140-440) K/mm3 Comprehensive Metabolic Panel 05/29/21 Range/Units Unknown Sodium 144 (137-145) mmol/L Potassium 4.4 (3.6-5.0) mmol/L Chloride 100.5 (98-107) mmol/L Carbon Dioxide 37 H (22-30) mmol/L BUN 54 H (9-20) mg/dL Creatinine 1.4 H (0.8-1.3) mg/dL Glucose 139 H (75-100) mg/dL Calcium 9.0 (8.4-10.2) mg/dL AST 36 (5-40) units/L ALT 27 (7-56) units/L Alkaline Phosphatase 51 (35-129) units/L Total Protein 6.9 (6.3-8.2) g/dL Albumin 3.3 L (3.9-5) g/dL
[2021-05-29] MEDS: ASPIRIN 81 MG TAB CHEW PO SCH (10:32)
[2021-05-29] MEDS: CETIRIZINE 10 MG TAB PO SCH (10:32)
[2021-05-29] MEDS: FAMOTIDINE 20 MG TAB PO SCH (10:32)
[2021-05-29] MEDS: METOPROLOL TARTRATE 50 MG TAB PO SCH ×2 (10:36→14:29)
--- NOTE | 2021-05-29 10:38 | Discharge Summary ---
Providers - Providers Date of Admission: 05/25/21 08:54 Date of discharge: 05/29/21 Attending physician: KACEY GROSSMAN 05/23/21 Consult to Cardiac Rehabilitation [CONS] Routine Reason For Exam: Phase I 05/23/21 23:17 Consult to Physician [CONS] Routine Comment: Consulting Provider: ALEJANDRA HALL Physician Instructions: Reason For Exam: chf 05/26/21 07:48 Speech Therapy Evaluation and Treat [CONS] Routine Reason For Exam: needs eval, coughing with PO intake 05/26/21 10:26 Consult to Dietitian/Nutrition [CONS] Routine Physician Instructions: Reason For Exam: Reason for Consult: Write/Manage Tube Feeding 05/29/21 08:06 Physical Therapy Evaluation and Treat [CONS] Routine Comment: Reason For Exam: Deconditioning [facility] care [facility]: [facility] Hospitalization Reason for admission: Acute hypoxic respiratory failure Condition: Stable Hospital course: This is an 75-year-old female with COPD on home oxygen of 2.5 L and HTN who was admitted for acute COPD exacerbation, acute exacerbation of chronic CHF, acute on chronic hypoxic respiratory failure, NSTEMI, oropharyngeal dysphagia, GERD, acute kidney injury. Work-up in the emergency department revealed proBNP of 3136, troponin 0 0.03 and CXR showed bibasilar segmental atelectasis/scarring with patchy parenchymal disease in the right lower lung base. Hospital course: 05/24: Was on 2 L nasal cannula and awake, alert and oriented without any acute distress in the a.m. when examined by the hospitalist however around 1900 code met was called as the patient was very short of breath and hypertensive with a blood pressure of 200/110, tachycardia into the 170s and very agitated and restless. He was also wheezing. Patient was given IV hydralazine, IV Cardizem and started on a Cardizem drip and transferred to the ICU on BiPAP therapy. [facility] was consulted. 05/25: Patient weaned to NC from BiPAP this morning. Weaning Precedex as tolerated. AM labs 05/26: Patient had moments of lucidity and followed by [facility]MS. Patient failed bedside swallow overngith so ST eval ordered. CT head shows no acute intercranial abnomality. Patient is alert and orientated. Santos removed. 05/27 gisell overnight speech to see today 05/29/2021. Patient is s/p BiPAP and now with 2 L nasal cannula satting at 96%. Patient with home oxygen of 2.5 L. Continue bronchodilators/nebulizers. Continue Solu-Medrol 40 mg IV with taper. Atrial fibrillation with rate control on metoprolol 3 times daily. Amiodarone drip has been discontinued. Echocardiogram shows normal left ventricle systolic function with ejection fraction 55-60%. Tricuspid regurgitation doppler analysis reports the pulmonary artery systolic pressure at within normal limits. This echocardiogram was completed on 05/23/2021. Continue CIWA protocol for EtOH abuse. PT evaluation for discharge planning. Creatinine improved to baseline of 1.4. Patient is back to baseline respiratory status and is felt to have received maximal hospital benefit for discharge. Dedicated discharge time 35 minutes Disposition: 01 HOME / SELF CARE / HOMELESS Final Discharge Diagnosis (Prints w/discharge instructions): Acute on chronic hypoxic respiratory failure, acute COPD exacerbation, acute on chronic diastolic heart failure, NSTEMI, EtOH abuse, oropharyngeal dysphagia, GERD, acute kidney Core Measure Documentation - Palliative Care Palliative Care/ Comfort Measures: Not Applicable - Core Measures Any of the following diagnoses?: none Exam - Constitutional Vitals: Temp Pulse Resp BP Pulse Ox 97.6 F 74 18 153/62 93 05/29/21 08:12 05/29/21 08:40 05/29/21 08:40 05/29/21 08:12 05/29/21 08:44 General appearance: Present: no acute distress, well-nourished - EENT Eyes: Present: PERRL ENT: hearing intact, clear oral mucosa - Neck Neck: Present: supple, normal ROM - Respiratory Respiratory effort: normal Respiratory: bilateral: CTA - Cardiovascular Heart Sounds: Present: S1 & S2. Absent: rub, click - Extremities Extremities: pulses symmetrical, No edema Peripheral Pulses: within normal limits - Abdominal General gastrointestinal: Present: soft, non-tender, non-distended, normal bowel sounds Male genitourinary: Present: normal - Integumentary Integumentary: Present: clear, warm, dry - Musculoskeletal Musculoskeletal: gait normal, strength equal bilaterally - Psychiatric Psychiatric: appropriate mood/affect, intact judgment & insight - Neurologic Neurologic: CNII-XII intact, moves all extremities Plan Activity: advance as tolerated Weight Bearing Status: Weight Bear as Tolerated Diet: low fat, low cholesterol, low salt Follow [facility] [Primary Care Provider] - 7 Days Prescriptions: hydrALAZINE [Apresoline TAB] 50 mg PO Q8HR #90 tablet Warfarin [Coumadin] 2.5 mg PO QHS #30 Warfarin [Coumadin] 3 mg PO QHS #30 Alendronate Sodium [Fosamax] 70 mg PO QWEEK #4 Gabapentin 300 mg PO QAC #30 cap Gabapentin 600 mg PO QHS #30 cap Metoprolol [Lopressor TAB] 50 mg PO TID #90 tablet Pantoprazole [Protonix TAB] 40 mg PO QDAC #30 Ropinirole HCl [Requip] 4 mg PO QHS #30
[2021-05-29 12:34] VITALS: BP 150/85
[2021-05-29] MEDS ORDERED: methylPREDNISolone Sod Succinate 40 MG/1 ML INJ IV SCH (18:00)
[2021-05-31] MEDS ORDERED: methylPREDNISolone Sod Succinate 40 MG/1 ML INJ IV SCH (10:00)
== END 2021-05-29 16:08 | disposition home or self-care (01) | DRG 280 ==
LOC: ED 13:35 → 4A 23:17 → CC1 05-24 21:13 → OBSVTOIN 05-25 08:54 → 4A 05-28 22:26
PROVIDERS: ADMIT Hospitalist; ATTEND Hospitalist
PROC: 4A033R1 Measurement of Arterial Saturation, Peripheral, Percutaneous Approach (ICD-10-PCS; principal; 2021-05-24)
PROC: 5A09457 Assistance with Respiratory Ventilation, 24-96 Consecutive Hours, Continuous Positive Airway Pressure (ICD-10-PCS; 2021-05-24)
DX: I11.0 Hypertensive heart disease with heart failure (principal); J96.21 Acute and chronic respiratory failure with hypoxia; I21.4 Non-ST elevation (NSTEMI) myocardial infarction; N17.0 Acute kidney failure with tubular necrosis; E87.1 Hypo-osmolality and hyponatremia; J44.1 Chronic obstructive pulmonary disease with (acute) exacerbation; F10.239 Alcohol dependence with withdrawal, unspecified; J98.11 Atelectasis; I24.9 Acute ischemic heart disease, unspecified; I50.33 Acute on chronic diastolic (congestive) heart failure; I48.91 Unspecified atrial fibrillation; K21.9 Gastro-esophageal reflux disease without esophagitis; R13.12 Dysphagia, oropharyngeal phase; Z96.643 Presence of artificial hip joint, bilateral; R00.0 Tachycardia, unspecified; Z90.49 Acquired absence of other specified parts of digestive tract
CPT/HCPCS: 36415; 36600; 70450; 71045; 74018; 80048; 80053; 80061; 82140; 82570; 82805; 82962; 83735; 83880; 83935; 84100; 84133; 84300; 84484; 85007; 85025; 85027; 85610; 85730; 87040; 93005; 93306; 93970; 94640; 94644; 94660; 94760; G0378; A9270-GY; J0282; J0360; J0696; J1170; J1644; J1940; J2060; J2270; J2405; J2920; J2930; J3490; J7060